=== PATIENT | female | born 1960 | race Caucasian/White ===

== ENCOUNTER → 2019-09-21 13:49 | Outpatient (BNVA) | payer MEDICAID, SELFPAY | PROVIDERS: PCP Family Medicine; Visit Provider Otolaryngology | DX: J32.9 Chronic sinusitis, unspecified (principal); J34.2 Deviated nasal septum; J34.3 Hypertrophy of nasal turbinates; K21.9 Gastro-esophageal reflux disease without esophagitis; R49.0 Dysphonia; J38.1 Polyp of vocal cord and larynx; F17.210 Nicotine dependence, cigarettes, uncomplicated | CPT/HCPCS: 99203; 99214 ==

== ENCOUNTER 2019-10-05 09:41 | Outpatient (CLI) | payer MEDICAID, SELFPAY ==
--- NOTE | 2019-10-05 10:30 | CT_ITS ---
WS: [id number] CT SINUSES TECHNIQUE: Noncontrast CT of the paranasal sinuses with coronal and sagittal reformatted images. CLINICAL INFORMATION: chronic sinusitis COMPARISON: 8 ,009 DLP: 504.[address] scans at [facility] use at least one of these dose optimization techniques: automat ed exposure control; mA and/or kV adjustment per patient size (includes targeted exams where dose is matched to clinical indication); or iterative reconstruction. FINDINGS: Nasal septum is midline. Prior postoperative changes maxillary antrostomies with ethmoidectomies. Max illary antra are patent. Ostiomeatal units are patent. Right maxillary retention cyst measuring 9 mm. Left maxillary sinus is well aerated. A few secretions within the right frontal sinus and frontal ethmoidal recess. Trace mucosal thickenin g in the ethmoid air cells. Secretions within the left sphenoid sinus consistent with sinusitis. Muco norma thickening along the sphenoid sinus ostia. Mastoid air cells are well aerated. Normal posterior n asopharynx. CT/CT sinus wo con* [id number] IMPRESSION: 1. Prior postoperative changes bilateral maxillary antrostomies and ethmoidect omies. Bilateral turbinate reductions. 2. Maxillary antra are patent. 3. Nasal septum is midline. 4. A few secretions consistent with mild sinusitis in the right frontoethmoida l recess and left sphenoid sinus. 5. Maxillary sinus well aerated with a 9 mm right retention cyst. 6. Mastoid air cells well aerated.
== END 2019-10-05 09:42 | disposition home or self-care (01) ==
LOC: CT 09:43
PROVIDERS: Family Provider Nurse Practitioner Family; Visit Provider Otolaryngology
DX: J32.9 Chronic sinusitis, unspecified (principal); Z98.890 Other specified postprocedural states
CPT/HCPCS: 70486

== ENCOUNTER → 2019-10-06 14:31 | Outpatient (BNVA) | payer MEDICAID, SELFPAY | PROVIDERS: Family Provider Nurse Practitioner Family; PCP Nurse Practitioner Family; Visit Provider Otolaryngology | DX: J34.2 Deviated nasal septum (principal); J34.3 Hypertrophy of nasal turbinates; J32.9 Chronic sinusitis, unspecified; K21.9 Gastro-esophageal reflux disease without esophagitis; R49.0 Dysphonia; J38.1 Polyp of vocal cord and larynx; F17.210 Nicotine dependence, cigarettes, uncomplicated | CPT/HCPCS: 31575; 96372; 99214; J3301 ==

== ENCOUNTER 2019-12-14 10:06 | Emergency (ER) | payer MEDICAID, SELFPAY ==
[2019-12-14 10:08] VITALS: BMI 25.7
[2019-12-14 10:11] VITALS: BP 131/96; PULSE 68; RESP 16; TEMP 36.8; O2SAT 98
--- NOTE | 2019-12-14 10:15 | ECG_ITS ---
Measurements Intervals [place] Rate: 68 P: 24 LA: 150 QRS: 6 QRSD: 120 T: 56 QT: 373 QTc: 397 SINUS RHYTHM MODERATE INTRAVENTRICULAR CONDUCTION DELAY [110+ ms QRS DURATION] Compared to ECG 04/25/2019 16:57:56 Intraventricular conduction delay now present Sinus bradycardia no longer present Electronically Signed On 12-14-2019 15:43:43 CDT by Bright Rivers M.D. [email or web address]
--- NOTE | 2019-12-14 10:15 | XR_ITS ---
WS: [id number] CHEST XRAY TECHNIQUE: Portable chest. CLINICAL INFORMATION: dyspnea/cough COMPARISON: April 25, 2019 FINDINGS: Heart: Normal cardiac silhouette. Lungs: Lungs are clear. No consolidation or pleural effusion. A few calcified granulomas. Bones: Normal visualized bony structures. XR/XR chest 1V portable [id number] IMPRESSION: No acute chest findings
--- NOTE | 2019-12-14 10:21 | ED_ITS ---
HPI - SOB/Dyspnea General: Chief Complaint: Shortness of Breath/Dyspnea Stated Complaint: sob Time Seen by Provider: 12/14/19 10:10 History of Present Illness: HPI Narrative: 59-year-old female presents emergency room with complaints of is initially having had a sinus infection she was seen on the or and started on some oral antibiotics she has about 2 days of those left. Despite says she continues to have shortness of breath aching in her chest with a moderately productive cough for green sputum. She denies any fever sweats or chills. She is not had any radiation of the pain into her neck or arms no vomiting or diarrhea she has had problems with asthma in the past but is currently not been using any inhalers. She denies any GI or symptoms denies any abdominal pain. MD elicited complaint: cough Pertinent past history: asthma Onset (ago): day(s) (5-6) Context: recent illness Timing: constant Severity: moderate Exacerbating factors: nothing Relieving factors: nothing Known history of: asthma Associated symptoms: Reports chest congestion and cough; Deny abdominal pain, chest pain, fever(s), nausea, orthopnea or vomiting Review of Systems Const: Denies: fever(s), chills, body aches, change in appetite, fatigue or malaise ENMT: Reports: nasal discharge and nasal congestion; Denies: throat pain or ear or mastoid pain Card: Reports: dyspnea on exertion; Denies: chest pain, edema or orthopnea Resp: Reports: change in phlegm color and chest congestion; Denies: dyspnea, productive cough or non-productive cough GI: Denies: abdominal pain, nausea, vomiting, hematemesis, coffee ground emesis, diarrhea, constipation, bloating, hematochezia or melena : Denies: flank pain, difficulty voiding, dysuria, urinary frequency or urinary urgency Skin/Breast: Denies: rash or pruritus PFSH ED PFSH: Medical History Anxiety and depression Celiac disease Chronic sinusitis Conversion disorder Dysphonia GERD (gastroesophageal reflux disease) Hypertension Hypothyroidism Nasal septal deformity Nasal turbinate hypertrophy SARAH (obstructive sleep apnea) Loren's edema of vocal folds Surgical History H/O colonoscopy 2017 H/O esophagogastroduodenoscopy 10/2013 H/O shoulder surgery H/O: hysterectomy History of carpal tunnel release History of ERCP Hx of appendectomy Hx of cholecystectomy Status post decompression of compartment syndrome right leg with several surgeries after horse accident Family History Other CAD (coronary artery disease) Diabetes Denies family history of Anesthesia complication Bleeding disorder Social History Smoking and tobacco status: current every day smoker Alcohol intake: never Household members: spouse Marital status: Current occupational status: disabled History of recent travel: No Physical Exam Const: COMMON NORMALS: no acute distress GENERAL APPEARANCE: cooperative and comfortable ORIENTATION/CONSCIOUSNESS: Yes awake, Yes oriented to person, Yes oriented to place and Yes oriented to time HENMT: COMMON NORMALS: normocephalic, atraumatic, hearing grossly normal bilaterally, external ears normal, EAC's normal, TM's normal bilaterally, Normal nasal mucous membranes and turbinates present, moist oral mucous membranes and oropharynx normal HEAD & SCALP: normocephalic and atraumatic NOSE: Normal nasal mucous membranes and turbinates present EXTERNAL EAR: Yes external ears normal EXTERNAL AUDITORY CANAL: EAC's normal TYMPANIC MEMBRANE: TM's normal bilaterally Eye: COMMON NORMALS: Equal, round and reactive pupils present, EOMs intact bilaterally, conjunctivae normal and no scleral icterus CONJUNCTIVA: Yes conjunctivae normal PUPIL: Yes Equal, round and reactive pupils present Neck/C-Spine: COMMON NORMALS: full ROM, no lymphadenopathy, supple and no JVD Lymph: LYMPHATIC: no lymphadenopathy noted and no lymphedema noted Resp: COMMON NORMALS: normal respiratory effort, No retractions, No use of accessory muscles and clear to auscultation bilaterally AUSCULTATION: clear to auscultation bilaterally Cardio: COMMON NORMALS: no JVD, regular rate, regular rhythm and No murmurs pr esent (Cardio) RATE: regular rate RHYTHM: regular rhythm GI: COMMON NORMALS: Soft to palpation and No hepatosplenomegaly present AUSCULTATION: Yes normoactive bowel sounds PALPATION: Yes Soft to palpation, No Tenderness to palpation present (GI), No Guarding due to palpation present (GI) and Yes No hepatosplenomegaly present Extremity: COMMON NORMALS: normal to inspection, capillary refill normal, no clubbing, cyanosis or edema, no calf tenderness and no pedal edema Neuro: SENSORIUM/ORIENTATION: Yes oriented to person, Yes oriented to place and Yes oriented to time Skin: COMMON NORMALS: no rashes or lesions noted GENERAL SKIN EXAM: no rashes or lesions noted Course Vital Signs: Vital signs: Vital Signs Temperature 98.3 F 12/14/19 10:11 Pulse Rate 71 12/14/19 11:16 Respiratory Rate 16 12/14/19 11:16 Blood Pressure 127/84 12/14/19 11:16 Pulse Oximetry 97 12/14/19 11:16 MDM - SOB/Dyspnea MDM Narrative: Medical decision making narrative: Chest x-ray is clear suspect she is having a little asthma attack we will put her in a short course of prednisone and an albuterol inhaler continue taking antibiotics previously prescribed Lab Data: Labs: Lab Results 12/14/19 12/14/19 Range/Units 10:22 10:22 WBC 5.8 (4.0-10.0) 10^3/ uL RBC 4.53 (4.1-5.3) 10^6/u L Hgb 14.2 (11.5-15.3) g/dL Hct 43.7 (37.0-47.0) % MCV 96.5 (81-99) fL MCH 31.3 (28.0-34.0) pg MCHC 32.5 (30.0-36.0) g/dL RDW 13.6 (12.1-15.1) % Plt Count 198 (130-400) 10^3/c mm MPV 10.6 H (7.4-10.4) fL Neut % (Auto) 68.2 % Lymph % (Auto) 19.7 % Warrick % (Auto) 9.9 % Eos % (Auto) 1.6 % Baso % (Auto) 0.3 % Neut # (Auto) 3.9 (1.8-7.7) 10^3/u L Lymph # (Auto) 1.1 (0.8-4.8) 10^3/u L Warrick # (Auto) 0.6 (0.2-0.9) 10^3/u L Eos # (Auto) 0.1 (0.0-0.8) 10^3/u L Baso # (Auto) 0.0 (0.0-0.1) 10^3/u L Nucleated RBC % (a uto) 0 % Nucleated RBCs # 0.0 /100WBC Sodium 139 (136-145) mmol/L Potassium 3.7 (3.5-5.1) mmol/L Chloride 101 (98-107) mmol/L Carbon Dioxide 28 (22-29) mmol/L Anion Gap 13.7 (5-19) BUN 20 (8-23) mg/dL Creatinine 0.9 (0.5-0.9) mg/dL GFR Calculation 63.7 L (90-130) mL/min Glucose 122 H (65-115) mg/dL Calculated Osmolal ity 286 (285-295) mOsm/k g Calcium 10.3 (8.5-10.5) mg/dL Total Bilirubin 0.5 (0.15-1.2) mg/dL AST 16 (0-32) U/L ALT 18 (0-33) U/L Alkaline Phosphata se 103 (35-105) IU/L Total Protein 7.4 (6.6-8.7) g/dL Albumin 4.4 (3.5-5.2) g/dL Globulin 3.0 (1.3-4.6) g/dL Discharge Plan Discharge Patient Disposition: Home, Self-Care Clinical Impression: Asthma Condition: Stable Prescriptions: New albuterol sulfate 90 mcg/actuation HFA aerosol inhaler 2 inh INHALATION Q4H PRN (Reason: shortness of breath or wheezing) Qty: 18 RF: 0 Medrol (Will) 4 mg tablets,dose pack See Rx Instructions .ROUTE .COMPLEX Qty: 21 RF: 0 No Action venlafaxine [Effexor XR] 150 mg capsule,extended release 24hr 150 mg PO DAILY RF: 0 metoprolol tartrate 25 mg tablet 25 mg PO BID RF: 0 levothyroxine 25 mcg capsule 25 mcg PO DAILY RF: 0 trazodone 100 mg tablet 150 mg PO BEDTIME RF: 0 buspirone 5 mg tablet 5 mg PO TID PRN (Reason: unknown) RF: 0 Zenpep 10,000-32,000 -42,000 unit capsule,delayed release(DR/EC) 1 cap PO TID Qty: 90 RF: 12 azelastine 137 mcg (0.1 %) aerosol,spray 2 spray INTRANASAL BID RF: 0 Flonase Allergy Relief 50 mcg/actuation Lacrosse,Suspension 2 spray INTRANASAL DAILY RF: 0 doxycycline hyclate 100 mg Capsule 100 mg PO BID RF: 0 Discharge Orders: Discharge Order (Routine); Ordered 12/14/19 Ordered By: Miguelito Nix Referrals: Candis Ramsey [Primary Care Provider] - Discharge Diet: Advance as tolerated Discharge Activity: Increase activity as tolerated Activity Restrictions/Additional Instructions: Follow-up with your primary care doctor if not improving return if worsens Discharge Date/Time: 12/14/19 11:16 Coding Level of Care Code ED Director Education for Chg Fwd Exam Comprehensive
[2019-12-14 10:32] LABS: Basophils % 0.3 %; Eosinophils # 0.1 10^3/uL (0.0-0.8); Eosinophils % 1.6 %; Hematocrit 43.7 % (37.0-47.0); Hemoglobin 14.2 g/dL (11.5-15.3); Lymphocytes # 1.1 10^3/uL (0.8-4.8); Lymphocytes % 19.7 %; Mean Corpuscular HGB Conc 32.5 g/dL (30.0-36.0); Mean Corpuscular Hemoglobin 31.3 pg (28.0-34.0); Mean Corpuscular Volume 96.5 fL (81-99); Mean Platelet Volume 10.6 fL (7.4-10.4); Monocytes # 0.6 10^3/uL (0.2-0.9); Monocytes % 9.9 %; Neutrophils # 3.9 10^3/uL (1.8-7.7); Neutrophils % 68.2 %; Nucleated Red Blood Cells % 0 %; Platelet Count 198 10^3/cmm (130-400); Red Blood Count 4.53 10^6/uL (4.1-5.3); Red Cell Distribution Width 13.6 % (12.1-15.1); White Blood Count 5.8 10^3/uL (4.0-10.0)
[2019-12-14 10:58] LABS: Alanine Aminotransferase 18 U/L (0-33); Albumin Level 4.4 g/dL (3.5-5.2); Alkaline Phosphatase 103 IU/L (35-105); Anion Gap 13.7 (5-19); Aspartate Amino Transferase 16 U/L (0-32); Blood Urea Nitrogen 20 mg/dL (8-23); Calcium 10.3 mg/dL (8.5-10.5); Carbon Dioxide 28 mmol/L (22-29); Chloride 101 mmol/L (98-107); Glomerular Filtration Rate 63.7 mL/min (90-130); Glucose 122 mg/dL (65-115); Osmolality Calculated 286 mOsm/kg (285-295); Potassium 3.7 mmol/L (3.5-5.1); Sodium 139 mmol/L (136-145); Total Bilirubin 0.5 mg/dL (0.15-1.2); Total Protein 7.4 g/dL (6.6-8.7)
[2019-12-14 11:16] VITALS: BP 127/84; PULSE 71; RESP 16; O2SAT 97
== END 2019-12-14 11:16 | disposition home or self-care (01) ==
PROVIDERS: Emergency Provider Family Medicine; PCP Nurse Practitioner Family
DX: J45.909 Unspecified asthma, uncomplicated (principal); K21.9 Gastro-esophageal reflux disease without esophagitis; I10 Essential (primary) hypertension; F17.210 Nicotine dependence, cigarettes, uncomplicated; E03.9 Hypothyroidism, unspecified
CPT/HCPCS: 12345; 36415; 71045; 80053; 85025; 93005; 99282; 99283

== ENCOUNTER 2020-02-03 12:36 | Outpatient (CLI) | payer MEDICAID, SELFPAY ==
--- NOTE | 2020-02-03 13:02 | MM_ITS ---
WS: [id number] SCREENING DIGITAL MAMMOGRAM WITH CAD HISTORY: SCREENING COMPARISON: 01/12/2019 and 01/01/2018 Bilateral CC and MLO views submitted. Computer aided detection analyzed. Breast composition: There are scattered areas of fibroglandular density. No suspicious masses, microc alcifications or architectural distortion. Benign calcification in the anterior LEFT breast. MM/[place] [id number] IMPRESSION: BI-RADS: 2-Benign FOLLOW UP: 1 Year Follow-up
== END 2020-02-03 12:37 | disposition home or self-care (01) ==
LOC: RADSHAW 12:40
PROVIDERS: PCP Nurse Practitioner Family; Visit Provider Nurse Practitioner Family
DX: Z12.31 Encounter for screening mammogram for malignant neoplasm of breast (principal)
CPT/HCPCS: 77067

== ENCOUNTER 2020-04-25 09:03 | Outpatient (CLI) | payer MEDICAID, SELFPAY ==
--- NOTE | 2020-04-25 09:13 | MR_ITS ---
WS: [id number] MRI RIGHT SHOULDER NONCONTRAST TECHNIQUE: Sagittal T2, coronal T1, T2 and proton density imaging. Axial gradient PDE imaging. CLINICAL INFORMATION: RIGHT ANTERIOR SHOULDER PAIN COMPARISON: MRI FINDINGS: Moderate degenerative arthritis at the AC joint with mild downsloping of the acromion. Mild edema at the AC joint. Chronic thinning of the distal supraspinatus. Supraspinatus appears intact. Normal infr aspinatus. Normal teres minor. Subscapularis is normal in appearance. Normal biceps tendon in the bic ipital groove. Degenerative fraying of the glenoid labrum. Cystic degenerative changes involving the anterior latera l humeral head. Moderate to advanced degenerative arthritis glenohumeral joint with joint space narro wing. Loose body in the axillary recess measuring 12 mm. This was present previously but slightly lar danish today. No other significant interval changes. MR/MR shoulder RT wo con* [id number] IMPRESSION: 1. Moderate arthritis at the AC joint with edema and mild downsloping of the a cromion. 2. Chronic thinning of the supraspinatus. Rotator cuff appears intact. 3. Normal biceps tendon in the bicipital groove. 4. 12 mm calcified loose body in the axillary recess. 5. Subchondral cystic degenerative changes involving the humeral head.
== END 2020-04-25 09:04 | disposition home or self-care (01) ==
LOC: RADWPI 09:06
PROVIDERS: PCP Nurse Practitioner Family; Visit Provider Nurse Practitioner Family
DX: M19.011 Primary osteoarthritis, right shoulder (principal)
CPT/HCPCS: 73221

== ENCOUNTER 2020-11-15 10:15 | Outpatient (RCR) | payer MEDICAID, SELFPAY | END 2020-11-23 23:59 | disposition home or self-care (01) | LOC: SPT 10:15 | PROVIDERS: PCP Nurse Practitioner Family; Referring Provider Physician Assistant; Visit Provider Physician Assistant | DX: Z96.611 Presence of right artificial shoulder joint (principal) | CPT/HCPCS: 97161 ==

== ENCOUNTER → 2021-01-15 15:05 | Outpatient (BNVA) | payer MEDICAID, SELFPAY | PROVIDERS: PCP Family Medicine Adult Medicine; Visit Provider Family Medicine Adult Medicine | DX: K86.81 Exocrine pancreatic insufficiency (principal); K90.0 Celiac disease; E73.9 Lactose intolerance, unspecified; F41.8 Other specified anxiety disorders; J01.90 Acute sinusitis, unspecified; J30.9 Allergic rhinitis, unspecified | CPT/HCPCS: 80053; 85025 ==

== ENCOUNTER → 2021-01-22 09:18 | Outpatient (BNVA) | payer MEDICAID, SELFPAY | PROVIDERS: PCP Family Medicine Adult Medicine; Visit Provider Internal Medicine | DX: N18.30 Chronic kidney disease, stage 3 unspecified (principal); R30.0 Dysuria; K90.0 Celiac disease | CPT/HCPCS: 80053; 81003; 82607; 82746; 83036; 83550; 84443 ==

== ENCOUNTER 2021-02-04 07:35 | Outpatient (CLI) | payer MEDICAID, SELFPAY ==
--- NOTE | 2021-02-04 08:00 | MR_ITS ---
WS: [id number] Diane Mendoza 06 09 1960 INDICATION: Renal insufficiency. Pancreatitis. TECHNIQUE: Axial T2, coronal T2, coronal 2-D fiesta, dual Echo and out of phase FINDINGS: Liver is normal in appearance. No intrahepatic biliary ductal dilatation. Normal common amanda e duct. Pancreas is normal in appearance. Normal pancreatic head. No hydronephrosis in either kidney. Tiny left renal cysts. Largest measures 11 mm. Normal caliber abdominal aorta. Prior cholecystectomy. Adrenal glands are normal. Normal GE junction. Normal spleen. Normal portal vein and splenic vein. No other significant findings. MR/MR abdomen wo con [id number] IMPRESSION: 1. Liver is normal in appearance where visualized. No intrahepatic biliary naa may dilatation. 2. Pancreas is normal in appearance. Normal pancreatic head. Normal common amanda e duct. 3. No hydronephrosis in either kidney. Normal renal parenchyma. 4. A few tiny incidental simple left renal cysts largest measuring 11 mm. 5. Prior cholecystectomy.
== END 2021-02-04 07:36 | disposition home or self-care (01) ==
LOC: RADSHAW 07:36
PROVIDERS: PCP Family Medicine Adult Medicine; Visit Provider Family Medicine Adult Medicine
DX: N18.30 Chronic kidney disease, stage 3 unspecified (principal); K85.90 Acute pancreatitis without necrosis or infection, unspecified; Z90.49 Acquired absence of other specified parts of digestive tract; Q61.02 Congenital multiple renal cysts
CPT/HCPCS: 74181

== ENCOUNTER 2021-02-25 13:17 | Outpatient (CLI) | payer MEDICAID, SELFPAY ==
--- NOTE | 2021-02-25 14:15 | US_ITS ---
WS: [id number] ULTRASOUND RENAL TECHNIQUE: Ultrasound examination of both kidneys. CLINICAL INFORMATION: CKD COMPARISON: None. FINDINGS: RIGHT: Right kidney is normal in size and appearance. Echogenicity: Normal. Cortical thickness: 1.0 cm; Normal. Hydronephrosis: None. Perinephric fluid: None. Right kidney measures: 11.3 cm x 3.5 cm x 4.4 cm. LEFT: Left upper pole renal cyst measuring 8.7 x 7.9 mm Left kidney is normal in size and appearance. Echogenicity: Normal. Cortical thickness: 1.1 cm; Normal. Hydronephrosis: None. Perinephric fluid: None. Left kidney measures: 11.3 cm x 6.4 cm x 4.1 cm. Normal visualized aorta. Bladder is incompletely distended measuring 49 cc. US/US renal BI* [id number] IMPRESSION: 1. No hydronephrosis in either kidney. 2. Tiny left upper pole simple renal cyst measuring 8.7 x 7.9 mm
== END 2021-02-25 13:18 | disposition home or self-care (01) ==
PROVIDERS: PCP Family Medicine Adult Medicine; Visit Provider Internal Medicine
DX: N18.30 Chronic kidney disease, stage 3 unspecified (principal); Q61.01 Congenital single renal cyst
CPT/HCPCS: 76770

== ENCOUNTER 2021-03-01 12:14 | Outpatient (CLI) | payer MEDICAID, SELFPAY ==
--- NOTE | 2021-03-01 | USCV_ITS ---
Reji Diane Age: 60 Gender: F : 1960 Exam Date: 03/01/2021 12:34 Ordering Phys: Tereso Larson MD Technologist: Aarti Braswell [place] [facility] [place]: DECREASED GFR Aortic Velocity @ SMA (cm/s) 60.7 RIGHT KIDNEY LEFT KIDNEY Velocity (cm/s) Velocity (cm/s) Sys/Salazar Sys/Salazar Resistive Index Resistive Index 31.1 / 11.1 0.64 Proximal Renal Artery 99.6 / 40.9 0.59 59.2 / 23.7 0.60 Mid Renal Artery 79.2 / 33.2 0.58 63.9 / 26.0 0.59 Distal Renal Artery 63.8 / 33.2 0.48 54.4 / 24.8 0.54 Hilar 56.4 / 21.8 0.61 44.4 / 17.1 0.62 Upper Pole 30.7 / 13.4 0.56 47.9 / 19.7 0.59 Mid Pole 36.0 / 13.8 0.62 45.3 / 17.1 0.62 Lower Pole 31.0 / 13.8 0.55 1.10 Renal Aortic Ratio 1.64 Accleration Index (cm/sec2) 634.00 Hilar 720.00 368.00 Upper Pole 832.00 1127.0 Mid Pole 452.00 0 636.00 Lower Pole 327.00 104.7 Kidney Length (mm) 97.9 FINDINGS Comparison: none. No evidence of abdominal aortic aneurysm. There is no evidence of hemodynamically significant right renal artery stenosis. There is no evidence of hemodynamically significant left renal artery stenosis. CONCLUSIONS There is no sonographic evidence of hemodynamically significant renal artery stenosis bilaterally. Dr. Anabel Bolanos DO (Electronically Signed) Final Date: 01 March 2021 13:27 S
== END 2021-03-01 12:15 | disposition home or self-care (01) ==
LOC: RAD 12:15
PROVIDERS: PCP Family Medicine Adult Medicine; Visit Provider Family Medicine Adult Medicine
DX: N18.30 Chronic kidney disease, stage 3 unspecified (principal); K90.0 Celiac disease
CPT/HCPCS: 93975

== ENCOUNTER 2021-07-08 14:16 | Outpatient (CLI) | payer MEDICAID, SELFPAY ==
--- NOTE | 2021-07-08 14:20 | MM_ITS ---
WS: [id number] BILATERAL DIGITAL SCREENING MAMMOGRAPHY WITH CAD CLINICAL INFORMATION: SCREENING HISTORY: Screening mammogram. No current complaints. COMPARISON: February 03, 2020 TECHNIQUE: Bilateral CC and MLO views. FINDINGS: Scattered fibroglandular densities bilaterally. No suspicious focal mass, asymmetry, calcifications, or architectural distortion. No evidence of malignancy. MM/[place] [id number] IMPRESSION: BI-RADS: 1-Negative FOLLOW UP: 1 Year Follow-up Recommend return to annual screening mammography.
== END 2021-07-08 14:17 | disposition home or self-care (01) ==
LOC: RADSHAW 14:19
PROVIDERS: PCP Family Medicine Adult Medicine; Visit Provider Family Medicine Adult Medicine
DX: Z12.31 Encounter for screening mammogram for malignant neoplasm of breast (principal)
CPT/HCPCS: 77067

== ENCOUNTER → 2021-07-16 14:28 | Outpatient (BNVA) | payer MEDICAID, SELFPAY | PROVIDERS: PCP Family Medicine Adult Medicine; Visit Provider Family Medicine Adult Medicine | DX: E03.9 Hypothyroidism, unspecified (principal); N18.2 Chronic kidney disease, stage 2 (mild) | CPT/HCPCS: 80053; 84443; 85025 ==

== ENCOUNTER 2021-10-31 11:20 | Outpatient (CLI) | payer MEDICAID, SELFPAY ==
--- NOTE | 2021-10-31 12:00 | CT_ITS ---
WS: [id number] CT PARANASAL SINUSES HISTORY: chronic sinusitis TECHNIQUE: Contiguous 2.5 mm axial images obtained through the sinuses. Images are reconstructed in s agittal and coronal planes. All CT scans at [facility] use at least one of these dose optimiz ation techniques: automated exposure control; mA and/or kV adjustment per patient size (includes targ eted exams where dose is matched to clinical indication); or iterative reconstruction. DLP: 302.78 mGy.cm COMPARISON: 10/05/2019 Patient is status post maxillary antrostomies and ethmoidectomies. Widely patent ostiomeatal units. T he postoperative changes are very similar to the prior study from 10/05/2019. Frontal sinuses: Small amount of mucoperiosteal thickening extending along the RIGHT frontal ethmoid recess. Mild improvement in mucoperiosteal thickening in the RIGHT frontal sinus since the prior stud y. Sphenoid sinus: Very minimal mucoperiosteal thickening with mild improvement since the prior study. Ethmoid sinuses: Enlargement of the ethmoid air cells. Small amount of mucoperiosteal thickening in t he posterior RIGHT ethmoid air cells. This has slightly progressed. Maxillary sinus: Very minimal mucoperiosteal thickening at the floor the RIGHT maxillary sinus with a small polyp versus mucous retention cyst. Cyst measures 9 mm. Ostiomeatal unit: Widely patent. No significant deviation of the nasal septum. There is no significant spurring. Cribriform plate is intact. Normal fovea ethmoidalis. CT/CT sinus wo con* [id number] IMPRESSION: 1. No significant deviation of the nasal septum or spurring. 2. Postoperative changes of maxillary antrostomies and ethmoidectomies are sta ble. 3. Very minimal mucoperiosteal thickening in the sinuses as above. Only minima l progression in the posterior RIGHT ethmoid air cells.
== END 2021-10-31 11:21 | disposition home or self-care (01) ==
PROVIDERS: PCP Family Medicine Adult Medicine; Visit Provider Otolaryngology
DX: J32.9 Chronic sinusitis, unspecified (principal)
CPT/HCPCS: 70486

== ENCOUNTER 2021-11-01 01:02 | Emergency (ER) | payer MEDICAID, SELFPAY ==
[2021-11-01 01:05] VITALS: PULSE 61; RESP 17; TEMP 36.8; O2SAT 97; BMI 20.1
--- NOTE | 2021-11-01 01:07 | XRR_ITS ---
PROCEDURE INFORMATION: Exam: XR Chest Exam date and time: 11/01/2021 1:21 AM Age: 61 years old Clinical indication: Other: AMS TECHNIQUE: Imaging protocol: XR of the chest. Views: 1 view. COMPARISON: CR XR chest 2V* [id number] 09/14/2020 10:13 AM FINDINGS: Lungs: There are low lung volumes. Otherwise, the lungs are clear. Pleural spaces: Unremarkable. No pleural effusion. No pneumothorax. Heart/Mediastinum: Unremarkable. No cardiomegaly. Bones/joints: Reverse right total shoulder arthroplasty in anatomic alignment. Organs: There has been a cholecystectomy. XR/XR chest 1V portable [id number] IMPRESSION: There are low lung volumes. Otherwise, the lungs are clear.
--- NOTE | 2021-11-01 01:07 | ECG_ITS ---
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 Measurements Intervals [place] Rate: 58 P: 30 LA: 157 QRS: -20 QRSD: 94 T: 34 QT: 381 QTc: 377 Interpretive Statements SINUS BRADYCARDIA Compared to ECG 12/14/2019 10:20:31 Sinus rhythm no longer present Intraventricular conduction delay no longer present Electronically Signed On 11-01-2021 16:05:00 CDT by Layton Boothe M.D. [id number]
--- NOTE | 2021-11-01 01:07 | CTR_ITS ---
PROCEDURE INFORMATION: Exam: CT Head Without Contrast Exam date and time: 11/01/2021 1:31 AM Age: 61 years old Clinical indication: Altered mental status/memory loss; Additional info: AMS TECHNIQUE: Imaging protocol: Computed tomography of the head without contrast. Radiation optimization: All CT scans at this facility use at least one of these dose optimization techniques: automated exposure control; mA and/or kV adjustment per patient size (includes targeted exams where dose is matched to clinical indication); or iterative reconstruction. Other technique: STROKE PROTOCOL was implemented. COMPARISON: CT head wo con* [id number] 04/25/2019 5:21 PM RADIATION DOSE METRICS: Total DLP (mGy-cm): 890.95 FINDINGS: Brain: No acute infarct or hemorrhage. Cerebral ventricles: No ventriculomegaly. Paranasal sinuses: Paranasal sinuses are clear. No air-fluid level. Mastoid air cells: Visualized mastoid air cells are clear. Bones/joints: No calvarial or skull base fracture. Soft tissues: Unremarkable. CT/CT head wo con* [id number] IMPRESSION: 1. No calvarial or skull base fracture. 2. No acute infarct or hemorrhage. ASSESSMENT: ASPECTS ([place] Stroke Program Early CT Score) is 10.
[2021-11-01 01:10] VITALS: PULSE 61
--- NOTE | 2021-11-01 01:14 | W.ED.NEUROSD ---
HPI - Neuro Symptoms/Deficit General: Chief Complaint: Altered Mental Status Stated Complaint: AMS Time Seen by Provider: 11/01/21 01:06 Source: EMS Mode of arrival: EMS Limitations: altered mental status History of Present Illness: 61-year-old female that EMS states and went to bed at 3:00 in the afternoon. She has been altered since then per EMS. and told him that he tried to wake her up and she could not move any of her extremities and was having a hard time speaking. Here patient will follow commands by shaking her head but will not move any of her extremities is unable to speak to me at all. No recent head injuries no recent injuries noted. She has a history of a stroke. Review of Systems General: Reports: ROS unobtainable due to mental status PFSH ED PFSH: Medical History (Updated 11/01/21 @ 02:47 by Quang Clinton MD) Acute sinusitis Allergic rhinitis due to allergen Anxiety and depression Celiac disease Chronic right hip pain CKD (chronic kidney disease) stage 2, GFR 60-89 ml/min Conversion disorder Dysphonia Folate deficiency GERD (gastroesophageal reflux disease) Groin strain Left anterior groin strain/tendonitis at attachment of anterior leg muscles Hypertension Hypothyroidism Lactose intolerance Nasal septal deformity SARAH (obstructive sleep apnea) Vitamin B12 deficiency (non anemic) Surgical History H/O colonoscopy 2016 H/O esophagogastroduodenoscopy 10/2013 H/O: hysterectomy History of carpal tunnel release History of ERCP History of right shoulder replacement Hx of appendectomy Hx of cholecystectomy Status post decompression of compartment syndrome right leg with several surgeries after horse accident Family History Other CAD (coronary artery disease) Diabetes Denies family history of Anesthesia complication Bleeding disorder Social History Smoking and tobacco status: current every day smoker (pack a day 25 yrs) Alcohol intake: never Household members: spouse Marital status: Current occupational status: disabled History of recent travel: No NIH stroke score NIHSS: Level Of Consciousness - 1a: 3 Level Of Consciousness Questions - 1b: Neither Correct Level Of Consciousness Commands - 1c: Neither Correct Best Gaze - 2: Normal Visual Echevarria - 3: No Visual Loss Facial Palsy - 4: Normal Motor Arm Right - 5: No Effort Against [place] Motor Arm Left - 5: No Effort Against [place] Motor Leg Right - 6: No Effort Against [place] Motor Leg Left - 6: No Effort Against [place] Limb Ataxia - 7: Absent Sensory - 8: Normal Best Language - 9: Mute; Global Aphasia Dysarthia - 10: Severe Dysarthia Extinction And Inattention - 11: 1 Score: Total Score: 25 Physical Exam Const: COMMON NORMALS: negative for patient oriented x3 EXAM LIMITATIONS: altered mental status HENMT: COMMON NORMALS: normocephalic and atraumatic HEAD & SCALP: normocephalic and atraumatic THROAT: posterior oropharynx normal Eye: COMMON NORMALS: Equal, round and reactive pupils present and EOMs intact bilaterally PUPIL: Yes Equal, round and reactive pupils present Neck/C-Spine: COMMON NORMALS: full ROM Chest: COMMONS NORMALS: normal inspection of the chest Resp: COMMON NORMALS: normal respiratory effort and clear to auscultation bilaterally AUSCULTATION: clear to auscultation bilaterally Cardio: COMMON NORMALS: regular rate and regular rhythm RATE: regular rate RHYTHM: regular rhythm GI: COMMON NORMALS: Normal to inspection, nondistended, normoactive bowel sounds present Extremity: COMMON NORMALS: normal to inspection Neuro: COMMON NORMALS: negative for patient oriented x3 CRANIAL NERVES: Yes CN normal except as noted SPEECH: speech abnormal MOTOR EXAM: No 5/5 motor strength present throughout Course Vital Signs: Vital signs: Vital Signs Temperature 98.2 F 11/01/21 01:05 Pulse Rate 60 11/01/21 03:00 Respiratory Rate 17 11/01/21 03:00 Blood Pressure 103/99 11/01/21 03:00 Pulse Oximetry 99 11/01/21 03:00 [facility] - Neuro Symptoms/Deficit Medical Decision Making Patient presents here with altered mental status that has since completely resolved. She had taken some [place] possibly TIA she is awake alert answering all my question appropriately walking around the room and wants to go home. Her head CT here is normal we will discharge her home with her she is to follow-up with her PCP and return if worsening. Lab Data : 11/01/21 00:40 11/01/21 00:40 Radiology Impressions Chest X-Ray 11/01/21 01:07 IMPRESSION: There are low lung volumes. Otherwise, the lungs are clear. Head CT 11/01/21 01:07 IMPRESSION: 1. No calvarial or skull base fracture. 2. No acute infarct or hemorrhage. ASSESSMENT: ASPECTS (Marine Stroke Program Early CT Score) is 10. Laboratory Results WBC 6.2 10^3/uL (4.0-10.0) 11/01/21 00:40 RBC 4.95 10^6/uL (4.1-5.3) 11/01/21 00:40 Hgb 15.4 g/dL (11.5-15.3) H 11/01/21 00:40 Hct 46.5 % (37.0-47.0) 11/01/21 00:40 MCV 93.9 fl (81-99) 11/01/21 00:40 MCH 31.1 pg (28.0-34.0) 11/01/21 00:40 MCHC 33.1 g/dL (30.0-36.0) 11/01/21 00:40 RDW 13.1 % (12.1-15.1) 11/01/21 00:40 Plt Count 190 10^3/cmm (130-400) 11/01/21 00:40 MPV 11.7 fL (7.4-10.4) H 11/01/21 00:40 Neut % (Auto) 63.6 % 11/01/21 00:40 Lymph % (Auto) 26.4 % 11/01/21 00:40 [place] % (Auto) 7.6 % 11/01/21 00:40 Eos % (Auto) 1.8 % 11/01/21 00:40 Baso % (Auto) 0.3 % 11/01/21 00:40 Neut # (Auto) 3.93 10^3/uL (1.8-7.7) 11/01/21 00:40 Lymph # (Auto) 1.6 10^3/uL (0.8-4.8) 11/01/21 00:40 [place] # (Auto) 0.5 10^3/uL (0.2-0.9) 11/01/21 00:40 Eos # (Auto) 0.1 10^3/uL (0.0-0.8) 11/01/21 00:40 Baso # (Auto) 0.0 10^3/uL (0.0-0.1) 11/01/21 00:40 Nucleated RBC % (auto) 0 % 11/01/21 00:40 Nucleated RBCs # 0.0 /100WBC 11/01/21 00:40 PT 12.30 SECONDS (12.1-14.9) 11/01/21 00:40 INR 0.89 (0.8-1.2) 11/01/21 00:40 Sodium 137 mmol/L (136-145) 11/01/21 00:40 Potassium 4.4 mmol/L (3.5-5.1) 11/01/21 00:40 Chloride 99 mmol/L (98-107) 11/01/21 00:40 Carbon Dioxide 29 mmol/L (22-29) 11/01/21 00:40 Anion Gap 13.4 (5-19) 11/01/21 00:40 BUN 20 mg/dL (8-23) 11/01/21 00:40 Creatinine 1.0 mg/dL (0.5-0.9) H 11/01/21 00:40 GFR Calculation 56.0 mL/min (90-130) L 11/01/21 00:40 Glucose 101 mg/dL (65-115) 11/01/21 00:40 Calculated Osmolality 287 mOsm/kg (285-295) 11/01/21 00:40 Calcium 10.0 mg/dL (8.5-10.5) 11/01/21 00:40 Magnesium 2.1 mg/dL (1.7-2.3) 11/01/21 00:40 Total Bilirubin 0.4 mg/dL (0.15-1.2) 11/01/21 00:40 AST 15 U/L (0-32) 11/01/21 00:40 ALT 18 U/L (0-33) 11/01/21 00:40 Alkaline Phosphatase 90 IU/L (35-105) 11/01/21 00:40 Troponin T Baseline 6 ng/L (0-10) 11/01/21 00:40 Total Protein 6.7 g/dL (6.6-8.7) 11/01/21 00:40 Albumin 4.5 g/dL (3.5-5.2) 11/01/21 00:40 Globulin 2.2 g/dL (1.3-4.6) 11/01/21 00:40 TSH 4.52 uIU/mL (0.27-4.20) H 11/01/21 00:40 Urine Color Yellow (Yellow) 11/01/21 02:00 Urine Appearance Clear (CLEAR) 11/01/21 02:00 Urine pH 5 (5-7) 11/01/21 02:00 Ur Specific [place] 1.015 (1.005-1.030) 11/01/21 02:00 Urine Protein Neg (Negative) 11/01/21 02:00 Urine Glucose (UA) Norm (Normal) 11/01/21 02:00 Urine Ketones Negative (Negative) 11/01/21 02:00 Urine Blood 2+ (Negative) H 11/01/21 02:00 Urine Nitrate Negative (Negative) 11/01/21 02:00 Urine Bilirubin Neg (Negative) 11/01/21 02:00 Urine Urobilinogen Norm mg/dL (Negative) 11/01/21 02:00 Ur Leukocyte Esterase Negative (Negative) 11/01/21 02:00 Urine RBC 0-4 /hpf (0-2) H 11/01/21 02:00 Urine WBC 0-4 /hpf (0-5) H 11/01/21 02:00 Ur Squamous Epith Cells 0-4 /hpf (0-5) H 11/01/21 02:00 Amorphous Sediment Not Reportable 11/01/21 02:00 Urine Bacteria Trace /hpf (NONE) 11/01/21 02:00 Salicylates < 0.3 mg/dL (3-10) L 11/01/21 00:40 Urine Opiates Screen Positive ng/mL (Negative) H 11/01/21 02:00 Acetaminophen < 5.0 ug/mL (10-30) L 11/01/21 00:40 Ur Barbiturates Screen Negative ng/mL (Negative) 11/01/21 02:00 Ur Phencyclidine Scrn Negative ng/mL (Negative) 11/01/21 02:00 Ur Amphetamines Screen Negative ng/mL (Negative) 11/01/21 02:00 U Benzodiazepines Scrn Negative ng/mL (Negative) 11/01/21 02:00 Urine Cocaine Screen Negative ng/mL (Negative) 11/01/21 02:00 U Marijuana (THC) Screen Negative ng/mL (Negative) 11/01/21 02:00 Ethyl Alcohol < 10 mg/dL (0-10) 11/01/21 00:40 EKG Data EKG 1: I personally reviewed and interpreted this EKG as follows: EKG interpretation date: 11/01/21 EKG interpretation time: 01:12 Interpretation: sinus jose hr [address] or t wave abnormalities qrs 94 qtc 379 Discharge Plan Discharge Patient Disposition: Home Clinical Impression: Altered mental status Qualifiers: Altered mental status type: unspecified Qualified Code(s): R41.82 - Altered mental status, unspecified Condition: Stable Prescriptions: No Action Zenpep 10,000-32,000 -42,000 unit capsule,delayed release(DR/EC) 1 cap PO TID Qty: 90 12RF Rx Instructions: administer with meals and/or snacks metoprolol tartrate 25 mg tablet 25 mg PO BID Qty: 60 0RF folic acid 1 mg tablet 1 mg PO DAILY Qty: 90 3RF (DME) Monoject Safety Syringes 3 mL 23 gauge x 1 syringe See Rx Instructions .Route Qty: 50 3RF Rx Instructions: As directed cyanocobalamin (vitamin B-12) 1,000 mcg/mL solution 1,000 mcg IM .weekly Qty: 10 6RF njlmlx-smbyrsdlryp-EeTr-NaHCO3 137 mcg-50 mcg- 0.9 % kit,spray suspension and spray 1 spray intranasal BID Qty: 1 5RF Rx Instructions: administer into each nostril hydrocodone-acetaminophen 7.5-325 mg tablet 1 tab PO TID PRN0RF meloxicam 7.5 mg tablet 7.5 mg PO DAILY Qty: 30 0RF (DME) BD Regular Bevel [place] 25 gauge x 5/8 needle See Rx Instructions .Route Qty: 100 0RF Rx Instructions: As directed for b-12 injection bupropion HCl 150 mg tablet sustained-release 12 hr 150 mg PO QAM Qty: 30 3RF levothyroxine 25 mcg tablet See Rx Instructions .ROUTE .COMPLEX Qty: 30 0RF Dose Instruction: TAKE 1 TABLET BY MOUTH EVERY DAY Rx Instructions: TAKE 1 TABLET BY MOUTH EVERY DAY trazodone 100 mg tablet See Rx Instructions .ROUTE .COMPLEX Qty: 45 0RF Dose Instruction: TAKE 1 & 1/2 TABLETS BY MOUTH AT BEDTIME Rx Instructions: TAKE 1 & 1/2 TABLETS BY MOUTH AT BEDTIME Discharge Orders: Discharge ED (Routine); Ordered 11/01/21 Ordered By: Quang Clinton Referrals: Demarco Huertas MD [Primary Care Provider] - 1-3 days Discharge Diet: Advance as tolerated Discharge Activity: Resume usual activity Patient Instructions: Altered Mental Status (ED) Coding Level of Care Code ED Community Sports Coordinator for Chg Fwd Exam Comprehensive
[2021-11-01 01:24] LABS: Basophils % 0.3 %; Eosinophils # 0.1 10^3/uL (0.0-0.8); Eosinophils % 1.8 %; Hematocrit 46.5 % (37.0-47.0); Hemoglobin 15.4 g/dL (11.5-15.3); Lymphocytes # 1.6 10^3/uL (0.8-4.8); Lymphocytes % 26.4 %; Mean Corpuscular HGB Conc 33.1 g/dL (30.0-36.0); Mean Corpuscular Hemoglobin 31.1 pg (28.0-34.0); Mean Corpuscular Volume 93.9 fl (81-99); Mean Platelet Volume 11.7 fL (7.4-10.4); Monocytes # 0.5 10^3/uL (0.2-0.9); Monocytes % 7.6 %; Neutrophils # 3.93 10^3/uL (1.8-7.7); Neutrophils % 63.6 %; Nucleated Red Blood Cells % 0 %; Platelet Count 190 10^3/cmm (130-400); Red Blood Count 4.95 10^6/uL (4.1-5.3); Red Cell Distribution Width 13.1 % (12.1-15.1); White Blood Count 6.2 10^3/uL (4.0-10.0)
[2021-11-01 01:37] LABS: INR 0.89 (0.8-1.2)
[2021-11-01 01:49] LABS: Troponin(5th) Baseline 6 ng/L (0-10)
[2021-11-01 01:55] LABS: Alanine Aminotransferase 18 U/L (0-33); Albumin Level 4.5 g/dL (3.5-5.2); Alkaline Phosphatase 90 IU/L (35-105); Aspartate Amino Transferase 15 U/L (0-32); Blood Urea Nitrogen 20 mg/dL (8-23); Carbon Dioxide 29 mmol/L (22-29); Chloride 99 mmol/L (98-107); Globulin 2.2 g/dL (1.3-4.6); Glucose 101 mg/dL (65-115); Magnesium 2.1 mg/dL (1.7-2.3); Osmolality Calculated 287 mOsm/kg (285-295); Sodium 137 mmol/L (136-145); Total Bilirubin 0.4 mg/dL (0.15-1.2); Total Protein 6.7 g/dL (6.6-8.7)
[2021-11-01 01:59] VITALS: BP 188/83; PULSE 57; RESP 16; O2SAT 98
[2021-11-01 01:59] LABS: Thyroid Stimulating Hormone 4.52 uIU/mL (0.27-4.20)
[2021-11-01 02:05] LABS: Acetaminophen < 5.0 ug/mL (10-30); Alcohol Level < 10 mg/dL (0-10); Salicylate < 0.3 mg/dL (3-10)
[2021-11-01 02:06] LABS: Anion Gap 13.4 (5-19); Potassium 4.4 mmol/L (3.5-5.1)
[2021-11-01 02:08] VITALS: O2SAT 98
[2021-11-01 02:30] VITALS: BP 150/80; PULSE 57; RESP 17; O2SAT 97
[2021-11-01 02:44] LABS: Add Urine Culture? No; Add Urine Microscopic? YES; Amphetamines Screen Urine Negative (Negative); Bacteria Urine TRACE /hpf; Barbiturates Screen Urine Negative (Negative); Benzodiazepines Screen Urine Negative (Negative); Bilirubin Urine Neg (Negative); Blood Urine 2+ (Negative); Cocaine Screen Urine Negative (Negative); Glucose Urine UA Norm (Normal); Ketones Urine Negative (Negative); Leukocyte Esterase Urine Negative (Negative); Nitrate Urine Negative (Negative); Opiate Screen Urine Positive (Negative); PCP Screen Urine Negative (Negative); Protein Urine Neg (Negative); RBC Urine 0-4 /hpf (0-2); Specific Gravity, Urine 1.015 (1.005-1.030); Squamous Epithelial Cell Urine 0-4 /hpf (0-5); THC Screen Urine Negative (Negative); Urine Appearance Clear (CLEAR); Urine Color Yellow (Yellow); Urobilinogen Urine Norm (Negative); WBC Urine 0-4 /hpf (0-5); pH Urine 5 (5-7)
[2021-11-01 03:00] VITALS: BP 103/99; PULSE 60; RESP 17; O2SAT 99
[2021-11-01 05:01] LABS: Glucose Point of Care 94 mg/dL (70-110)
== END 2021-11-01 03:00 | disposition home or self-care (01) ==
PROVIDERS: Emergency Provider Emergency Medicine; PCP Family Medicine Adult Medicine
DX: R41.82 Altered mental status, unspecified (principal); F17.210 Nicotine dependence, cigarettes, uncomplicated; I12.9 Hypertensive chronic kidney disease with stage 1 through stage 4 chronic kidney disease, or unspecified chronic kidney disease; N18.2 Chronic kidney disease, stage 2 (mild); E03.9 Hypothyroidism, unspecified
CPT/HCPCS: 36416; 70450; 71045; 80053; 80306; 80307; 81001; 82962; 83735; 84443; 84484; 85025; 85610; 93005; 99284

== ENCOUNTER → 2021-11-04 13:10 | Outpatient (BNVA) | payer MEDICAID, SELFPAY | PROVIDERS: PCP Family Medicine Adult Medicine; Visit Provider Otolaryngology | DX: J32.9 Chronic sinusitis, unspecified (principal); F17.210 Nicotine dependence, cigarettes, uncomplicated | CPT/HCPCS: 99213 ==

== ENCOUNTER → 2021-12-03 12:55 | Outpatient (BNVA) | payer MEDICAID, SELFPAY | PROVIDERS: PCP Family Medicine Adult Medicine; Visit Provider Otolaryngology | DX: J32.9 Chronic sinusitis, unspecified (principal); F17.210 Nicotine dependence, cigarettes, uncomplicated | CPT/HCPCS: 99213 ==

== ENCOUNTER → 2022-01-23 09:15 | Outpatient (BNVA) | payer MEDICAID, SELFPAY | PROVIDERS: PCP Family Medicine Adult Medicine; Visit Provider Surgery | DX: Z12.11 Encounter for screening for malignant neoplasm of colon (principal) | CPT/HCPCS: 99213 ==

== ENCOUNTER 2022-04-09 06:51 | Day surgery (SDC) | payer MEDICAID, SELFPAY ==
[2022-04-07 11:27] VITALS: BMI 24.9
[2022-04-09 07:22] VITALS: BP 110/93; PULSE 71; RESP 18; TEMP 36.8; O2SAT 97
--- NOTE | 2022-04-09 08:02 | P.ANESASSM_ITS ---
Pre-Anesthetic Assessment Height/Weight: Height 1.63 m Weight 65.771 kg Temp Pulse Resp BP Pulse Ox O2 Del Method 98.2 F 71 18 110/93 97 04/09/22 07:22 04/09/22 07:22 04/09/22 07:22 04/09/22 07:22 04/09/22 07:22 04/09/22 07:22 Preop Diagnosis: F/u colonoscopy Operation Date: 04/09/22 08:15 Proposed Procedures p Colonoscopy 20820,Z12.11(Not Applicable) - Gerry Rosenthal DO Familial anesthetic complications: None Was Beta [place] taken within 24 hours: Yes Was Clonidine taken within 24 hours: N/A Last intake: Intake Last Liquid Date 04/08/22 Last Liquid Time 19:30 Last Solid Date 04/07/22 Last Solid Time 19:30 Social Tobacco and No alcohol Exam alert, oriented x 3, clear to auscultation bilaterally and regular rate & rhythm Airway Submandibular: within normal limits Cervical ROM: within normal limits Mallampati: Class I Dentition: false Pulmonary Sleep Apnea (Uses CPAP) Denies hx of COPD/asthma Dysphonia CV/HEM Hypertension METS > 4 Folate defiency Kidney Stones Hepatic Exocrine pancreatic insufficiency GI Gastroesophageal Reflux Disease Metabolic Thyroid Disease Musc/[facility] Osteoarthritis/DJD Neuropsych Cerebrovascular Accident (8 years ago approx. residual balance and memory deficits ) Anesthetic Plan ASA status: 3 Anesthesia: Anesthesia Evaluation, General and MAC Other: I discussed with the patient risks, goals, and benefits of MAC and general anesthesia. We discussed spectrum of MAC anesthesia including conversion to gene ral as well as possibility of recall of intraoperative stimuli including discomfort/pain. Patient agrees to proceed with MAC. Risk of > 500 ml blood loss (7ml/kg in children): No Other Pertinent Information Edema of vocal cords (Loren's) Medications/Allergies Home Medications Medication Instructions Recorded Confirmed Last Taken Type metoprolol tartrate 25 mg tablet 25 mg PO BID #60 tabs 01/04/21 04/07/22 04/09/22 06:00 Rx syringe with needle, safety 3 mL #50 device 02/04/21 02/06/22 04/08/22 Rx 23 gauge x 1 (Monoject Safety Syringes) needle (disp) 25 gauge 25 gauge x #100 ea 02/06/21 02/06/22 04/08/22 Rx 5/8 (BD Regular Bevel [place]) hydrocodone 7.5 mg-acetaminophen 1 tab PO TID PRN Pain 10/16/21 04/07/22 04/08/22 History 325 mg tablet fluticasone propionate 50 2 spray intranasal DAILY 6 months 11/04/21 04/07/22 04/08/22 Rx mcg/actuation nasal #16 grams spray,suspension trazodone 100 mg tablet See Rx Instructions PO .qhs 90 01/16/22 04/07/22 04/08/22 Rx days #90 tabs folic acid 1 mg tablet 1 mg PO DAILY #90 tabs 02/24/22 04/07/22 04/08/22 Rx cyanocobalamin (vitamin B-12) 1,000 mcg IM .weekly #10 mL 04/01/22 04/07/22 04/07/22 Rx 1,000 mcg/mL injection solution dicyclomine 10 mg capsule 10 mg PO PRN 04/07/22 04/07/22 04/08/22 History prednisone 20 mg tablet 60 mg PO PRN allergies 04/07/22 04/07/22 04/08/22 History azelastine 137 mcg (0.1 %) nasal 2 spray intranasal BID 04/09/22 04/09/22 04/08/22 History spray aerosol bupropion HCl 150 mg tablet,12 hr 150 mg PO DAILY 04/09/22 04/09/22 04/08/22 History sustained-release levothyroxine 25 mcg tablet 25 mcg PO DAILY 04/09/22 04/09/22 04/08/22 History Allergies Allergy/AdvReac Type Severity Reaction Status Date / Time iodine Allergy LULA-Sergey Verified 02/06/22 09:31 Lip/Tongue/Throat Penicillins Allergy LULA-Sergey Verified 02/06/22 09:31 Lip/Tongue/Throat [facility] Anesthesia Medical History Acute sinusitis Allergic rhinitis due to allergen Anxiety and depression Celiac disease Chronic right hip pain CKD (chronic kidney disease) stage 2, GFR 60-89 ml/min Conversion disorder Dysphonia Folate deficiency GERD (gastroesophageal reflux disease) Groin strain Left anterior groin strain/tendonitis at attachment of anterior leg muscles Hypertension Hypothyroidism Lactose intolerance Nasal septal deformity SARAH (obstructive sleep apnea) Stroke 2012 Vitamin B12 deficiency (non anemic) Surgical History H/O colonoscopy 2016 H/O esophagogastroduodenoscopy 10/2013 H/O: hysterectomy History of carpal tunnel release History of ERCP History of right shoulder replacement Hx of appendectomy Hx of cholecystectomy Status post decompression of compartment syndrome right leg with several surgeries after horse accident Family History Other CAD (coronary artery disease) Diabetes Denies family history of Anesthesia complication Bleeding disorder Social History Smoking and tobacco status: current every day smoker Alcohol intake: never Household members: spouse Marital status: Current occupational status: disabled History of recent travel: No Data Anesthesia Cardiac Studies: No Data to Display
[2022-04-09] MEDS: sodium chloride 0.9% 1,000 ML 30 ML IV (08:06)
--- NOTE | 2022-04-09 08:33 | PM.HP ---
Providers/Chief Complaint Primary Care Provider: Demarco Huertas MD Chief Complaint: Colon cancer screening History of Present Illness Diane Mendoza is a 61 year old female here for colonoscopy Medications/Allergies Home Medications Medication Instructions Recorded Confirmed Last Taken Type metoprolol tartrate 25 mg tablet 25 mg PO BID #60 tabs 01/04/21 04/07/22 04/09/22 06:00 Rx syringe with needle, safety 3 mL #50 device 02/04/21 02/06/22 04/08/22 Rx 23 gauge x 1 (Monoject Safety Syringes) needle (disp) 25 gauge 25 gauge x #100 ea 02/06/21 02/06/22 04/08/22 Rx 5/8 (BD Regular Bevel [place]) hydrocodone 7.5 mg-acetaminophen 1 tab PO TID PRN Pain 10/16/21 04/07/22 04/08/22 History 325 mg tablet fluticasone propionate 50 2 spray intranasal DAILY 6 months 11/04/21 04/07/22 04/08/22 Rx mcg/actuation nasal #16 grams spray,suspension trazodone 100 mg tablet See Rx Instructions PO .qhs 90 01/16/22 04/07/22 04/08/22 Rx days #90 tabs folic acid 1 mg tablet 1 mg PO DAILY #90 tabs 02/24/22 04/07/22 04/08/22 Rx cyanocobalamin (vitamin B-12) 1,000 mcg IM .weekly #10 mL 04/01/22 04/07/22 04/07/22 Rx 1,000 mcg/mL injection solution dicyclomine 10 mg capsule 10 mg PO PRN 04/07/22 04/07/22 04/08/22 History prednisone 20 mg tablet 60 mg PO PRN allergies 04/07/22 04/07/22 04/08/22 History azelastine 137 mcg (0.1 %) nasal 2 spray intranasal BID 04/09/22 04/09/22 04/08/22 History spray aerosol bupropion HCl 150 mg tablet,12 hr 150 mg PO DAILY 04/09/22 04/09/22 04/08/22 History sustained-release levothyroxine 25 mcg tablet 25 mcg PO DAILY 04/09/22 04/09/22 04/08/22 History Allergies Allergy/AdvReac Type Severity Reaction Status Date / Time iodine Allergy ALGY-Swell Verified 02/06/22 09:31 Lip/Tongue/Throat Penicillins Allergy ALGY-Swell Verified 02/06/22 09:31 Lip/Tongue/Throat PFSH Acute PFSH: Medical History Acute sinusitis Allergic rhinitis due to allergen Anxiety and depression Celiac disease Chronic right hip pain CKD (chronic kidney disease) stage 2, GFR 60-89 ml/min Conversion disorder Dysphonia Folate deficiency GERD (gastroesophageal reflux disease) Groin strain Left anterior groin strain/tendonitis at attachment of anterior leg muscles Hypertension Hypothyroidism Lactose intolerance Nasal septal deformity SARAH (obstructive sleep apnea) Stroke 2012 Vitamin B12 deficiency (non anemic) Surgical History H/O colonoscopy 2016 H/O esophagogastroduodenoscopy 10/2013 H/O: hysterectomy History of carpal tunnel release History of ERCP History of right shoulder replacement Hx of appendectomy Hx of cholecystectomy Status post decompression of compartment syndrome right leg with several surgeries after horse accident Family History Other CAD (coronary artery disease) Diabetes Denies family history of Anesthesia complication Bleeding disorder Social History Smoking and tobacco status: current every day smoker Alcohol intake: never Household members: spouse Marital status: Current occupational status: disabled History of recent travel: No Vitals/I&O/Wt Last Vital Signs Temp 98.2 F 04/09/22 07:22 Pulse 71 04/09/22 07:22 Resp 18 04/09/22 07:22 BP 110/93 04/09/22 07:22 Pulse Ox 97 04/09/22 07:22 O2 Del Method 04/09/22 07:22 Weight last 48 hrs Weight 145 lb A&P Assessment and plan (1) Colon cancer screening: Status: Acute Plan Colonoscopy Attestations Medical Necessity Statement*: Home Coding Level of Care Code Acute Convention Services Manager for Chg Fwd Diagnoses Colon cancer screening Z12.11
[2022-04-09 08:58] VITALS: BP 119/74; PULSE 68; RESP 14; TEMP 36.3; O2SAT 98
[2022-04-09 09:09] VITALS: BP 112/70; PULSE 66; RESP 16; O2SAT 100
[2022-04-09 09:18] VITALS: BP 121/89; PULSE 72; RESP 18; O2SAT 100
--- NOTE | 2022-04-09 13:53 | ANE.PACU2 ---
Inpatient post-anesthesia follow up: Airway intact: Yes Vital signs: Temperature 97.3 F Pulse Rate 72 Respiratory Rate 18 Blood Pressure 121/89 Pulse Oximetry 100 Oxygen Delivery Me thod Room Air Oxygen Flow Rate Fraction of Inspir ed Oxygen Hydration adequate: Yes Nausea and vomiting: No Pain level: 1 Mental status: Baseline
== END 2022-04-09 09:25 | disposition home or self-care (01) ==
PROVIDERS: PCP Family Medicine Adult Medicine; Visit Provider Surgery
PROC: 0DJD8ZZ Inspection of Lower Intestinal Tract, Via Natural or Artificial Opening Endoscopic (ICD-10-PCS; CPT 45378; principal; 2022-04-09 08:15)
DX: Z12.11 Encounter for screening for malignant neoplasm of colon (principal); K52.9 Noninfective gastroenteritis and colitis, unspecified; K64.8 Other hemorrhoids; I12.9 Hypertensive chronic kidney disease with stage 1 through stage 4 chronic kidney disease, or unspecified chronic kidney disease; N18.2 Chronic kidney disease, stage 2 (mild); E03.9 Hypothyroidism, unspecified; G47.33 Obstructive sleep apnea (adult) (pediatric); F17.200 Nicotine dependence, unspecified, uncomplicated; Z86.73 Personal history of transient ischemic attack (TIA), and cerebral infarction without residual deficits
CPT/HCPCS: 45380; 88305; J2704; J7030

== ENCOUNTER → 2022-04-22 14:03 | Outpatient (BNVA) | payer MEDICAID, SELFPAY | PROVIDERS: PCP Family Medicine Adult Medicine; Visit Provider Surgery | DX: Z09 Encounter for follow-up examination after completed treatment for conditions other than malignant neoplasm (principal); K52.9 Noninfective gastroenteritis and colitis, unspecified | CPT/HCPCS: 99212 ==

== ENCOUNTER → 2022-05-30 16:35 | Outpatient (BNVA) | payer MEDICAID, SELFPAY | PROVIDERS: PCP Family Medicine Adult Medicine; Visit Provider Family Medicine Adult Medicine | DX: E03.9 Hypothyroidism, unspecified (principal); I11.0 Hypertensive heart disease with heart failure; N18.2 Chronic kidney disease, stage 2 (mild) | CPT/HCPCS: 80053; 84443; 85025 ==

== ENCOUNTER 2022-08-14 14:27 | Outpatient (CLI) | payer MEDICAID, SELFPAY ==
--- NOTE | 2022-08-14 14:32 | MM_ITS ---
WS: [id number] BILATERAL 3D TOMOSYNTHESIS DIGITAL SCREENING MAMMOGRAPHY WITH CAD CLINICAL INFORMATION: SCREENING HISTORY: Screening mammogram. No current complaints. COMPARISON: 2020 TECHNIQUE: Bilateral CC and MLO views. FINDINGS: Scattered fibroglandular densities bilaterally. No suspicious focal mass, asymmetry, calcifications, or architectural distortion. No evidence of malignancy. A few incidental punctate calcifications. MM/[place] [id number] IMPRESSION: BI-RADS: 2-Benign FOLLOW UP: 1 Year Follow-up Recommend return to annual screening mammography.
== END 2022-08-14 14:28 | disposition home or self-care (01) ==
LOC: RAD 14:29
PROVIDERS: PCP Family Medicine Adult Medicine; Visit Provider Family Medicine Adult Medicine
DX: Z12.31 Encounter for screening mammogram for malignant neoplasm of breast (principal)
CPT/HCPCS: 77063; 77067

== ENCOUNTER → 2022-09-09 14:39 | Outpatient (BNVA) | payer MEDICAID, SELFPAY | PROVIDERS: PCP Family Medicine Adult Medicine; Visit Provider Podiatrist Foot & Ankle Surgery | DX: G57.62 Lesion of plantar nerve, left lower limb (principal) | CPT/HCPCS: 64455; 73630; 99204 ==

== ENCOUNTER → 2022-09-19 13:33 | Outpatient (BNVA) | payer MEDICAID, SELFPAY | PROVIDERS: PCP Family Medicine Adult Medicine; Visit Provider Nurse Practitioner Family | DX: R39.9 Unspecified symptoms and signs involving the genitourinary system (principal) | CPT/HCPCS: 81000 ==

== ENCOUNTER → 2022-09-29 14:11 | Outpatient (BNVA) | payer MEDICAID, SELFPAY | PROVIDERS: PCP Family Medicine Adult Medicine; Visit Provider Podiatrist Foot & Ankle Surgery | DX: G57.62 Lesion of plantar nerve, left lower limb (principal) | CPT/HCPCS: 64455; J1100; J3301; J3490 ==

== ENCOUNTER → 2022-10-24 14:11 | Outpatient (BNVA) | payer MEDICAID, SELFPAY | PROVIDERS: PCP Family Medicine Adult Medicine; Visit Provider Registered Nurse Neonatal Intensive Care | DX: R39.9 Unspecified symptoms and signs involving the genitourinary system (principal) | CPT/HCPCS: 81000 ==

== ENCOUNTER → 2022-11-03 16:29 | Outpatient (BNVA) | payer MEDICAID, SELFPAY | PROVIDERS: PCP Family Medicine Adult Medicine; Visit Provider Nurse Practitioner | DX: R39.9 Unspecified symptoms and signs involving the genitourinary system (principal); N39.0 Urinary tract infection, site not specified | CPT/HCPCS: 81000; 87086 ==

== ENCOUNTER → 2022-11-04 14:32 | Outpatient (BNVA) | payer MEDICAID, SELFPAY | PROVIDERS: PCP Family Medicine Adult Medicine; Visit Provider Podiatrist Foot & Ankle Surgery | DX: G57.62 Lesion of plantar nerve, left lower limb (principal) | CPT/HCPCS: 99213 ==

== ENCOUNTER 2022-12-31 11:39 | Emergency (ER) | payer MEDICAID, SELFPAY ==
[2022-12-31 11:40] VITALS: BP 150/89; PULSE 67; RESP 17; TEMP 36.7; O2SAT 100; BMI 24.9
--- NOTE | 2022-12-31 11:44 | XRR_ITS ---
PROCEDURE INFORMATION: Exam: XR Chest Exam date and time: 12/31/2022 11:49 AM Age: 62 years old Clinical indication: Pain; Shortness of breath; Angina pectoris; Additional info: Chest pain TECHNIQUE: Imaging protocol: Radiologic exam of the chest. Views: 1 view. COMPARISON: CR XR chest 1V portable [id number] 11/01/2021 1:21 AM FINDINGS: Lungs: Unremarkable. No consolidation. Pleural spaces: Unremarkable. No pleural effusion. No pneumothorax. Heart/Mediastinum: Unremarkable. No cardiomegaly. Bones/joints: Metallic right shoulder arthroplasty in good position XR/XR chest 1V portable [id number] IMPRESSION: 1. No acute findings. 2. Metallic right shoulder arthroplasty in good position
--- NOTE | 2022-12-31 11:44 | ECG_ITS ---
[facility] Test Date: 2022-12-31 Pat Name: Diane Mendoza Department: Room: Gender: Female Adventure Therapist: : [id number] Requested By: Vikas Gasca Order Number: [id number] Alicia MD: Layton Boothe M.D. Measurements Intervals [place] Rate: 68 P: 42 IN: 137 QRS: 8 QRSD: 93 T: 57 QT: 362 QTc: 387 Interpretive Statements SINUS RHYTHM WITH OCCASIONAL ECTOPIC PREMATURE COMPLEXES SEPTAL MYOCARDIAL INFARCTION , OF INDETERMINATE AGE [40+ ms Q WAVE IN V1/V2] Compared to ECG 11/01/2021 01:12:17 Myocardial infarct finding now present Sinus bradycardia no longer present Electronically Signed On 12-31-2022 18:19:45 CDT by Layton Boothe M.D. [email or web address]
[2022-12-31 11:53] LABS: Basophils % 0.3 %; Eosinophils # 0.1 10^3/uL (0.0-0.8); Eosinophils % 0.7 %; Hematocrit 44.1 % (37.0-47.0); Hemoglobin 14.2 g/dL (11.5-15.3); Lymphocytes # 1.5 10^3/uL (0.8-4.8); Lymphocytes % 20.9 %; Mean Corpuscular HGB Conc 32.2 g/dL (30.0-36.0); Mean Corpuscular Hemoglobin 31.6 pg (28.0-34.0); Mean Corpuscular Volume 98.2 fl (81-99); Mean Platelet Volume 11.6 fL (7.4-10.4); Monocytes # 0.5 10^3/uL (0.2-0.9); Neutrophils # 5.13 10^3/uL (1.8-7.7); Neutrophils % 70.8 %; Nucleated Red Blood Cells % 0 %; Platelet Count 194 10^3/cmm (130-400); Red Blood Count 4.49 10^6/uL (4.1-5.3); Red Cell Distribution Width 13.5 % (12.1-15.1); White Blood Count 7.2 10^3/uL (4.0-10.0)
--- NOTE | 2022-12-31 11:57 | W.ED.CHESTPA ---
HPI - Chest Pain General: Chief Complaint: Chest Pain Stated Complaint: chest pains, sob Time Seen by Provider: 12/31/22 11:41 History of Present Illness: Presents to the ER with complaints of intermittent chest pain and palpitations for about 2 weeks. Patient says she been feeling short of breath today. Patient says there is nothing that she can do the to bring on or stop these palpitations only come on. They they they come on and last for about an hour or so and then go away on her own. Patient denies any nausea vomiting diaphoresis. Onset (ago): week(s) (2 weeks) Timing of current episode: episodic Prior episodes: No Relieving factors: nothing Exacerbating factors: nothing Associated symptoms: Reports dyspnea Treatment prior to arrival: none Review of Systems General: Reports: 10 or more systems reviewed and unremarkable except in HPI and below Resp: Reports: dyspnea PFSH ED PFSH: Medical History Allergic rhinitis due to allergen Anxiety and depression Chronic right hip pain CKD (chronic kidney disease) stage 2, GFR 60-89 ml/min Conversion disorder Dysphonia Folate deficiency GERD (gastroesophageal reflux disease) Hypertension Hypothyroidism Lactose intolerance SARAH (obstructive sleep apnea) Loren's edema of vocal folds Stroke 2013 Vitamin B12 deficiency (non anemic) Surgical History H/O colonoscopy 2016 H/O esophagogastroduodenoscopy 10/2013 H/O: hysterectomy History of carpal tunnel release History of ERCP History of right shoulder replacement Hx of appendectomy Hx of cholecystectomy Status post decompression of compartment syndrome right leg with several surgeries after horse accident Family History Other CAD (coronary artery disease) Diabetes Denies family history of Anesthesia complication Bleeding disorder Social History Smoking and tobacco status: current every day smoker cigarettes Alcohol intake: never Desire information about alcohol rehabilitation?: No Substance/Drug Use: never Desire information about substance/drug rehabilitation?: No Household members: spouse Marital status: Current occupational status: disabled Physical Exam Const: COMMON NORMALS: no acute distress, average body habitus, patient oriented x3, no limitations, healthy appearing, alert and well nourished HENMT: COMMON NORMALS: normocephalic, atraumatic, hearing grossly normal bilaterally, external ears normal, Normal external nose present and moist oral mucous membranes HEAD & SCALP: normocephalic and atraumatic NOSE: Normal external nose present EXTERNAL EAR: Yes external ears normal Eye: COMMON NORMALS: Equal, round and reactive pupils present, EOMs intact bilaterally, conjunctivae normal and no scleral icterus CONJUNCTIVA: Yes conjunctivae normal PUPIL: Yes Equal, round and reactive pupils present Neck/C-Spine: COMMON NORMALS: full ROM, no lymphadenopathy, supple, no meningeal signs, no JVD and Thyroid normal THYROID: Thyroid normal Lymph: LYMPHATIC: no lymphadenopathy noted Chest: COMMONS NORMALS: normal inspection of the chest and normal palpation of entire chest wall Resp: COMMON NORMALS: normal respiratory effort, No retractions, No use of accessory muscles and clear to auscultation bilaterally AUSCULTATION: clear to auscultation bilaterally Cardio: COMMON NORMALS: no JVD, regular rate, regular rhythm, S1 normal heart sound present, S2 normal heart sound present, No gallops present (Cardio), No clicks present (Cardio), No murmurs present (Cardio) and No rub (Cardio) RATE: regular rate RHYTHM: regular rhythm HEART SOUNDS: S1 normal heart sound present and S2 normal heart sound present GI: COMMON NORMALS: Normal to inspection, nondistended, normoactive bowel sounds present, Soft to palpation, non-tender, No hepatosplenomegaly present and no masses PALPATION: Yes Soft to palpation and Yes No hepatosplenomegaly present : COMMON NORMALS: Yes no CVA tenderness BLADDER/KIDNEY EXAM: Yes no CVA tenderness Back/Pelvis: COMMON NORMALS: no CVA tenderness Neuro: COMMON NORMALS: patient oriented x3 SENSORIUM/ORIENTATION: Yes alert MENINGEAL SIGNS: Yes no meningeal signs Course Vital Signs: Vital signs: Vital Signs Temperature 98.1 F 12/31/22 11:40 Pulse Rate 60 12/31/22 12:34 Respiratory Rate 16 12/31/22 12:34 Blood Pressure 127/92 12/31/22 12:34 Pulse Oximetry 98 12/31/22 12:34 Oxygen Delivery Me thod Room Air 12/31/22 12:34 MDM - Chest Pain Medical Decision Making Patient presents to the ER today with intermittent chest pain and palpitations going on for about 2 weeks. Patient says she started short of breath today. Patient is better after reevaluation and discussion of lab work. Lab work showed CBC was benign CMP was benign cardiac troponin was stable with no change other than the delta. EKGs showed no acute changes. Chest x-ray showed no acute findings. Is thought that this is noncardiac chest pain and shortness of breath. Patient be discharged home to follow-up with her primary care practitioner in the next 1 to 2 weeks as needed. Differential Diagnosis Unlikely acute massive pulmonary embolism, acute respiratory failure, acute myocardial infarction, cardiac arrest or sudden cardiac Medical Records I reviewed the patient's medical records. Lab Data I reviewed the patient's lab results. 12/31/22 11:45 12/31/22 11:45 Radiology Impressions Chest X-Ray 12/31/22 11:44 IMPRESSION: 1. No acute findings. 2. Metallic right shoulder arthroplasty in good position Laboratory Results WBC 7.2 10^3/uL (4.0-10.0) 12/31/22 11:45 RBC 4.49 10^6/uL (4.1-5.3) 12/31/22 11:45 Hgb 14.2 g/dL (11.5-15.3) 12/31/22 11:45 Hct 44.1 % (37.0-47.0) 12/31/22 11:45 MCV 98.2 fl (81-99) 12/31/22 11:45 MCH 31.6 pg (28.0-34.0) 12/31/22 11:45 MCHC 32.2 g/dL (30.0-36.0) 12/31/22 11:45 RDW 13.5 % (12.1-15.1) 12/31/22 11:45 Plt Count 194 10^3/cmm (130-400) 12/31/22 11:45 MPV 11.6 fL (7.4-10.4) H 12/31/22 11:45 Neut % (Auto) 70.8 % 12/31/22 11:45 Lymph % (Auto) 20.9 % 12/31/22 11:45 [place] % (Auto) 7.0 % 12/31/22 11:45 Eos % (Auto) 0.7 % 12/31/22 11:45 Baso % (Auto) 0.3 % 12/31/22 11:45 Neut # (Auto) 5.13 10^3/uL (1.8-7.7) 12/31/22 11:45 Lymph # (Auto) 1.5 10^3/uL (0.8-4.8) 12/31/22 11:45 [place] # (Auto) 0.5 10^3/uL (0.2-0.9) 12/31/22 11:45 Eos # (Auto) 0.1 10^3/uL (0.0-0.8) 12/31/22 11:45 Baso # (Auto) 0.0 10^3/uL (0.0-0.1) 12/31/22 11:45 Nucleated RBC % (auto) 0 % 12/31/22 11:45 Nucleated RBCs # 0.0 /100WBC 12/31/22 11:45 Sodium 139 mmol/L (136-145) 12/31/22 11:45 Potassium 4.1 mmol/L (3.5-5.1) 12/31/22 11:45 Chloride 102 mmol/L (98-107) 12/31/22 11:45 Carbon Dioxide 26 mmol/L (22-29) 12/31/22 11:45 Anion Gap 15.1 (5-19) 12/31/22 11:45 BUN 15 mg/dL (8-23) 12/31/22 11:45 Creatinine 1.0 mg/dL (0.5-0.9) H 12/31/22 11:45 GFR Calculation 55.8 mL/min (90-130) L 12/31/22 11:45 Glucose 89 mg/dL (65-115) 12/31/22 11:45 Calculated Osmolality 288 mOsm/kg (285-295) 12/31/22 11:45 Calcium 9.3 mg/dL (8.5-10.5) 12/31/22 11:45 Total Bilirubin 0.3 mg/dL (0.15-1.2) 12/31/22 11:45 AST 14 U/L (0-32) 12/31/22 11:45 ALT 10 U/L (0-33) 12/31/22 11:45 Alkaline Phosphatase 81 U/L (35-105) 12/31/22 11:45 Troponin T Baseline 6 ng/L (0-10) 12/31/22 11:45 Troponin T 120 Minute 6.00 ng/L (0-10) 12/31/22 13:23 Delta Troponin T 0 ABS# (0-10) 12/31/22 13:23 Total Protein 7.1 g/dL (6.6-8.7) 12/31/22 11:45 Albumin 4.4 g/dL (3.5-5.2) 12/31/22 11:45 Globulin 2.7 g/dL (1.3-4.6) 12/31/22 11:45 Urine Color Yellow (Yellow) 12/31/22 12:31 Urine Appearance Hazy (CLEAR) A 12/31/22 12:31 Urine pH 5 (5-7) 12/31/22 12:31 Ur Specific [place] 1.015 (1.005-1.030) 12/31/22 12:31 Urine Protein Neg (Negative) 12/31/22 12:31 Urine Glucose (UA) Norm (Normal) 12/31/22 12:31 Urine Ketones Negative (Negative) 12/31/22 12:31 Urine Blood 3+ (Negative) H 12/31/22 12:31 Urine Nitrate Negative (Negative) 12/31/22 12:31 Urine Bilirubin Neg (Negative) 12/31/22 12:31 Urine Urobilinogen Neg mg/dL (Negative) 12/31/22 12:31 Ur Leukocyte Esterase Negative (Negative) 12/31/22 12:31 Urine RBC 5-10 /hpf (0-2) H 12/31/22 12:31 Urine WBC 0-4 /hpf (0-5) H 12/31/22 12:31 Ur Squamous Epith Cells 25-40 /hpf (0-5) H 12/31/22 12:31 Amorphous Sediment Not Reportable 12/31/22 12:31 Urine Bacteria 1+ /hpf (NONE) H 12/31/22 12:31 Urine Mucus Trace /hpf 12/31/22 12:31 EKG Data EKG 1: I personally reviewed and interpreted this EKG as follows: EKG interpretation date: 12/31/22 EKG interpretation time: 11:44 Prior EKG tracings: not available for review Interpretation: EKG showed ventricular rate of 68 bpm, [place] interval 137, QRS duration 93, QTc of 380, sinus rhythm with occasional PVC, septal myocardial infarction of indeterminate age with Q waves in V1 V2 EKG 2: I personally reviewed and interpreted this EKG as follows: EKG interpretation date: 12/31/22 EKG interpretation time: 14:03 Prior EKG tracings: available for review Interpretation: EKG showed sinus bradycardia with ventricular rate of 55 bpm, AZ interval 146, QRS duration 102, QTc 382, no ST-T wave changes Discharge Plan Discharge Patient Disposition: Home Clinical Impression: Atypical chest pain Condition: Stable Prescriptions: No Action (DME) Monoject Safety Syringes 3 mL 23 gauge x 1 syringe See Rx Instructions .Route Qty: 50 3RF Rx Instructions: As directed hydrocodone-acetaminophen 7.5-325 mg tablet 1 tab PO TID PRN (Reason: Pain) (DME) BD Regular Bevel [place] 25 gauge x 5/8 needle See Rx Instructions .Route Qty: 100 0RF Rx Instructions: As directed for b-12 injection folic acid 1 mg tablet 1 mg PO DAILY Qty: 90 3RF trazodone 100 mg tablet See Rx Instructions PO .qhs 90 Days Qty: 90 1RF Rx Instructions: TAKE 1/2 or 1 TABLETS BY MOUTH AT BEDTIME fluticasone propionate 50 mcg/actuation spray,suspension 1 spray intranasal BID PRN (Reason: allergy symptoms) Qty: 16 11RF Rx Instructions: administer into each nostril metoprolol tartrate 25 mg tablet 25 mg PO BID Qty: 60 3RF pantoprazole 40 mg tablet,delayed release (DR/EC) 40 mg PO DAILY PRN (Reason: acid reflux) Qty: 30 5RF bupropion HCl 200 mg tablet sustained-release 12 hr 200 mg PO QAM Qty: 90 0RF cyanocobalamin (vitamin B-12) 1,000 mcg/mL solution 1,000 mcg IM Q7D Rx Instructions: On Thursday dicyclomine 10 mg capsule 10 mg PO PRN levothyroxine 25 mcg tablet 25 mcg PO DAILY Rx Instructions: TAKE 1 TABLET BY MOUTH EVERY DAY azelastine 137 mcg (0.1 %) aerosol,spray 2 spray intranasal BID Rx Instructions: USE 1 SPRAY IN EACH NOSTRIL TWO TIMES DAILY FOR ALLERGIES Discharge Orders: Discharge ED (Routine); Ordered 12/31/22 Ordered By: Vikas Gasca Referrals: Demarco Huertas MD [Primary Care Provider] - 1 week Patient Instructions: Chest Pain - Noncardiac Activity Restrictions/Additional Instructions: Please follow-up with your primary care practitioner in the next 1 to 2 weeks as needed. Please return to the ER if your signs and symptoms change or worsen. 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
[2022-12-31 12:10] LABS: Troponin(5th) Baseline 6 ng/L (0-10)
[2022-12-31 12:11] LABS: Alanine Aminotransferase 10 U/L (0-33); Albumin Level 4.4 g/dL (3.5-5.2); Alkaline Phosphatase 81 U/L (35-105); Anion Gap 15.1 (5-19); Aspartate Amino Transferase 14 U/L (0-32); Blood Urea Nitrogen 15 mg/dL (8-23); Calcium 9.3 mg/dL (8.5-10.5); Carbon Dioxide 26 mmol/L (22-29); Chloride 102 mmol/L (98-107); Globulin 2.7 g/dL (1.3-4.6); Glomerular Filtration Rate 55.8 mL/min (90-130); Glucose 89 mg/dL (65-115); Osmolality Calculated 288 mOsm/kg (285-295); Potassium 4.1 mmol/L (3.5-5.1); Sodium 139 mmol/L (136-145); Total Bilirubin 0.3 mg/dL (0.15-1.2); Total Protein 7.1 g/dL (6.6-8.7)
[2022-12-31 12:18] VITALS: BP 131/109; PULSE 65; O2SAT 98
[2022-12-31 12:20] LABS: Creatinine Clr Calc Pharmacy 53.0513
[2022-12-31 12:34] VITALS: BP 127/92; PULSE 60; RESP 16; O2SAT 98
[2022-12-31 12:58] LABS: Add Urine Microscopic? YES; Bilirubin Urine Neg (Negative); Blood Urine 3+ (Negative); Glucose Urine UA Norm (Normal); Ketones Urine Negative (Negative); Leukocyte Esterase Urine Negative (Negative); Nitrate Urine Negative (Negative); Protein Urine Neg (Negative); Specific Gravity, Urine 1.015 (1.005-1.030); Urine Appearance Hazy (CLEAR); Urine Color Yellow (Yellow); Urobilinogen Urine Neg (Negative); pH Urine 5 (5-7)
[2022-12-31 12:59] LABS: Squamous Epithelial Cell Urine 25-40 /hpf (0-5); WBC Urine 0-4 /hpf (0-5)
[2022-12-31 13:00] LABS: Add Urine Culture? No; Bacteria Urine 1+ /hpf; Mucus Urine TRACE /hpf
--- NOTE | 2022-12-31 13:44 | ECG_ITS ---
[facility] Test Date: 2022-12-31 Pat Name: Diane Mendoza Department: Room: Gender: Female [employer] Operator: : 1960 Requested By: Vikas Gasca Order Number: [id number] Alicia MD: Layton Boothe M.D. Measurements Intervals [place] Rate: 55 P: 34 NH: 146 QRS: 3 QRSD: 102 T: 40 QT: 392 QTc: 378 Interpretive Statements SINUS BRADYCARDIA Compared to ECG 12/31/2022 11:44:55 Sinus rhythm no longer present Myocardial infarct finding no longer present Electronically Signed On 12-31-2022 18:20:10 CDT by Layton Boothe M.D. [email or web address]
[2022-12-31 14:36] LABS: Troponin 5 2HR Delta 0 ABS# (0-10)
[2022-12-31 14:40] VITALS: BP 119/69; RESP 18
== END 2022-12-31 14:48 | disposition home or self-care (01) ==
PROVIDERS: Emergency Provider Emergency Medicine; PCP Family Medicine Adult Medicine
DX: R07.89 Other chest pain (principal); F17.210 Nicotine dependence, cigarettes, uncomplicated; I12.9 Hypertensive chronic kidney disease with stage 1 through stage 4 chronic kidney disease, or unspecified chronic kidney disease; N18.2 Chronic kidney disease, stage 2 (mild); Z86.73 Personal history of transient ischemic attack (TIA), and cerebral infarction without residual deficits
CPT/HCPCS: 36415; 71045; 80053; 81001; 84484; 85025; 93005; 99285

== ENCOUNTER → 2023-01-13 09:17 | Outpatient (BNVA) | payer MEDICAID, SELFPAY | PROVIDERS: PCP Family Medicine Adult Medicine; Visit Provider Nurse Practitioner Family | DX: R39.9 Unspecified symptoms and signs involving the genitourinary system (principal) | CPT/HCPCS: 81000; 87077; 87086; 87184 ==

== ENCOUNTER → 2023-01-30 13:09 | Outpatient (BNVA) | payer MEDICAID, SELFPAY | PROVIDERS: PCP Family Medicine Adult Medicine; Visit Provider Family Medicine Adult Medicine | DX: R39.9 Unspecified symptoms and signs involving the genitourinary system (principal) | CPT/HCPCS: 81000 ==

== ENCOUNTER → 2023-02-23 10:39 | Outpatient (BNVA) | payer MEDICAID, SELFPAY | PROVIDERS: PCP Family Medicine Adult Medicine; Visit Provider Internal Medicine Cardiovascular Disease | DX: I10 Essential (primary) hypertension (principal); R00.2 Palpitations | CPT/HCPCS: 93270 ==

== ENCOUNTER → 2023-03-26 12:24 | Outpatient (BNVA) | payer MEDICAID, SELFPAY | PROVIDERS: PCP Family Medicine Adult Medicine; Visit Provider Internal Medicine | DX: R07.9 Chest pain, unspecified (principal); I10 Essential (primary) hypertension; R00.2 Palpitations; F17.210 Nicotine dependence, cigarettes, uncomplicated | CPT/HCPCS: 93005; 99204 ==

== ENCOUNTER 2023-04-10 11:45 | Outpatient (CLI) | payer MEDICAID, SELFPAY ==
--- NOTE | 2023-04-10 12:30 | USCV_ITS ---
Diane Mendoza Age: 62 Gender: F : 1960 Exam Date: 04/10/2023 12:10 Ordering Phys: Layton Boothe M.D ([email or web address]) Technologist: [place] [facility] [place]: [place] Risk Factors: Previous Vascular Surgery: Right Brachial BP: / Left Brachial BP: / Right Left Velocity (cm/s) Spectral Plaque Velocity (cm/s) Spectral Plaque Syst/Diast Broadening Syst/Diast Broadening 53.90/ 13.60 Prox CCA 50.90 / 11.90 52.80/ 16.30 Mid CCA 60.30 / 17.10 56.20/ 18.30 Distal CCA 58.10 / 21.60 28.30/ 12.30 Prox ICA 30.90 / 13.40 51.60/ 20.90 Mid ICA 54.90 / 23.20 55.05/ 23.10 Distal ICA 60.20 / 24.50 32.40 ECA 45.20 1.03 ICA/CCA 1.00 Antegrade Vertebral Antegrade 38.50/ 13.10 cm/s 49.60/ 19.70 cm/s Bi Subclavian Bi 74.90 76.90 FINDINGS Comparison: none available. Waveforms are normal. No significant elevation of systolic or diastolic velocities. No significant amount of calcified plaque or intimal thickening identified. CONCLUSIONS Normal carotid doppler ultrasound. Dr. Anabel Bolanos DO (Electronically Signed) Final Date: 13 April 2023 07:48 S
--- NOTE | 2023-04-10 13:00 | USCV_ITS ---
Diane Mendoza Age: 62 Gender: F : 1960 Exam Date: 04/10/2023 12:34 Ordering Phys: Layton Boothe M.D ([email or web address]) Technologist: CT Exam Location: [facility] – [place] Indication: sob BP: 105 / 74 HR: 56 Rhythm: Sinus Technical Quality: Adequate MEASUREMENTS (Male / Female) Normal Values 2D ECHO LV Chamber Size 4.6 cm RV Chamber Size 3.4 cm LVOT Diameter 2.0 cm LV Ejection Fraction MOD 2C 73.7 % LV Ejection Fraction 2C AL 73.7 % LA Diameter 4.0 cm LA Width 2.9 cm LA Height 4.8 cm RA Width 2.9 cm RA Height 4.4 cm Aorta at Sinotubular Diameter 3.3 cm IVC Diameter 1.5 cm M-MODE Aortic Annulus Diameter 3.4 cm LA Ao Ratio MM 1.3 MV E Point Septal Separation 0.7 cm DOPPLER AV Peak Velocity 136.0 cm/s LVOT Peak Velocity 74.0 cm/s AV Area Cont Eq vti 2.0 cm squared AV Area Cont Eq pk 1.8 cm squared MV Area PHT 2.7 cm squared Mitral E to A Ratio 1.3 MV E' Velocity 33.5 cm/s Mitral E to MV E' Ratio 5.0 Mitral E to LV E' Lateral Ratio 5.2 Mitral E to LV E' Septal Ratio 4.9 TR Peak Velocity 181.7 cm/s TR Peak Gradient 13.2 mmHg TV Peak E Velocity 69.0 cm/s Right Atrial Pressure 3.0 mmHg Pulmonary Artery Systolic Pressu 16.2 mmHg PV Peak Velocity 90.0 cm/s FINDINGS Left Ventricle Left ventricle is normal in size. LV systolic function is normal with EF of 55-60 %. No regional wall motion abnormalities are seen. Right Ventricle Normal in size and function Right Atrium Normal in size Left Atrium Dilated Mitral Valve Structurally normal mitral valve. Trace mitral regurgitation Aortic Valve Aortic valve is thickened. No stenosis stenosis or regurgitation seen. Tricuspid Valve Trace tricuspid regurgitation. Insufficient TR jet to evaluate RVSP Pulmonic Valve Not well visualized. Trace pulmonic regurgitation Pericardium Normal Aorta Normal in size IVC Appears to be normal CONCLUSIONS LV systolic function is normal with EF of 55 to 60%. Left atrial dilation Trace mitral regurgitation Trace tricuspid regurgitation Trace pulmonic regurgitation Compared to prior echocardiogram from 2017, no significant changes are seen Layton Boothe MD (Electronically Signed) Final Date: 18 April 2023 20:47 S
== END 2023-04-10 11:46 | disposition home or self-care (01) ==
LOC: RAD 11:47
PROVIDERS: PCP Family Medicine Adult Medicine; Visit Provider Internal Medicine
DX: I65.23 Occlusion and stenosis of bilateral carotid arteries (principal); R06.02 Shortness of breath; R07.9 Chest pain, unspecified
CPT/HCPCS: 93306; 93880

== ENCOUNTER → 2023-05-27 11:44 | Outpatient (BNVA) | payer MEDICARE, MEDICAID, SELFPAY | PROVIDERS: PCP Family Medicine Adult Medicine; Visit Provider Family Medicine Adult Medicine | DX: E03.9 Hypothyroidism, unspecified (principal); R39.9 Unspecified symptoms and signs involving the genitourinary system | CPT/HCPCS: 81000; 84443 ==

== ENCOUNTER 2023-08-19 13:31 | Outpatient (CLI) | payer MEDICARE, MEDICAID, SELFPAY ==
--- NOTE | 2023-08-19 13:53 | MM_ITS ---
WS: [id number] BILATERAL 3D TOMOSYNTHESIS DIGITAL SCREENING MAMMOGRAPHY WITH CAD CLINICAL INFORMATION: SCREENING HISTORY: Screening mammogram. No current complaints. COMPARISON: 2022 TECHNIQUE: Bilateral CC and MLO views. FINDINGS: Scattered fibroglandular densities bilaterally. No suspicious focal mass, asymmetry, calcifications, or architectural distortion. No evidence of malignancy. A few tiny incidental punctate calcifications . IMPRESSION: MM/[place] [id number] BI-RADS: 2-Benign FOLLOW UP: 1 Year Follow-up Recommend return to annual screening mammography.
== END 2023-08-19 13:32 | disposition home or self-care (01) ==
LOC: RAD 13:31
PROVIDERS: PCP Family Medicine Adult Medicine; Visit Provider Family Medicine Adult Medicine
DX: Z12.31 Encounter for screening mammogram for malignant neoplasm of breast (principal); R92.323 Mammographic fibroglandular density, bilateral breasts
CPT/HCPCS: 77063; 77067

== ENCOUNTER → 2023-09-21 10:23 | Outpatient (BNVA) | payer MEDICARE, MEDICAID, SELFPAY | PROVIDERS: PCP Family Medicine Adult Medicine; Visit Provider Podiatrist Foot & Ankle Surgery | DX: G57.62 Lesion of plantar nerve, left lower limb (principal) | CPT/HCPCS: 64455; J1100; J3301; J3490 ==

== ENCOUNTER → 2023-11-03 13:11 | Outpatient (BNVA) | payer MEDICARE, MEDICAID, SELFPAY | PROVIDERS: PCP Family Medicine Adult Medicine; Visit Provider Podiatrist Foot & Ankle Surgery | DX: G57.62 Lesion of plantar nerve, left lower limb (principal) | CPT/HCPCS: 64455; J1100; J3301; J3490 ==

== ENCOUNTER → 2023-11-19 13:37 | Outpatient (BNVA) | payer MEDICARE, MEDICAID, SELFPAY | PROVIDERS: PCP Family Medicine Adult Medicine; Visit Provider Otolaryngology | DX: J32.9 Chronic sinusitis, unspecified (principal); J32.0 Chronic maxillary sinusitis; J30.5 Allergic rhinitis due to food; F17.210 Nicotine dependence, cigarettes, uncomplicated | CPT/HCPCS: 99213; 99214 ==

== ENCOUNTER 2023-12-15 07:40 | Outpatient (CLI) | payer MEDICARE, MEDICAID, SELFPAY ==
--- NOTE | 2023-12-15 08:00 | CT_ITS ---
WS: [id number] CT PARANASAL SINUSES HISTORY: Chronic Sinusitis TECHNIQUE: Contiguous 2.0 mm axial images obtained through the sinuses. Images are reconstructed in s agittal and coronal planes. All CT scans at [facility] use at least one of these dose optimiz ation techniques: automated exposure control; mA and/or kV adjustment per patient size (includes targ eted exams where dose is matched to clinical indication); or iterative reconstruction. DLP: 354.68 mGy.cm COMPARISON: 10/31/2021 Status post maxillary antrostomies and ethmoidectomies. Frontal sinuses: New soft tissue thickening in the RIGHT frontal sinus. Frontoethmoid recesses are pa tent. Sphenoid sinus: There are a few small septations and mild mucoperiosteal thickening in frothy secreti ons in the LEFT sphenoid sinus. Mild progression since the prior CT. No air-fluid levels. Ethmoid sinuses: As visualized on prior studies unchanged. No significant disease. Maxillary sinus: Mild mucoperiosteal thickening. No air-fluid levels. Very similar appearance of the mucoperiosteal thickening since the prior studies. Ostiomeatal unit: Widely patent from prior surgery. No obstruction. Very minimal curvature of the midline nasal septum. Orbits and globes in the visualized skull base are negative. CT/CT sinus wo con* [id number] IMPRESSION: 1. Status post prior maxillary antrostomies and ethmoidectomies. 2. No air-fluid levels. 3. Very minimal new soft tissue thickening in the RIGHT frontal sinus. 4. Mild progression of frothy secretions in mucoperiosteal disease in the LEFT sphenoid sinus. 5. No obstruction of the ostiomeatal units.
== END 2023-12-15 07:41 | disposition home or self-care (01) ==
LOC: RAD 07:40
PROVIDERS: PCP Family Medicine Adult Medicine; Visit Provider Otolaryngology
DX: J32.9 Chronic sinusitis, unspecified (principal); Z90.89 Acquired absence of other organs; J34.89 Other specified disorders of nose and nasal sinuses
CPT/HCPCS: 70486

== ENCOUNTER 2023-12-26 13:47 | Emergency (ER) | payer MEDICARE, MEDICAID, SELFPAY ==
[2023-12-26 14:15] VITALS: BP 124/79; PULSE 85; RESP 17; TEMP 37.1; O2SAT 100
--- NOTE | 2023-12-26 14:25 | ED_ITS ---
Documented by User: JANNY Whitaker 12/26/23 17:52 HPI - Abdominal Pain 2 General: Chief Complaint: Abdominal Pain Stated Complaint: right side Abd pain Time Seen by Provider: 12/26/23 14:19 Source: patient Mode of arrival: ambulatory Limitations: no limitations History of Present Illness: Patient is a 63-year-old female who presents to the emergency department complaining of epigastric pain onset today. Patient does note a history of recurrent pancreatitis, was hospitalized 4 years ago for this. She notes a history of a stent placed in her pancreatic duct, and also reports history of cholecystectomy. She notes the pain radiates through to her back, has not been relieved with narcotic pain medication. She does state it is worse with eating, and this was what prompted onset of pain today. She is also noting some nausea and diarrhea, stating she has not vomited. She does not report any fever, chest pain, breathing difficulties, blood or pain with urination, or other symptoms at this time. Pain is sharp/stabbing in quality, has been constant since onset. No recent illness, history of ulcers, or other pertinent historical factors. However, she does note she is stage III chronic kidney disease and has no history of cirrhosis. MD elicited complaint: abdominal pain Pertinent past history: other (Pancreatitis) Onset (ago): hour(s) Pain Consistency: constant Location: Epigastric Radiation: RUQ and back Exacerbating factors: eating Relieving factors: nothing Context: history of similar episodes Associated Symptoms: Reports diarrhea and nausea; Denies bloating, change in stool character, chills, constipation, dysuria, fever(s), hematochezia and vomiting Review of Systems 2 General: Reports: 10 or more systems reviewed and unremarkable except in HPI and below Const: Denies: fever(s), chills, change in appetite, change in weight or diaphoresis ENMT: Denies: throat pain or hoarseness Card: Denies: chest pain, palpitations or lightheadedness Resp: Denies: dyspnea, productive cough or wheezing GI: Reports: abdominal pain, nausea and diarrhea; Denies: vomiting, constipation, bloating, change in stool character or hematochezia : Denies: flank pain, difficulty voiding, dysuria, urinary frequency or urinary urgency Musc: Reports: back pain; Denies: neck pain Skin/Breast: Denies: rash or new lesions Neuro: Denies: headache(s) or dizziness PFSH ED 2 PFSH: Medical History Postural dizziness with near syncope Acute bacterial sinusitis Recurrent UTI (urinary tract infection) Bradycardia with 51-60 beats per minute Hematuria Stroke 2012 Chronic right hip pain CKD (chronic kidney disease) stage 2, GFR 60-89 ml/min Allergic rhinitis due to allergen Lactose intolerance Exocrine pancreatic insufficiency Hypothyroidism Hypertension SARAH (obstructive sleep apnea) Anxiety and depression GERD (gastroesophageal reflux disease) Surgical History History of right shoulder replacement History of ERCP Status post decompression of compartment syndrome right leg with several surgeries after horse accident Hx of cholecystectomy History of carpal tunnel release H/O esophagogastroduodenoscopy 10/2013 H/O colonoscopy 2016 Hx of appendectomy H/O: hysterectomy Family History Other CAD (coronary artery disease) Diabetes Denies family history of Anesthesia complication Bleeding disorder Social History Smoking and tobacco/nicotine status: current every day tobacco/nicotine user (1 pack) cigarettes Alcohol intake: never Substance/Drug Use: never Household members: spouse Marital status: Current occupational status: disabled Physical Exam 2 Const: COMMON NORMALS: no acute distress, average body habitus, patient oriented x3, no limitations, healthy appearing, alert and well nourished G ENERAL APPEARANCE: cooperative and comfortable ORIENTATION/CONSCIOUSNESS: Yes awake HENMT: COMMON NORMALS: normocephalic, atraumatic, hearing grossly normal bilaterally, external ears normal, Normal external nose present, Normal nasal mucous membranes and turbinates present and moist oral mucous membranes HEAD & SCALP: normocephalic and atraumatic NOSE: Normal external nose present and Normal nasal mucous membranes and turbinates present EXTERNAL EAR: Yes external ears normal Eye: COMMON NORMALS: Equal, round and reactive pupils present, EOMs intact bilaterally, conjunctivae normal and normal visual horner by confrontation C ONJUNCTIVA: Yes conjunctivae normal PUPIL: Yes Equal, round and reactive pupils present Neck/C-Spine: COMMON NORMALS: full ROM, supple, no meningeal signs and no JVD Resp: COMMON NORMALS: normal respiratory effort, No retractions, No use of accessory muscles and clear to auscultation bilaterally AUSCULTATION: clear to auscultation bilaterally, no crackles, no rales, no rhonchi and no wheezes Cardio: COMMON NORMALS: no JVD, regular rate, regular rhythm, S1 normal heart sound present, S2 normal heart sound present, No gallops present (Cardio), No clicks present (Cardio), No murmurs present (Cardio), No rub (Cardio) and Peripheral pulses 2+ throughout RATE: regular rate RHYTHM: regular rhythm HEART SOUNDS: S1 normal heart sound present and S2 normal heart sound present PERIPHERAL PULSES: Peripheral pulses 2+ throughout GI: COMMON NORMALS: Normal to inspection, nondistended, normoactive bowel sounds present, Soft to palpation, No hepatosplenomegaly present and no masses AUSCULTATION: Yes normoactive bowel sounds PALPATION: Yes Soft to palpation, Yes Tenderness to palpation present (GI) (Diffuse, worse in the epigastric/right upper quadrant region), No Guarding due to palpation present (GI), No Rigid due to palpation and Yes No hepatosplenomegaly present RECTAL EXAM: deferred : BLADDER/KIDNEY EXAM: Yes CVA tenderness on the right Back/Pelvis: GENERAL BACK: Yes CVA tenderness Extremity: COMMON NORMALS: normal to inspection and full ROM Neuro: COMMON NORMALS: patient oriented x3, moves all extremities, no focal motor deficits and no sensory deficits noted SENSORIUM/ORIENTATION: Yes alert MENINGEAL SIGNS: Yes no meningeal signs Psych: COMMON NORMALS: mental status grossly normal, cooperative and speech normal SPEECH: Yes normal speech Skin: COMMON NORMALS: no rashes or lesions noted GENERAL SKIN EXAM: no rashes or lesions noted Course 2 Vital Signs: Vital signs: Vital Signs Temperature 98.7 F 12/26/23 14:15 Pulse Rate 85 12/26/23 14:15 Respiratory Rate 17 12/26/23 17:01 Blood Pressure 124/79 12/26/23 14:15 Pulse Oximetry 97 12/26/23 17:01 Oxygen Delivery Me thod Room Air 12/26/23 14:15 MDM - Abdominal Pain Medical Decision Making Patient presented with epigastric abdominal pain, stating she thought it was her pancreatitis flaring up. On arrival vitals unremarkable and condition has remained stable throughout ED course. Examination did reveal some reproducible tenderness to palpation about the epigastrium as well as to the right CVA area, which did appear to follow a rib margin. All of her laboratory workup was negative, including a negative lipase. CT of the abdomen pelvis did not reveal any acute abnormalities. Her EKG was unremarkable. She does have history of cholecystectomy, and due to her negative workup I now feel that she is dealing with musculoskeletal pain, possibly a costochondritis as it did follow the the rib margin on the right side. Will treat with steroids and muscle relaxers, she will continue to take her hydrocodone at home. Reasons to return discussed and she will follow-up with primary care. Medical Records I reviewed the patient's medical records. Lab Data I reviewed the patient's lab results. 12/26/23 13:30 12/26/23 13:30 Labs/Radiology: Radiology Impressions Abdomen/Pelvis CT 12/26/23 15:18 IMPRESSION: 1. No evidence of acute abnormality in the abdomen or pelvis. Laboratory Results WBC 5.78 10^3/uL (3.29-11.43) 12/26/23 13:30 RBC 4.21 10^6/uL (3.85-5.65) 12/26/23 13:30 Hgb 13.50 g/dL (11.27-16.99) 12/26/23 13:30 Hct 41.3 % (36-47) 12/26/23 13:30 MCV 98.1 fl (85-98) H 12/26/23 13:30 MCH 32.1 pg (27-33) 12/26/23 13:30 MCHC 32.7 g/dL (30-55) 12/26/23 13:30 RDW 13.2 % (12.1-15.1) 12/26/23 13:30 Plt Count 212 10^3/cmm (157-399) 12/26/23 13:30 MPV 11.2 fL (7.4-10.4) H 12/26/23 13:30 Neut % (Auto) 72.3 % 12/26/23 13:30 Lymph % (Auto) 19.9 % 12/26/23 13:30 Atkinson % (Auto) 6.2 % 12/26/23 13:30 Eos % (Auto) 1.2 % 12/26/23 13:30 Baso % (Auto) 0.2 % 12/26/23 13:30 Neut # (Auto) 4.18 10^3/uL (1.8-7.7) 12/26/23 13:30 Lymph # (Auto) 1.2 10^3/uL (0.8-4.8) 12/26/23 13:30 [place] # (Auto) 0.4 10^3/uL (0.2-0.9) 12/26/23 13:30 Eos # (Auto) 0.1 10^3/uL (0.0-0.8) 12/26/23 13:30 Baso # (Auto) 0.0 10^3/uL (0.0-0.1) 12/26/23 13:30 Nucleated RBC % (auto) 0 % 12/26/23 13:30 Nucleated RBCs # 0.0 /100WBC 12/26/23 13:30 Sodium 141 mmol/L (136-145) 12/26/23 13:30 Potassium 3.9 mmol/L (3.5-5.1) 12/26/23 13:30 Chloride 102 mmol/L (98-107) 12/26/23 13:30 Carbon Dioxide 28 mmol/L (22-29) 12/26/23 13:30 Anion Gap 14.9 (5-19) 12/26/23 13:30 BUN 13 mg/dL (8-23) 12/26/23 13:30 Creatinine 1.0 mg/dL (0.5-0.9) H 12/26/23 13:30 GFR Calculation 55.6 mL/min (90-130) L 12/26/23 13:30 Glucose 130 mg/dL (65-115) H 12/26/23 13:30 Calculated Osmolality 294 mOsm/kg (285-295) 12/26/23 13:30 Calcium 9.7 mg/dL (8.5-10.5) 12/26/23 13:30 Total Bilirubin 0.3 mg/dL (0.15-1.2) 12/26/23 13:30 AST 5 U/L (0-32) 12/26/23 13:30 ALT < 5 U/L (0-33) 12/26/23 13:30 Alkaline Phosphatase 89 U/L (35-105) 12/26/23 13:30 Total Protein 7.4 g/dL (6.6-8.7) 12/26/23 13:30 Albumin 4.3 g/dL (3.5-5.2) 12/26/23 13:30 Globulin 3.1 g/dL (1.3-4.6) 12/26/23 13:30 Lipase 37 U/L (13-60) 12/26/23 13:30 Urine Color Yellow (Yellow) 12/26/23 15:07 Urine Appearance Clear (CLEAR) 12/26/23 15:07 Urine pH 5 (5-7) 12/26/23 15:07 Ur Specific [place] 1.015 (1.005-1.030) 12/26/23 15:07 Urine Protein Neg (Negative) 12/26/23 15:07 Urine Glucose (UA) Norm (Normal) 12/26/23 15:07 Urine Ketones Negative (Negative) 12/26/23 15:07 Urine Blood 3+ (Negative) H 12/26/23 15:07 Urine Nitrate Negative (Negative) 12/26/23 15:07 Urine Bilirubin Neg (Negative) 12/26/23 15:07 Urine Urobilinogen Norm mg/dL (Negative) 12/26/23 15:07 Ur Leukocyte Esterase Negative (Negative) 12/26/23 15:07 Urine RBC 0-4 /hpf (0-2) H 12/26/23 15:07 Urine WBC 0-4 /hpf (0-5) H 12/26/23 15:07 Ur Squamous Epith Cells 0-4 /hpf (0-5) H 12/26/23 15:07 Amorphous Sediment Not Reportable 12/26/23 15:07 Urine Bacteria Trace /hpf (NONE) 12/26/23 15:07 All radiology interpretation(s) finalized by discharge Discharge Plan Discharge Patient Disposition: Home Clinical Impression: Acute costochondritis Condition: Stable Prescriptions: New prednisone 20 mg tablet 60 mg PO ONCE 5 Days Qty: 15 0RF methocarbamol 750 mg tablet 750 mg PO Q8H 5 Days Qty: 15 0RF No Action (DME) Monoject Safety Syringes 3 mL 23 gauge x 1 syringe See Rx Instructions .Route Qty: 50 3RF Rx Instructions: As directed hydrocodone-acetaminophen 7.5-325 mg tablet 1 tab PO TID PRN (Reason: Pain) guaifenesin 600 mg tablet extended release 12hr 600 mg PO BID Qty: 20 0RF sulfamethoxazole-trimethoprim 800-160 mg tablet 1 tab PO BID Qty: 14 0RF prednisone 20 mg tablet 60 mg PO DAILY Qty: 15 0RF clarithromycin 500 mg tablet 500 mg PO BID 10 Days Qty: 20 0RF (DME) BD Regular [place]vel [place] 25 gauge x 5/8 needle See Rx Instructions .Route Qty: 100 0RF Rx Instructions: As directed for b-12 injection folic acid 1 mg tablet 1 mg PO DAILY Qty: 90 3RF azelastine 137 mcg (0.1 %) aerosol,spray 2 spray intranasal BID Qty: 30 4RF Rx Instructions: USE 1 SPRAY IN EACH NOSTRIL TWO TIMES DAILY FOR ALLERGIES cyanocobalamin (vitamin B-12) 1,000 mcg/mL solution 1,000 mcg IM Q7D Qty: 10 6RF Rx Instructions: On Thursday metoprolol tartrate 25 mg tablet 25 mg PO BID Qty: 60 3RF trazodone 100 mg tablet See Rx Instructions .ROUTE .COMPLEX Qty: 90 1RF Dose Instruction: take 1/2 to 1 tablet BY MOUTH AT BEDTIME Rx Instructions: take 1/2 to 1 tablet BY MOUTH AT BEDTIME bupropion HCl 200 mg tablet sustained-release 12 hr 200 mg PO QAM Qty: 90 0RF pantoprazole 40 mg tablet,delayed release (DR/EC) 40 mg PO DAILY PRN (Reason: acid reflux) Qty: 30 5RF levothyroxine 25 mcg tablet See Rx Instructions .ROUTE .COMPLEX Qty: 30 2RF Dose Instruction: TAKE 1 TABLET BY MOUTH EVERY DAY Rx Instructions: TAKE 1 TABLET BY MOUTH EVERY DAY fluticasone propionate 50 mcg/actuation spray,suspension See Rx Instructions .ROUTE .COMPLEX Qty: 16 11RF Dose Instruction: USE 1 SPRAY IN EACH NOSTRIL TWICE DAILY NEEDED FOR allergy symptoms Rx Instructions: USE 1 SPRAY IN EACH NOSTRIL TWICE DAILY NEEDED FOR allergy symptoms dicyclomine 10 mg capsule 10 mg PO PRN Discharge Orders: Discharge ED (Routine); Ordered 12/26/23 Ordered By: Nikko Rose Referrals: Demarco Huertas MD [Primary Care Provider] - Discharge Diet: Usual diet Discharge Activity: Increase activity as tolerated Patient Instructions: Costochondritis (ED) Activity Restrictions/Additional Instructions: Continue taking your hydrocodone at home. Muscle relaxer and steroid as prescribed. Follow-up with primary care provider. Return with any new or worsening. Coding Level of Care Code ED Partition Notcher for Chg Fwd Documented by User: Miguelito Nix DO 12/28/23 16:52 HPI - Abdominal Pain 2 General: Chief Complaint: Abdominal Pain Stated Complaint: right side Abd pain Time Seen by Provider: 12/26/23 14:19 PFSH ED 2 PFSH: Medical History Postural dizziness with near syncope Acute bacterial sinusitis Recurrent UTI (urinary tract infection) Bradycardia with 51-60 beats per minute Hematuria Stroke 2012 Chronic right hip pain CKD (chronic kidney disease) stage 2, GFR 60-89 ml/min Allergic rhinitis due to allergen Lactose intolerance Exocrine pancreatic insufficiency Hypothyroidism Hypertension SARAH (obstructive sleep apnea) Anxiety and depression GERD (gastroesophageal reflux disease) Surgical History History of right shoulder replacement History of ERCP Status post decompression of compartment syndrome right leg with several surgeries after horse accident Hx of cholecystectomy History of carpal tunnel release H/O esophagogastroduodenoscopy 10/2013 H/O colonoscopy 2016 Hx of appendectomy H/O: hysterectomy Family History Other CAD (coronary artery disease) Diabetes Denies family history of Anesthesia complication Bleeding disorder Social History Smoking and tobacco/nicotine status: current every day tobacco/nicotine user (1 pack) cigarettes Alcohol intake: never Substance/Drug Use: never Household members: spouse Marital status: Current occupational status: disabled Course 2 Vital Signs: Vital signs: Vital Signs Temperature 98.7 F 12/26/23 14:15 Pulse Rate 85 12/26/23 14:15 Respiratory Rate 17 12/26/23 17:01 Blood Pressure 124/79 12/26/23 14:15 Pulse Oximetry 97 12/26/23 17:01 Oxygen Delivery Me thod Room Air 12/26/23 14:15 MDM - Abdominal Pain Medical Decision Making Patient presented with epigastric abdominal pain, stating she thought it was her pancreatitis flaring up. On arrival vitals unremarkable and condition has remained stable throughout ED course. Examination did reveal some reproducible tenderness to palpation about the epigastrium as well as to the right CVA area, which did appear to follow a rib margin. All of her laboratory workup was negative, including a negative lipase. CT of the abdomen pelvis did not reveal any acute abnormalities. Her EKG was unremarkable. She does have history of cholecystectomy, and due to her negative workup I now feel that she is dealing with musculoskeletal pain, possibly a costochondritis as it did follow the the rib margin on the right side. Will treat with steroids and muscle relaxers, she will continue to take her hydrocodone at home. Reasons to return discussed and she will follow-up with primary care. Chart reviewed Lab Data 12/26/23 13:30 12/26/23 13:30 Labs/Radiology: Radiology Impressions Abdomen/Pelvis CT 12/26/23 15:18 IMPRESSION: 1. No evidence of acute abnormality in the abdomen or pelvis. Laboratory Results WBC 5.78 10^3/uL (3.29-11.43) 12/26/23 13:30 RBC 4.21 10^6/uL (3.85-5.65) 12/26/23 13:30 Hgb 13.50 g/dL (11.27-16.99) 12/26/23 13:30 Hct 41.3 % (36-47) 12/26/23 13:30 MCV 98.1 fl (85-98) H 12/26/23 13:30 MCH 32.1 pg (27-33) 12/26/23 13:30 MCHC 32.7 g/dL (30-55) 12/26/23 13:30 RDW 13.2 % (12.1-15.1) 12/26/23 13:30 Plt Count 212 10^3/cmm (157-399) 12/26/23 13:30 MPV 11.2 fL (7.4-10.4) H 12/26/23 13:30 Neut % (Auto) 72.3 % 12/26/23 13:30 Lymph % (Auto) 19.9 % 12/26/23 13:30 [place] % (Auto) 6.2 % 12/26/23 13:30 Eos % (Auto) 1.2 % 12/26/23 13:30 Baso % (Auto) 0.2 % 12/26/23 13:30 Neut # (Auto) 4.18 10^3/uL (1.8-7.7) 12/26/23 13:30 Lymph # (Auto) 1.2 10^3/uL (0.8-4.8) 12/26/23 13:30 [place] # (Auto) 0.4 10^3/uL (0.2-0.9) 12/26/23 13:30 Eos # (Auto) 0.1 10^3/uL (0.0-0.8) 12/26/23 13:30 Baso # (Auto) 0.0 10^3/uL (0.0-0.1) 12/26/23 13:30 Nucleated RBC % (auto) 0 % 12/26/23 13:30 Nucleated RBCs # 0.0 /100WBC 12/26/23 13:30 Sodium 141 mmol/L (136-145) 12/26/23 13:30 Potassium 3.9 mmol/L (3.5-5.1) 12/26/23 13:30 Chloride 102 mmol/L (98-107) 12/26/23 13:30 Carbon Dioxide 28 mmol/L (22-29) 12/26/23 13:30 Anion Gap 14.9 (5-19) 12/26/23 13:30 BUN 13 mg/dL (8-23) 12/26/23 13:30 Creatinine 1.0 mg/dL (0.5-0.9) H 12/26/23 13:30 GFR Calculation 55.6 mL/min (90-130) L 12/26/23 13:30 Glucose 130 mg/dL (65-115) H 12/26/23 13:30 Calculated Osmolality 294 mOsm/kg (285-295) 12/26/23 13:30 Calcium 9.7 mg/dL (8.5-10.5) 12/26/23 13:30 Total Bilirubin 0.3 mg/dL (0.15-1.2) 12/26/23 13:30 AST 5 U/L (0-32) 12/26/23 13:30 ALT < 5 U/L (0-33) 12/26/23 13:30 Alkaline Phosphatase 89 U/L (35-105) 12/26/23 13:30 Total Protein 7.4 g/dL (6.6-8.7) 12/26/23 13:30 Albumin 4.3 g/dL (3.5-5.2) 12/26/23 13:30 Globulin 3.1 g/dL (1.3-4.6) 12/26/23 13:30 Lipase 37 U/L (13-60) 12/26/23 13:30 Urine Color Yellow (Yellow) 12/26/23 15:07 Urine Appearance Clear (CLEAR) 12/26/23 15:07 Urine pH 5 (5-7) 12/26/23 15:07 Ur Specific [place] 1.015 (1.005-1.030) 12/26/23 15:07 Urine Protein Neg (Negative) 12/26/23 15:07 Urine Glucose (UA) Norm (Normal) 12/26/23 15:07 Urine Ketones Negative (Negative) 12/26/23 15:07 Urine Blood 3+ (Negative) H 12/26/23 15:07 Urine Nitrate Negative (Negative) 12/26/23 15:07 Urine Bilirubin Neg (Negative) 12/26/23 15:07 Urine Urobilinogen Norm mg/dL (Negative) 12/26/23 15:07 Ur Leukocyte Esterase Negative (Negative) 12/26/23 15:07 Urine RBC 0-4 /hpf (0-2) H 12/26/23 15:07 Urine WBC 0-4 /hpf (0-5) H 12/26/23 15:07 Ur Squamous Epith Cells 0-4 /hpf (0-5) H 12/26/23 15:07 Amorphous Sediment Not Reportable 12/26/23 15:07 Urine Bacteria Trace /hpf (NONE) 12/26/23 15:07 Discharge Plan Discharge Patient Disposition: Home Clinical Impression: Acute costochondritis Condition: Stable Prescriptions: New prednisone 20 mg tablet 60 mg PO ONCE 5 Days Qty: 15 0RF methocarbamol 750 mg tablet 750 mg PO Q8H 5 Days Qty: 15 0RF No Action (DME) Monoject Safety Syringes 3 mL 23 gauge x 1 syringe See Rx Instructions .Route Qty: 50 3RF Rx Instructions: As directed hydrocodone-acetaminophen 7.5-325 mg tablet 1 tab PO TID PRN (Reason: Pain) guaifenesin 600 mg tablet extended release 12hr 600 mg PO BID Qty: 20 0RF sulfamethoxazole-trimethoprim 800-160 mg tablet 1 tab PO BID Qty: 14 0RF prednisone 20 mg tablet 60 mg PO DAILY Qty: 15 0RF clarithromycin 500 mg tablet 500 mg PO BID 10 Days Qty: 20 0RF (DME) BD Regular [place]vel [place] 25 gauge x 5/8 needle See Rx Instructions .Route Qty: 100 0RF Rx Instructions: As directed for b-12 injection folic acid 1 mg tablet 1 mg PO DAILY Qty: 90 3RF azelastine 137 mcg (0.1 %) aerosol,spray 2 spray intranasal BID Qty: 30 4RF Rx Instructions: USE 1 SPRAY IN EACH NOSTRIL TWO TIMES DAILY FOR ALLERGIES cyanocobalamin (vitamin B-12) 1,000 mcg/mL solution 1,000 mcg IM Q7D Qty: 10 6RF Rx Instructions: On Thursday metoprolol tartrate 25 mg tablet 25 mg PO BID Qty: 60 3RF trazodone 100 mg tablet See Rx Instructions .ROUTE .COMPLEX Qty: 90 1RF Dose Instruction: take 1/2 to 1 tablet BY MOUTH AT BEDTIME Rx Instructions: take 1/2 to 1 tablet BY MOUTH AT BEDTIME bupropion HCl 200 mg tablet sustained-release 12 hr 200 mg PO QAM Qty: 90 0RF pantoprazole 40 mg tablet,delayed release (DR/EC) 40 mg PO DAILY PRN (Reason: acid reflux) Qty: 30 5RF levothyroxine 25 mcg tablet See Rx Instructions .ROUTE .COMPLEX Qty: 30 2RF Dose Instruction: TAKE 1 TABLET BY MOUTH EVERY DAY Rx Instructions: TAKE 1 TABLET BY MOUTH EVERY DAY fluticasone propionate 50 mcg/actuation spray,suspension See Rx Instructions .ROUTE .COMPLEX Qty: 16 11RF Dose Instruction: USE 1 SPRAY IN EACH NOSTRIL TWICE DAILY NEEDED FOR allergy symptoms Rx Instructions: USE 1 SPRAY IN EACH NOSTR[place] TWICE DAILY NEEDED FOR allergy symptoms dicyclomine 10 mg capsule 10 mg PO PRN Discharge Orders: Discharge ED (Routine); Ordered 12/26/23 Ordered By: Nikko Rose Referrals: Demarco Huertas MD [Primary Care Provider] - Discharge Diet: Usual diet Discharge Activity: Increase activity as tolerated Patient Instructions: Costochondritis (ED) Activity Restrictions/Additional Instructions: Continue taking your hydrocodone at home. Muscle relaxer and steroid as prescribed. Follow-up with primary care provider. Return with any new or worsening. Coding Level of Care Code ED Partition Notcher for Betty Lemon
--- NOTE | 2023-12-26 14:47 | ECG_ITS ---
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 Measurements Intervals [place] Rate: 74 P: 81 NH: 165 QRS: 0 QRSD: 101 T: 51 QT: 363 QTc: 404 Interpretive Statements SINUS RHYTHM Compared to ECG 03/26/2023 12:36:53 No significant changes Electronically Signed On 12-27-2023 11:42:46 CDT by Bright Rivers M.D. [email or web address], [id number]
[2023-12-26 14:52] LABS: Basophils % 0.2 %; Eosinophils # 0.1 10^3/uL (0.0-0.8); Eosinophils % 1.2 %; Hematocrit 41.3 % (36-47); Lymphocytes # 1.2 10^3/uL (0.8-4.8); Lymphocytes % 19.9 %; Mean Corpuscular HGB Conc 32.7 g/dL (30-55); Mean Corpuscular Hemoglobin 32.1 pg (27-33); Mean Corpuscular Volume 98.1 fl (85-98); Mean Platelet Volume 11.2 fL (7.4-10.4); Monocytes # 0.4 10^3/uL (0.2-0.9); Monocytes % 6.2 %; Neutrophils # 4.18 10^3/uL (1.8-7.7); Neutrophils % 72.3 %; Nucleated Red Blood Cells % 0 %; Platelet Count 212 10^3/cmm (157-399); Red Blood Count 4.21 10^6/uL (3.85-5.65); Red Cell Distribution Width 13.2 % (12.1-15.1); White Blood Count 5.78 10^3/uL (3.29-11.43)
[2023-12-26 15:03] LABS: Albumin Level 4.3 g/dL (3.5-5.2); Alkaline Phosphatase 89 U/L (35-105); Anion Gap 14.9 (5-19); Blood Urea Nitrogen 13 mg/dL (8-23); Calcium 9.7 mg/dL (8.5-10.5); Carbon Dioxide 28 mmol/L (22-29); Chloride 102 mmol/L (98-107); Globulin 3.1 g/dL (1.3-4.6); Glomerular Filtration Rate 55.6 mL/min (90-130); Glucose 130 mg/dL (65-115); Lipase 37 U/L (13-60); Osmolality Calculated 294 mOsm/kg (285-295); Potassium 3.9 mmol/L (3.5-5.1); Sodium 141 mmol/L (136-145); Total Bilirubin 0.3 mg/dL (0.15-1.2); Total Protein 7.4 g/dL (6.6-8.7)
[2023-12-26] MEDS: sodium chloride 0.9% 1,000 ML 999 ML IV (15:04)
[2023-12-26] MEDS: morphine 4 mg/mL SDV 1 mL IVP ×2 (15:04→17:01)
[2023-12-26] MEDS: metoclopramide 5 mg/mL SDV 2 mL 10 MG IVP (15:04)
[2023-12-26 15:12] LABS: Creatinine Clr Calc Pharmacy 52.8353
[2023-12-26 15:14] LABS: Alanine Aminotransferase < 5 U/L (0-33); Aspartate Amino Transferase 5 U/L (0-32)
--- NOTE | 2023-12-26 15:18 | CTR_ITS ---
PROCEDURE INFORMATION: Exam: CT Abdomen And Pelvis With Contrast Exam date and time: 12/26/2023 3:44 PM Age: 63 years old Clinical indication: Abdominal pain; Generalized; Additional info: Epigastric pain TECHNIQUE: Imaging protocol: Computed tomography of the abdomen and pelvis with contrast. Radiation optimization: All CT scans at this facility use at least one of these dose optimization techniques: automated exposure control; mA and/or kV adjustment per patient size (includes targeted exams where dose is matched to clinical indication); or iterative reconstruction. Contrast material: OMNI 350; Contrast volume: 100 ml; Contrast route: INTRAVENOUS (IV); COMPARISON: MR abdomen wo con [id number] 02/04/2021 8:28 AM RADIATION DOSE METRICS: Total DLP (mGy-cm): 417.08 FINDINGS: Lungs: Subsegmental bibasilar atelectasis. The visualized lung bases are otherwise grossly clear. Diaphragm: No evidence of diaphragmatic defect. Liver: No focal hepatic lesion. Gallbladder and bile ducts: Status post cholecystectomy. No evidence of intrahepatic or extrahepatic biliary dilatation. Pancreas: Unremarkable. Spleen: 10 mm hypodensity in the superomedial aspect of the spleen, not significantly changed since January 2021, favored to represent a hemangioma. Adrenal glands: Unremarkable. Kidneys and ureters: There are simple appearing left-sided renal cysts for which dedicated imaging follow-up is not required. Otherwise no evidence of renal parenchymal abnormality. No hydronephrosis or ureteral stone. Stomach and bowel: Colonic diverticulosis without evidence of acute diverticulitis. No bowel obstruction or perienteric inflammatory changes. Appendix: The appendix is not visualized, however there are no findings to suggest appendicitis. Intraperitoneal space: No evidence of free air or fluid collection. Vasculature: No aneurysmal dilatation or dissection of the abdominal aorta. The celiac trunk, SMA and BROWN are grossly patent. No evidence of IVC thrombus. The portal vein, SMV and splenic veins are grossly patent. Lymph nodes: No adenopathy. Urinary bladder: Grossly unremarkable. Reproductive: Prior hysterectomy. Bones/joints: No evidence of acute fracture or aggressive osseous lesion. Soft tissues: No evidence of fluid collection or hematoma in the superficial soft tissues. CT/CT abdomen pelvis w con* [id number] IMPRESSION: 1. No evidence of acute abnormality in the abdomen or pelvis.
[2023-12-26 15:34] LABS: Add Urine Culture? No; Add Urine Microscopic? YES; Bacteria Urine TRACE /hpf; Bilirubin Urine Neg (Negative); Blood Urine 3+ (Negative); Glucose Urine UA Norm (Normal); Ketones Urine Negative (Negative); Leukocyte Esterase Urine Negative (Negative); Nitrate Urine Negative (Negative); Protein Urine Neg (Negative); RBC Urine 0-4 /hpf (0-2); Specific Gravity, Urine 1.015 (1.005-1.030); Squamous Epithelial Cell Urine 0-4 /hpf (0-5); Urine Appearance Clear (CLEAR); Urine Color Yellow (Yellow); Urobilinogen Urine Norm (Negative); WBC Urine 0-4 /hpf (0-5); pH Urine 5 (5-7)
[2023-12-26] MEDS: iohexol 350 mg/mL 500 mL Btl (per mL) IV (15:48)
[2023-12-26 17:01] VITALS: RESP 17; O2SAT 97
[2023-12-26] MEDS: methocarbamol 750 mg Tablet PO (18:11)
[2023-12-26] MEDS: dexamethasone 10 mg/mL INJ 8 MG IVP (18:11)
== END 2023-12-26 18:12 | disposition home or self-care (01) ==
PROVIDERS: Emergency Provider Physician Assistant; PCP Family Medicine Adult Medicine
DX: M94.0 Chondrocostal junction syndrome [Tietze] (principal); F17.210 Nicotine dependence, cigarettes, uncomplicated; Z86.73 Personal history of transient ischemic attack (TIA), and cerebral infarction without residual deficits; I12.9 Hypertensive chronic kidney disease with stage 1 through stage 4 chronic kidney disease, or unspecified chronic kidney disease; N18.2 Chronic kidney disease, stage 2 (mild)
CPT/HCPCS: 74177; 80053; 81001; 83690; 85025; 93005; 96361; 96374; 96375; 96376; 99285; J1100; J2270; J2765; J7030; Q9967

== ENCOUNTER → 2024-01-05 14:37 | Outpatient (BNVA) | payer MEDICARE, MEDICAID, SELFPAY | PROVIDERS: PCP Family Medicine Adult Medicine; Visit Provider Podiatrist Foot & Ankle Surgery | DX: G57.62 Lesion of plantar nerve, left lower limb (principal) | CPT/HCPCS: 99213 ==

== ENCOUNTER → 2024-04-06 10:00 | Outpatient (BNVA) | payer MEDICARE, MEDICAID, SELFPAY | PROVIDERS: PCP Family Medicine Adult Medicine; Visit Provider Podiatrist Foot & Ankle Surgery | DX: G57.62 Lesion of plantar nerve, left lower limb (principal) | CPT/HCPCS: 64455; J1100; J3301 ==

== ENCOUNTER 2024-06-27 08:49 | Outpatient (CLI) | payer MEDICARE, MEDICAID, SELFPAY ==
--- NOTE | 2024-06-27 08:56 | CT_ITS ---
WS: [id number] LDCT LUNG CANCER SCREENING TECHNIQUE: Noncontrast CT of the chest with coronal and sagittal reformatted images. CLINICAL INFORMATION: NICOTINE DEPENDENCE, CIGARETTES COMPARISON: 2013 DLP: 45.50 mGy.cm DIvol: Mean CTDIvol: 0.90 (mGy) All CT scans at [facility] use at least one of these dose optimization techniques: automat ed exposure control; mA and/or kV adjustment per patient size (includes targeted exams where dose is matched to clinical indication); or iterative reconstruction. FINDINGS: No mediastinal or hilar lymphadenopathy. No axillary lymphadenopathy. Calcified granuloma R IGHT upper lobe. A few calcified granulomas in the LEFT lung. Calcified LEFT hilar nodes. Small nodul e along the RIGHT fissure measuring 5 mm. Subsegmental atelectasis in the RIGHT middle lobe. Noncalci fied nodule LEFT upper lobe measuring 4 mm. 4 mm nodule in the LEFT fissure. Normal caliber thoracic aorta. Tiny esophageal canal hernia. Cholecystectomy clips. Noncontrast splee n is normal. Mild thoracic kyphosis. Mild thoracic curve. CT/CT lung screening [id number] IMPRESSION: LUNG-RADS: 2-Benign Appearance or Behavior FOLLOW UP: 12 Month: Continue annual screening with LDCT
== END 2024-06-27 08:50 | disposition home or self-care (01) ==
LOC: RAD 08:50
PROVIDERS: PCP Family Medicine Adult Medicine; Visit Provider Nurse Practitioner Family
DX: Z12.2 Encounter for screening for malignant neoplasm of respiratory organs (principal); F17.210 Nicotine dependence, cigarettes, uncomplicated; J84.10 Pulmonary fibrosis, unspecified; R91.8 Other nonspecific abnormal finding of lung field; J98.11 Atelectasis; Z90.49 Acquired absence of other specified parts of digestive tract
CPT/HCPCS: 71271

== ENCOUNTER 2024-08-26 12:06 | Outpatient (CLI) | payer MEDICARE, MEDICAID, SELFPAY ==
--- NOTE | 2024-08-26 12:13 | MM_ITS ---
WS: [id number] VIEWS: MLO and CC views both breasts. 3D digital tomosynthesis is also included in this exam. Comparison made with prior exam of 07/31/2006, 08/02/2007, 08/03/2008, 08/09/2009, 08/07/2010, 09/02/2011, 2012, 11/15/2013, 11/17/2014, 11/23/2015, 12/08/2016, 12/31/2016, 01/01/2018, 01/12/2019, 02/03/2020, , 08/14/2022, 08/19/2023.. Findings: The breasts are heterogeneously dense, which may obscure small masses. No sign of suspicious mass, tumor calcification or architectural distortion. Stable appearing nodules in both breasts. MM/MM scr BI tomosynthesis [id number] Impression: BI-RADS: 2 - Benign FOLLOW-UP: 1 Year Follow-up This mammogram was also analyzed by the Computer Aided Detection System R2 Imag e [employer].
== END 2024-08-26 12:07 | disposition home or self-care (01) ==
LOC: RAD 12:07
PROVIDERS: PCP Family Medicine Adult Medicine; Visit Provider Nurse Practitioner Family
DX: Z12.31 Encounter for screening mammogram for malignant neoplasm of breast (principal); R92.333 Mammographic heterogeneous density, bilateral breasts; N63.20 Unspecified lump in the left breast, unspecified quadrant; N63.10 Unspecified lump in the right breast, unspecified quadrant
CPT/HCPCS: 77063; 77067

== ENCOUNTER → 2024-09-13 10:16 | Outpatient (BNVA) | payer MEDICARE, MEDICAID, SELFPAY | PROVIDERS: PCP Family Medicine Adult Medicine; Visit Provider Podiatrist Foot & Ankle Surgery | DX: G57.62 Lesion of plantar nerve, left lower limb (principal); M79.672 Pain in left foot | CPT/HCPCS: 64455; 99214; J1100; J3301; J3490 ==

== ENCOUNTER 2024-10-14 09:18 | Day surgery (SDC) | payer MEDICARE, MEDICAID, SELFPAY ==
[2024-10-14] VITALS (10 sets, daily range): BP systolic 113–133; BP diastolic 64–80; PULSE 56–68; RESP 14–18; TEMP 36.1–36.7; O2SAT 96–100; BMI 24.9
--- NOTE | 2024-10-14 09:20 | ANES.PREANE2 ---
Pre-Anesthetic Assessment Height/Weight: Height 5 ft 4 in Preop Diagnosis: Lopez's neuroma Operation Date: 10/14/24 10:55 Proposed Procedures p Decompression versus excision of left third intermetatarsal neuroma(Left) - Jean-Claude Roth DPM Was Beta [place] taken within 24 hours: Yes Was Clonidine taken within 24 hours: N/A Social Tobacco and No alcohol Exam alert, oriented x 3, clear to auscultation bilaterally and regular rate & rhythm Airway Submandibular: within normal limits Cervical ROM: within normal limits Mallampati: Class II Dentition: false Anesthetic Plan ASA status: 3 Anesthesia: MAC Other: No prior issues with anesthesia NPO since yesterday evening Cigarette smoker SARAH, wears CPAP CKD stage II Hypothyroidism on Synthroid Hypertension on metoprolol EKG sinus rhythm Plan for MAC anesthesia with local via surgeon Medications/Allergies Home Medications ?Medication ?Instructions ?Recorded ?Confirmed ?Last Taken ?Type syringe with needle, safety 3 mL #50 device 02/04/21 10/14/24 04/08/22 Rx 23 gauge x 1 (Monoject Safety Syringes) needle (disp) 25 gauge 25 gauge x #100 ea 02/06/21 10/14/24 04/08/22 Rx 5/8 (BD Regular Bevel [place]) folic acid 1 mg tablet 1 mg PO DAILY #90 tabs 03/17/23 10/14/24 10/13/24 Rx azelastine 137 mcg (0.1 %) nasal 2 spray intranasal BID #30 mL 05/26/23 10/14/24 10/13/24 Rx spray CPAP supplies, tubing #1 ea 02/03/24 10/14/24 Unknown Rx fexofenadine 180 mg tablet 180 mg PO DAILY 10/12/24 10/14/24 10/13/24 History fluticasone propionate 50 50 mcg intranasal BID 10/12/24 10/14/24 10/13/24 History mcg/actuation nasal spray,suspension levothyroxine 25 mcg tablet 25 mcg PO DAILY 10/12/24 10/14/24 10/13/24 History metoprolol tartrate 25 mg tablet 25 mg PO BID 10/12/24 10/14/24 10/14/24 History 0700 rosuvastatin 10 mg tablet 10 mg PO DAILY 10/12/24 10/14/24 10/13/24 History trazodone 100 mg tablet 100 mg PO BEDTIME 10/12/24 10/14/24 10/13/24 History cyanocobalamin (vitamin B-12) 1,000 mcg IM DIRECTED 10/14/24 10/14/24 10/03/24 History 1,000 mcg/mL injection solution Allergies Allergy/AdvReac Type Severity Reaction Status Date / Time iodine Allergy ALGY-Swell Verified 09/13/24 10:38 Lip/Tongue/Throat Penicillins Allergy ALGY-Swell Verified 09/13/24 10:38 Lip/Tongue/Throat PFSH Anesthesia Medical History Hot flash, menopausal Postural dizziness with near syncope Bradycardia with 51-60 beats per minute Hematuria Stroke 2012 Chronic right hip pain CKD (chronic kidney disease) stage 2, GFR 60-89 ml/min Allergic rhinitis due to allergen Lactose intolerance Exocrine pancreatic insufficiency Hypothyroidism Hypertension SARAH (obstructive sleep apnea) CPAP Anxiety and depression GERD (gastroesophageal reflux disease) Surgical History History of right shoulder replacement History of ERCP Status post decompression of compartment syndrome right leg with several surgeries after horse accident Hx of cholecystectomy History of carpal tunnel release H/O esophagogastroduodenoscopy 10/2013 H/O colonoscopy 2016 Hx of appendectomy H/O: hysterectomy Family History Other CAD (coronary artery disease) Diabetes Denies family history of Anesthesia complication Bleeding disorder Social History Smoking and tobacco/nicotine status: unknown if used tobacco/nicotine Alcohol intake: never Substance/Drug Use: never Household members: spouse Marital status: Current occupational status: disabled Data Anesthesia Cardiac Studies: Echocardiogram 04/10/23 Cardiac Event Monitor 02/23/23
[2024-10-14] MEDS: CELEcoxib 200 mg Capsule 400 MG PO (10:18)
[2024-10-14] MEDS: gabapentin 300 mg Capsule PO (10:18)
[2024-10-14] MEDS: sodium chloride 0.9% 1,000 ML 30 ML IV (10:19)
--- NOTE | 2024-10-14 10:23 | P.HPUD_ITS ---
Surgery/Procedure H&P Update DATE OF PROCEDURE: October 14, 2024 DATE H&P PERFORMED: 10/14/24 H&P UPDATE INFORMATION: I have reviewed H&P completed within last 30 days, I have examined patient prior to procedure, No changes to prior documentation and [place] [facility] [place] indicated PREOP DIAGNOSIS: Lopez's neuroma PLANNED PROCEDURE: Operation Date: 10/14/24 10:55 Proposed Procedures p Decompression versus excision of left third intermetatarsal neuroma(Left) - Jean-Claude Roth DPM
[2024-10-14] MEDS: midazolam 1 mg/mL INJ 2 mL 2 MG IVP (10:30)
--- NOTE | 2024-10-14 10:31 | PM.OPSURHP ---
Providers/Chief Complaint Primary Care Provider: DANNY Gonzalez Chief Complaint: [id number] History of Present Illness Diane Mendoza is a 64 year old female presenting with an increase in pain at the left third intermetatarsal space consistent with Lopez's neuroma. The condition was first noted in 2022 and has persisted for two years. Initial management included two corticosteroid injections in 2022, which provided temporary relief. In 2023, three additional injections were administered. Despite these interventions, she experiences persistent pain and has considerable difficulty in ambulating, impacting her ability to perform daily activities such as walking and caring for her horse. The current exacerbation of symptoms has prompted a discussion regarding surgical intervention. Her baseline function is notably impaired, and she expresses interest in exploring surgical options at today's visit. Review of Systems General: Reports: 10 or more systems reviewed and unremarkable except in HPI and below Const: Denies: fever(s) or chills Eyes: Denies: change in vision Card: Denies: chest pain or palpitations Resp: Denies: dyspnea or productive cough GI: Denies: abdominal pain, nausea or vomiting : Denies: flank pain Musc: Reports: extremity pain, joint pain, joint stiffness, limited range of motion and deformity Skin/Breast: Reports: skin tenderness; Denies: rash Neuro: Reports: difficulty walking; Denies: numbness in extremities, sensory changes or frequent falls Psych: Denies: suicidal ideation Tanvir/Lymph: Denies: easy bruising Medications/Allergies Home Medications ?Medication ?Instructions ?Recorded ?Confirmed ?Last Taken ?Type syringe with needle, safety 3 mL #50 device 02/04/21 10/14/24 04/08/22 Rx 23 gauge x 1 (Monoject Safety Syringes) needle (disp) 25 gauge 25 gauge x #100 ea 02/06/21 10/14/24 04/08/22 Rx 5/8 (BD Regular Bevel [place]) folic acid 1 mg tablet 1 mg PO DAILY #90 tabs 03/17/23 10/14/24 10/13/24 Rx azelastine 137 mcg (0.1 %) nasal 2 spray intranasal BID #30 mL 05/26/23 10/14/24 10/13/24 Rx spray CPAP supplies, tubing #1 ea 02/03/24 10/14/24 Unknown Rx fexofenadine 180 mg tablet 180 mg PO DAILY 10/12/24 10/14/24 10/13/24 History fluticasone propionate 50 50 mcg intranasal BID 10/12/24 10/14/24 10/13/24 History mcg/actuation nasal spray,suspension levothyroxine 25 mcg tablet 25 mcg PO DAILY 10/12/24 10/14/24 10/13/24 History metoprolol tartrate 25 mg tablet 25 mg PO BID 10/12/24 10/14/24 10/14/24 History 0700 rosuvastatin 10 mg tablet 10 mg PO DAILY 10/12/24 10/14/24 10/13/24 History trazodone 100 mg tablet 100 mg PO BEDTIME 10/12/24 10/14/24 10/13/24 History cyanocobalamin (vitamin B-12) 1,000 mcg IM DIRECTED 10/14/24 10/14/24 10/03/24 History 1,000 mcg/mL injection solution Allergies Allergy/AdvReac Type Severity Reaction Status Date / Time iodine Allergy ALGY-Swell Verified 09/13/24 10:38 Lip/Tongue/Throat Penicillins Allergy ALGY-Swell Verified 09/13/24 10:38 Lip/Tongue/Throat PFSH PFSH: Medical History Hot flash, menopausal Postural dizziness with near syncope Bradycardia with 51-60 beats per minute Hematuria Stroke 2012 Chronic right hip pain CKD (chronic kidney disease) stage 2, GFR 60-89 ml/min Allergic rhinitis due to allergen Lactose intolerance Exocrine pancreatic insufficiency Hypothyroidism Hypertension SARAH (obstructive sleep apnea) CPAP Anxiety and depression GERD (gastroesophageal reflux disease) Surgical History History of right shoulder replacement History of ERCP Status post decompression of compartment syndrome right leg with several surgeries after horse accident Hx of cholecystectomy History of carpal tunnel release H/O esophagogastroduodenoscopy 10/2013 H/O colonoscopy 2016 Hx of appendectomy H/O: hysterectomy Family History Other CAD (coronary artery disease) Diabetes Denies family history of Anesthesia complication Bleeding disorder Social History Smoking and tobacco/nicotine status: unknown if used tobacco/nicotine Alcohol intake: never Substance/Drug Use: never Household members: spouse Marital status: Current occupational status: disabled Vital Signs Vitals Signs: Last Vital Signs Temp 98.1 F 10/14/24 09:35 Pulse 68 10/14/24 09:35 Resp 18 10/14/24 09:35 BP 130/80 10/14/24 09:35 Pulse Ox 98 10/14/24 09:35 O2 Del Method Room Air 10/14/24 09:35 Weight: Weight last 48 hrs Weight 145 lb Physical Exam Narrative: EXAM NARRATIVE: Patient is alert and oriented ?3 and in no acute distress. The following is a focused bilateral lower extremity exam. VASCULAR: Dorsalis pedis and posterior tibial arteries palpable +2. Capillary refill time less than 3 seconds to the distal hallux bilaterally. Calf is supple and nontender proximally and distally. No pedal edema appreciated. Pedal hair growth present. NEUROLOGICAL: Epicritic and protopathic sensations grossly intact to the lower extremities. +2 Achilles tendon reflex noted bilaterally. Negative Tinel sign upon percussion of lower extremity nerves. DERMATOLOGICAL: Lower extremity skin is well-hydrated, normal texture and turgor. There are no open sores or lesions noted to the lower extremities. No erythema or ecchymosis present to the bilateral legs and feet. MUSCULOSKELETAL: Exquisite pain to palpation at the left third intermetatarsal space. No palpable mass along the course of the plantar fascia appreciated. No pain to palpation along the course of the bilateral Achilles tendon. No pain to palpation along the course posterior tibial tendon or peroneal tendons. No pain with [id number] compression of calcaneus, bilaterally. Muscle strength is 5/5 in all 3 cardinal planes pain-free without guarding to the foot and ankle, bilaterally. CARDIOVASCULAR: S1, S2, normal rate, normal rhythm. Dorsalis pedis and posterior tibial arteries palpable. LUNGS: Clear to auscltation, no use of acessory muscles, no crackles or wheezes. 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 After obtaining verbal and written consent patient wishes to proceed. Area was cleansed with alcohol wipe, cold spray was utilized. Injection carried out consisting of a total of 3 mL 1-1-1 mixture 0.5% Marcaine plain, dexamethasone and Kenalog. Patient tolerated procedure well. Area covered with a Band-Aid. Cortisone injection left third and metatarsal space for Lopez's neuroma dorsal approach tolerated well performed 09/13/2024 (2) Foot pain, left: Plan Assessment and Plan 64-year-old female with history of Lopez's neuroma presenting with increased pain in the left third intermetatarsal space. The neuroma has been refractory to multiple corticosteroid injections over the past two years, and the patient is experiencing significant functional limitations. Differential considerations include persistent neuroma and possible nerve compression or entrapment. Surgical intervention is a contemplative next step given the non-satisfactory response to conservative measures thus far. 1. Lopez's Neuroma Of The Left Third Intermetatarsal Space The patient has experienced two years of pain attributed to Lopez's neuroma, with multiple corticosteroid injections providing only temporary relief. After discussion of the surgical options, including nerve decompression and possible neurectomy, patient consents to proceeding with surgery. We will plan for an outpatient procedure aimed first at releasing tissue around the entrapped nerve. If decompression does not adequately address the issue, a neurectomy will be performed. The expected surgery and recovery plan, including outpatient care, sedation anesthesia, and postop restrictions (e.g., wearing a postop shoe and non-weight bearing instructions), were conveyed to the patient. She has been advised to continue with a pre-surgery injection for temporary relief until the surgical date in late September to early October is finalized. - Schedule an outpatient surgery for the end of September to early October. - Receive a corticosteroid injection today for temporary pain relief. - Plan to arrive an hour early on the day of surgery for anesthesia and prep. - Expect a recovery time with non-weight bearing activity initially; plan to wear a post-surgery shoe. - Monitor pain levels and function at home, and report any increase in symptoms promptly. The patient's increased foot pain due to Lopez's neuroma has proven resistant to conventional conservative treatments including repetitive corticosteroid injections. Surgical intervention is now considered the most viable approach to alleviate symptoms and restore function. The planned surgery involves initial nerve decompression with a potential neurectomy if warranted during the procedure. The advantages include immediate symptom relief post-surgery and reduced chances of recurrence. The choice of anesthesia is topical sedation, beneficial for reducing recovery time. The anticipated outcome is an improved ability to perform daily activities without significant pain. The patient has been engaged in comprehensive discussions regarding the surgical process, risks, benefits, and adjustments required during postoperative recovery. A corticosteroid injection will offer interim pain alleviation as we prepare for definitive surgical management. I reviewed at length with the patient, the risks, potential complications, benefits, alternatives, expectations, and typical outcomes associated with the surgery. The risks and potential complications were explained in detail, including but not limited to infection, wound dehiscence or soft tissue complications, bleeding and hematoma, chronic edema, neuritis or nerve damage producing numbness or chronic pain, CRPS, failure to relieve pain or worsening pain, thick / painful / unsightly scar, limited motion / stiffness, malposition, delayed union, malunion, or nonunion, fracture, reaction to implants, anesthetic complications, venous thromboembolism, and deformity recurrence. I discussed the notion of no regrets with the patient as it pertains to complications and outcomes. The patient seemed to understand the nature of the proposed care and required convalescence. They asked appropriate questions, answered to their satisfaction. They are aware no guarantees can be made as to a satisfactory outcome and they understand there may be other possible unforeseen complications or outcomes not listed here that will be treated accordingly if they arise. There were no written or implied guarantees given to the patient. They gave informed consent to proceed. Outpatient surgery left third intermetatarsal neuroma decompression versus excision local MAC, jamil, supine, 30 minutes. 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
[2024-10-14] MEDS: clindamycin 600 MG/50 ML PREMIX 100 MG IV (10:38)
[2024-10-14] MEDS: BUPivacaine liposome 13.3 mg/mL SDV 20 mL 266 MG INFILTRATI (11:02)
[2024-10-14] MEDS: BUPivacaine 0.5% INJ 30 mL 20 ML INJECTION (11:02)
--- NOTE | 2024-10-14 11:07 | P.BOP_ITS ---
Date of Procedure: 10/09/23 Surgeon: Jean-Claude Roth DPM [employer] Glazer(s): Liliana Mosher student Procedure(s) performed: Decompression left third intermetatarsal space for Lopez's neuroma. Findings of the procedure(s): Lopez's neuroma left third intermetatarsal space. Estimated blood loss: 1 mL Specimen(s) removed: No specimens removed Post-operative diagnosis: Metatarsalgia, foot pain Lopez's neuroma left foot third intermetatarsal space
--- NOTE | 2024-10-14 11:09 | PM.OP ---
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 CPT code 80593 Implants: 5-0 Monocryl and 4-0 nylon Specimens removed/disposition: No specimen removed Pathology: No pathology specimens Surgeon: Jean-Claude Roth DPM [employer] Technician: Liliana Mosher student Estimated blood loss: 1 12 IV fluids: See intraoperative documentation Urine output: None Complications: None Brief History: 64-year-old female with history of Lopez's neuroma presenting with increased pain in the left third intermetatarsal space. The neuroma has been refractory to multiple corticosteroid injections over the past two years, and the patient is experiencing significant functional limitations. Differential considerations include persistent neuroma and possible nerve compression or entrapment. Surgical intervention is a contemplative next step given the non-satisfactory response to conservative measures thus far. 1. Lopez's Neuroma Of The Left Third Intermetatarsal Space The patient has experienced two years of pain attributed to Lopez's neuroma, with multiple corticosteroid injections providing only temporary relief. After discussion of the surgical options, including nerve decompression and possible neurectomy, patient consents to proceeding with surgery. We will plan for an outpatient procedure aimed first at releasing tissue around the entrapped nerve. If decompression does not adequately address the issue, a neurectomy will be performed. The expected surgery and recovery plan, including outpatient care, sedation anesthesia, and postop restrictions (e.g., wearing a postop shoe and non-weight bearing instructions), were conveyed to the patient. She has been advised to continue with a pre-surgery injection for temporary relief until the surgical date in late September to early October is finalized. - Schedule an outpatient surgery for the end of September to early October. - Receive a corticosteroid injection today for temporary pain relief. - Plan to arrive an hour early on the day of surgery for anesthesia and prep. - Expect a recovery time with non-weight bearing activity initially; plan to wear a post-surgery shoe. - Monitor pain levels and function at home, and report any increase in symptoms promptly. The patient's increased foot pain due to Lopez's neuroma has proven resistant to conventional conservative treatments including repetitive corticosteroid injections. Surgical intervention is now considered the most viable approach to alleviate symptoms and restore function. The planned surgery involves initial nerve decompression with a potential neurectomy if warranted during the procedure. The advantages include immediate symptom relief post-surgery and reduced chances of recurrence. The choice of anesthesia is topical sedation, beneficial for reducing recovery time. The anticipated outcome is an improved ability to perform daily activities without significant pain. The patient has been engaged in comprehensive discussions regarding the surgical process, risks, benefits, and adjustments required during postoperative recovery. A corticosteroid injection will offer interim pain alleviation as we prepare for definitive surgical management. I reviewed at length with the patient, the risks, potential complications, benefits, alternatives, expectations, and typical outcomes associated with the surgery. The risks and potential complications were explained in detail, including but not limited to infection, wound dehiscence or soft tissue complications, bleeding and hematoma, chronic edema, neuritis or nerve damage producing numbness or chronic pain, CRPS, failure to relieve pain or worsening pain, thick / painful / unsightly scar, limited motion / stiffness, malposition, delayed union, malunion, or nonunion, fracture, reaction to implants, anesthetic complications, venous thromboembolism, and deformity recurrence. I discussed the notion of no regrets with the patient as it pertains to complications and outcomes. The patient seemed to understand the nature of the proposed care and required convalescence. They asked appropriate questions, answered to their satisfaction. They are aware no guarantees can be made as to a satisfactory outcome and they understand there may be other possible unforeseen complications or outcomes not listed here that will be treated accordingly if they arise. There were no written or implied guarantees given to the patient. They gave informed consent to proceed. Procedure: Under mild sedation the patient was brought to the operating room and remained on the gurney in supine position. A timeout was performed. Anesthesia was then administered by the anesthesia service. Local anesthesia was injected by myself consisting of 20 cc of 0.5% Marcaine plain in a left third ray block fashion with an additional 20 cc of Exparel subcutaneously in a grid like fashion to the dorsum of the left forefoot. Well-padded pneumatic tourniquet was applied to the left ankle. The left lower extremity was then scrubbed, prepped and draped utilizing normal aseptic technique. Left foot was exanguinated with an Esmarch bandage and the tourniquet inflated to 250 mmHg. A longitudinal incision was made over the dorsal aspect of the foot, between the second and third metatarsal heads, extending approximately 3 cm distally. The subcutaneous tissue and superficial fascia were dissected through using electrocautery, taking care to avoid injury to the digital nerves. Upon exposure of the second intermetatarsal space, the transverse metatarsal ligament was identified and incised to gain access to the underlying structures. Careful dissection was performed to identify the Lopez neuroma, which appeared as a thickened, fibrotic nerve bundle between the third and fourth metatarsal heads. The neuroma was gently dissected free from the surrounding tissues, taking care to preserve the adjacent structures, including the digital nerves and arteries. Blunt dissection and meticulous hemostasis were utilized to ensure optimal visualization and minimize bleeding. Once the neuroma was completely freed, a decision was made to perform a decompression procedure to alleviate pressure on the nerve. The surrounding tissues, including the intermetatarsal ligament and deep transverse intermetatarsal ligament, were carefully released using blunt dissection and electrocautery. After ensuring satisfactory decompression, the wound was thoroughly irrigated with a sterile saline solution to remove any debris or blood. Hemostasis was confirmed, and the wound was closed in layers. The subcutaneous tissues were approximated using absorbable sutures, and the skin was closed with interrupted nylon sutures. Sterile dressings were applied over the incision site, and a sterile compression dressing was applied to the foot. The tourniquet was released, and the patient's foot was inspected for any signs of bleeding or hematoma formation. The foot was then dressed in a soft bulky bandage, and the patient was transferred to the recovery room in stable condition. There were no intraoperative complications, and the patient tolerated the procedure well. Postoperative instructions were provided to the patient, including elevation of the foot, application of ice packs, and limitation of weight-bearing activities for a specified period. The patient was scheduled for a follow-up appointment in the clinic in 1 week to assess the progress of the wound and evaluate for any signs of recurrent symptoms. Summary: The patient underwent a Lopez neuroma decompression procedure, during which the neuroma was identified, dissected free, and a decompression procedure was performed. The patient tolerated the procedure well, and postoperative instructions were provided. The excised specimen confirmed the diagnosis of Lopez neuroma. The patient will be followed up in the clinic to assess the progress of the wound and evaluate for any signs of recurrence.
[2024-10-14] MEDS: morphine 4 mg/mL SDV 1 mL 2 MG IVP (11:23)
[2024-10-14] MEDS: HYDROcodone-acetaminophen 10-325 mg Tablet 1 TAB PO (12:02)
--- NOTE | 2024-10-14 12:25 | ANE.PACU2 ---
Inpatient post-anesthesia follow up: Airway intact: Yes Vital signs: Temperature 97.2 F Pulse Rate 57 Respiratory Rate 16 Blood Pressure 132/68 Pulse Oximetry 100 Oxygen Delivery Me thod Room Air Oxygen Flow Rate Fraction of Inspir ed Oxygen Hydration adequate: Yes Nausea and vomiting: No Pain level: 1 Mental status: Baseline
== END 2024-10-14 12:25 | disposition home or self-care (01) ==
PROVIDERS: PCP Nurse Practitioner Family; Visit Provider Podiatrist Foot & Ankle Surgery
PROC: (CPT 64726; principal; 2024-10-14 10:45)
DX: G57.62 Lesion of plantar nerve, left lower limb (principal); N18.2 Chronic kidney disease, stage 2 (mild); I12.9 Hypertensive chronic kidney disease with stage 1 through stage 4 chronic kidney disease, or unspecified chronic kidney disease; G47.33 Obstructive sleep apnea (adult) (pediatric); F17.210 Nicotine dependence, cigarettes, uncomplicated; K21.9 Gastro-esophageal reflux disease without esophagitis; E03.9 Hypothyroidism, unspecified; Z79.890 Hormone replacement therapy; Z79.899 Other long term (current) drug therapy; Z88.0 Allergy status to penicillin; Z91.041 Radiographic dye allergy status
CPT/HCPCS: 64726; J0666; J2250; J2270; J2704; J3490; J7030; J9999

== ENCOUNTER → 2024-10-27 13:59 | Outpatient (BNVA) | payer MEDICARE, MEDICAID, SELFPAY | PROVIDERS: PCP Nurse Practitioner Family; Visit Provider Podiatrist Foot & Ankle Surgery | DX: Z98.890 Other specified postprocedural states (principal) | CPT/HCPCS: 99024 ==

== ENCOUNTER 2025-01-14 10:22 | Emergency (ER) | payer MEDICARE, MEDICAID, SELFPAY ==
--- NOTE | 2025-01-14 10:29 | ECG_ITS ---
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 Measurements Intervals [place] Rate: 59 P: 60 UT: 138 QRS: 44 QRSD: 96 T: 68 QT: 385 QTc: 384 Interpretive Statements SINUS BRADYCARDIA Compared to ECG 12/26/2023 14:47:25 Sinus rhythm no longer present Electronically Signed On 01-15-2025 19:25:32 CDT by Jeffery Cast M.D. [id number]
[2025-01-14 10:32] VITALS: BP 125/67; PULSE 61; RESP 17; TEMP 36.6; O2SAT 96; BMI 24.9
--- NOTE | 2025-01-14 10:34 | XRR_ITS ---
PROCEDURE INFORMATION: Exam: XR Chest Exam date and time: 01/14/2025 10:55 AM Age: 64 years old Clinical indication: Dyspnea; Cough; Chest congestion TECHNIQUE: Imaging protocol: Radiologic exam of the chest. Views: 1 view. COMPARISON: CT lung screening [id number] 06/27/2024 9:02 AM FINDINGS: Lungs: There is curvilinear atelectasis in the right lower lung. Small calcified right upper lung nodule. Pleural spaces: Unremarkable. No pleural effusion. No pneumothorax. Heart/Mediastinum: Unremarkable. No cardiomegaly. Bones/joints: Right shoulder prosthesis. XR/XR chest 1V portable [id number] IMPRESSION: Curvilinear atelectasis in the right lower lung.
[2025-01-14] MEDS: methylPREDNISolone sod succ 125 mg/2 mL INJ IVP (10:44)
--- NOTE | 2025-01-14 10:45 | W.ED.CHESTPA ---
HPI - Chest Pain General: Chief Complaint: Chest Pain Stated Complaint: chest congestion/tightness Time Seen by Provider: 01/14/25 10:28 History of Present Illness: 64-year-old female presents emergency room complaining of chest tightness shortness of breath nonproductive cough. The patient does smoke. She denies any hemoptysis. Nothing that exacerbates or relieves Associated symptoms: Deny abdominal pain, dyspnea or fever(s) Related Data Home Medications ?Medication ?Instructions ?Recorded ?Confirmed fexofenadine 180 mg tablet 180 mg PO QPM 10/12/24 01/14/25 fluticasone propionate 50 50 mcg intranasal BID PRN allergies 10/12/24 01/14/25 mcg/actuation nasal spray,suspension levothyroxine 25 mcg tablet 25 mcg PO QPM 10/12/24 01/14/25 metoprolol tartrate 25 mg tablet 25 mg PO BID 10/12/24 01/14/25 rosuvastatin 10 mg tablet 10 mg PO QPM 10/12/24 01/14/25 trazodone 100 mg tablet 50 - 100 mg PO BEDTIME 10/12/24 01/14/25 cyanocobalamin (vitamin B-12) 1,000 mcg IM DIRECTED 10/14/24 01/14/25 1,000 mcg/mL injection solution hydrocodone 7.5 mg-acetaminophen 1 tab PO Q6H PRN Pain 10/24/24 01/14/25 325 mg tablet bupropion HCl 150 mg 24 hr tablet, 150 mg PO DAILY 01/14/25 01/14/25 extended release dicyclomine 20 mg tablet 20 mg PO QID PRN Abdominal Pain 01/14/25 01/14/25 escitalopram oxalate 10 mg tablet 10 mg PO DAILY 01/14/25 01/14/25 pantoprazole 40 mg tablet,delayed 40 mg PO QPM 01/14/25 01/14/25 release Previous Rx's ?Medication ?Instructions ?Recorded syringe with needle, safety 3 mL #50 device 02/04/21 23 gauge x 1 (Monoject Safety Syringes) needle (disp) 25 gauge 25 gauge x #100 ea 02/06/21 5/8 (BD Regular Bevel Calder) CPAP supplies, tubing #1 ea 02/03/24 albuterol sulfate 90 mcg/actuation 2 inh inhalation Q4H PRN shortness 01/14/25 aerosol inhaler of breath or wheezing #18 grams doxycycline hyclate 100 mg capsule 100 mg PO BID 10 days #20 caps 01/14/25 methylprednisolone 4 mg tablets in See Rx Instructions PO .COMPLEX 01/14/25 a dose pack (Medrol (Will)) #21 ea Allergies Allergy/AdvReac Type Severity Reaction Status Date / Time iodine Allergy ALGY-Swell Verified 10/27/24 14:01 Lip/Tongue/Throat Penicillins Allergy ALGY-Swell Verified 10/27/24 14:01 Lip/Tongue/Throat Review of Systems Const: Denies: fever(s) or chills Card: Denies: chest pain Resp: Denies: dyspnea GI: Denies: abdominal pain : Denies: dysuria, urinary frequency or urinary urgency Musc: Denies: neck pain or back pain Skin/Breast: Denies: rash PFSH ED PFSH: Medical History Hot flash, menopausal Postural dizziness with near syncope Bradycardia with 51-60 beats per minute Hematuria Stroke 2012 Chronic right hip pain CKD (chronic kidney disease) stage 2, GFR 60-89 ml/min Allergic rhinitis due to allergen Lactose intolerance Exocrine pancreatic insufficiency Hypothyroidism Hypertension SARAH (obstructive sleep apnea) CPAP Anxiety and depression GERD (gastroesophageal reflux disease) Surgical History History of right shoulder replacement History of ERCP Status post decompression of compartment syndrome right leg with several surgeries after horse accident Hx of cholecystectomy History of carpal tunnel release H/O esophagogastroduodenoscopy 10/2013 H/O colonoscopy 2016 Hx of appendectomy H/O: hysterectomy Family History Other CAD (coronary artery disease) Diabetes Denies family history of Anesthesia complication Bleeding disorder Social History Smoking and tobacco/nicotine status: unknown if used tobacco/nicotine Alcohol intake: never Substance/Drug Use: never Household members: spouse Marital status: Current occupational status: disabled Physical Exam Const: COMMON NORMALS: no acute distress GENERAL APPEARANCE: cooperative and comfortable ORIENTATION/CONSCIOUSNESS: Yes awake, Yes oriented to person, Yes oriented to place and Yes oriented to time HENMT: COMMON NORMALS: normocephalic, atraumatic and hearing grossly normal bilaterally HEAD & SCALP: normocephalic and atraumatic Resp: COMMON NORMALS: normal respiratory effort, No retractions, No use of accessory muscles and clear to auscultation bilaterally AUSCULTATION: clear to auscultation bilaterally Cardio: COMMON NORMALS: regular rate, regular rhythm and No murmurs present (Cardio) RATE: regular rate RHYTHM: regular rhythm GI: COMMON NORMALS: Soft to palpation and No hepatosplenomegaly present AUSCULTATION: Yes normoactive bowel sounds PALPATION: Yes Soft to palpation, No Tenderness to palpation present (GI), No Guarding due to palpation present (GI) and Yes No hepatosplenomegaly present Extremity: COMMON NORMALS: normal to inspection, capillary refill normal, no clubbing, cyanosis or edema, no calf tenderness and no pedal edema Neuro: SENSORIUM/ORIENTATION: Yes oriented to person, Yes oriented to place and Yes oriented to time Skin: COMMON NORMALS: no rashes or lesions noted GENERAL SKIN EXAM: no rashes or lesions noted Course Vital Signs: Vital signs: Vital Signs Temperature 97.8 F 01/14/25 10:32 Pulse Rate 73 01/14/25 13:57 Respiratory Rate 18 01/14/25 11:13 Blood Pressure 116/78 01/14/25 13:57 Pulse Oximetry 94 01/14/25 13:57 Oxygen Delivery Me thod Room Air 01/14/25 13:30 MDM - Chest Pain Medical Decision Making Chest x-ray unremarkable EKG does not show any acute changes troponin is negative will discharge patient home with exacerbation of COPD. Started on doxycycline 100 twice daily for 10 days prednisone taper and albuterol as needed encouraged stop smoking follow-up as needed Medical Records I reviewed the patient's medical records. Lab Data I reviewed the patient's lab results. 01/14/25 10:36 01/14/25 10:36 Radiology Impressions Chest X-Ray 01/14/25 10:34 IMPRESSION: Curvilinear atelectasis in the right lower lung. Laboratory Results WBC 4.96 10^3/uL (3.29-11.43) 01/14/25 10:36 RBC 4.33 10^6/uL (3.85-5.65) 01/14/25 10:36 Hgb 13.70 g/dL (11.27-16.99) 01/14/25 10:36 Hct 42.8 % (36-47) 01/14/25 10:36 MCV 98.8 fl (85-98) H 01/14/25 10:36 MCH 31.6 pg (27-33) 01/14/25 10:36 MCHC 32.0 g/dL (30-55) 01/14/25 10:36 RDW 13.6 % (12.1-15.1) 01/14/25 10:36 Plt Count 184 10^3/cmm (157-399) 01/14/25 10:36 MPV 11.1 fL (7.4-10.4) H 01/14/25 10:36 Neut % (Auto) 65.9 % 01/14/25 10:36 Lymph % (Auto) 25.4 % 01/14/25 10:36 [place] % (Auto) 7.1 % 01/14/25 10:36 Eos % (Auto) 1.2 % 01/14/25 10:36 Baso % (Auto) 0.2 % 01/14/25 10:36 Neut # (Auto) 3.27 10^3/uL (1.8-7.7) 01/14/25 10:36 Lymph # (Auto) 1.3 10^3/uL (0.8-4.8) 01/14/25 10:36 [place] # (Auto) 0.4 10^3/uL (0.2-0.9) 01/14/25 10:36 Eos # (Auto) 0.1 10^3/uL (0.0-0.8) 01/14/25 10:36 Baso # (Auto) 0.0 10^3/uL (0.0-0.1) 01/14/25 10:36 Nucleated RBC % (auto) 0 % 01/14/25 10:36 Nucleated RBCs # 0.0 /100WBC 01/14/25 10:36 Sodium 140 mmol/L (136-145) 01/14/25 10:36 Potassium 3.9 mmol/L (3.5-5.1) 01/14/25 10:36 Chloride 102 mmol/L (98-107) 01/14/25 10:36 Carbon Dioxide 26 mmol/L (22-29) 01/14/25 10:36 Anion Gap 15.9 (5-19) 01/14/25 10:36 BUN 16 mg/dL (8-23) 01/14/25 10:36 Creatinine 1.0 mg/dL (0.5-0.9) H 01/14/25 10:36 GFR Calculation 55.5 mL/min (90-130) L 01/14/25 10:36 Glucose 104 mg/dL (65-115) 01/14/25 10:36 Calculated Osmolality 291 mOsm/kg (285-295) 01/14/25 10:36 Calcium 9.6 mg/dL (8.5-10.5) 01/14/25 10:36 Total Bilirubin 0.3 mg/dL (0.15-1.2) 01/14/25 10:36 AST 17 U/L (0-32) 01/14/25 10:36 ALT 13 U/L (0-33) 01/14/25 10:36 Alkaline Phosphatase 86 U/L (35-105) 01/14/25 10:36 Troponin T Baseline < 6 ng/L (0-10) 01/14/25 10:36 Troponin T 120 Minute < 6.0 ng/L (0-10) 01/14/25 12:36 Delta Troponin T 0 ABS# (0-10) 01/14/25 12:36 Total Protein 7.2 g/dL (6.6-8.7) 01/14/25 10:36 Albumin 4.4 g/dL (3.5-5.2) 01/14/25 10:36 Globulin 2.8 g/dL (1.3-4.6) 01/14/25 10:36 All radiology interpretation(s) finalized by discharge Discharge Plan Discharge Patient Disposition: Home Clinical Impression: Acute exacerbation of chronic obstructive pulmonary disease, Bronchitis Condition: Stable Prescriptions: New doxycycline hyclate 100 mg capsule 100 mg PO BID 10 Days Qty: 20 0RF methylprednisolone [Medrol (Will)] 4 mg tablets,dose pack See Rx Instructions .ROUTE .COMPLEX Qty: 21 0RF Rx Instructions: orally per package directions albuterol sulfate 90 mcg/actuation HFA aerosol inhaler 2 inh INHALATION Q4H PRN (Reason: shortness of breath or wheezing) Qty: 18 0RF No Action (DME) Monoject Safety Syringes 3 mL 23 gauge x 1 syringe See Rx Instructions .Route Qty: 50 3RF Rx Instructions: As directed (DME) CPAP supplies, tubing See Rx Instructions .Route .MEDSUPPLY Qty: 1 0RF Rx Instructions: As directed hydrocodone-acetaminophen 7.5-325 mg tablet 1 tab PO Q6H PRN (Reason: Pain) (DME) BD Regular Bevel Calder 25 gauge x 5/8 needle See Rx Instructions .Route Qty: 100 0RF Rx Instructions: As directed for b-12 injection fexofenadine 180 mg Tablet 180 mg PO QPM rosuvastatin 10 mg tablet 10 mg PO QPM levothyroxine 25 mcg tablet 25 mcg PO QPM trazodone 100 mg tablet 50 - 100 mg PO BEDTIME fluticasone propionate 50 mcg/actuation spray,suspension 50 mcg intranasal BID PRN (Reason: allergies) metoprolol tartrate 25 mg tablet 25 mg PO BID cyanocobalamin (vitamin B-12) 1,000 mcg/mL solution 1,000 mcg IM DIRECTED Rx Instructions: On Thursday every 4 weeks dicyclomine 20 mg tablet 20 mg PO QID PRN (Reason: Abdominal Pain) pantoprazole 40 mg tablet,delayed release (DR/EC) 40 mg PO QPM escitalopram oxalate 10 mg tablet 10 mg PO DAILY bupropion HCl 150 mg tablet extended release 24 hr 150 mg PO DAILY Discharge Orders: Discharge ED (Routine); Ordered 01/14/25 Ordered By: Miguelito Nix Referrals: Candis Ramsey FNP [Primary Care Provider, Unknown] Discharge Diet: Usual diet Discharge Activity: Resume usual activity Patient Instructions: Opioid Safety, Pain Management Activity Restrictions/Additional Instructions: Thank you for choosing [facility] for your healthcare needs today. It is very important that you follow up as instructed or that you return to the Emergency Department should you have concerns or if your condition changes or worsens in any way. You were seen in the emergency room after evaluation for cough and chest pain. Your EKG does not show any acute changes and her cardiac enzymes were normal. Chest x-ray did not show any pneumonia based on the length of time he had symptoms it would be prudent at this point to put you on doxycycline 100 mg twice a day for 10 days also gave you prednisone taper and albuterol inhaler to use as needed. Strongly encouraged her to stop smoking. 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
[2025-01-14 10:47] LABS: Basophils % 0.2 %; Eosinophils # 0.1 10^3/uL (0.0-0.8); Eosinophils % 1.2 %; Hematocrit 42.8 % (36-47); Lymphocytes # 1.3 10^3/uL (0.8-4.8); Lymphocytes % 25.4 %; Mean Corpuscular Hemoglobin 31.6 pg (27-33); Mean Corpuscular Volume 98.8 fl (85-98); Mean Platelet Volume 11.1 fL (7.4-10.4); Monocytes # 0.4 10^3/uL (0.2-0.9); Monocytes % 7.1 %; Neutrophils # 3.27 10^3/uL (1.8-7.7); Neutrophils % 65.9 %; Nucleated Red Blood Cells % 0 %; Platelet Count 184 10^3/cmm (157-399); Red Blood Count 4.33 10^6/uL (3.85-5.65); Red Cell Distribution Width 13.6 % (12.1-15.1); White Blood Count 4.96 10^3/uL (3.29-11.43)
[2025-01-14 11:00] VITALS: BP 128/68; PULSE 60; O2SAT 94
[2025-01-14 11:00] LABS: Troponin(5th) Baseline < 6 ng/L (0-10)
[2025-01-14] MEDS: ipratropium-albuterol 3 mL Neb INHALATION (11:11)
[2025-01-14 11:13] VITALS: PULSE 66; RESP 18; O2SAT 96
[2025-01-14 11:19] LABS: Alanine Aminotransferase 13 U/L (0-33); Albumin Level 4.4 g/dL (3.5-5.2); Alkaline Phosphatase 86 U/L (35-105); Anion Gap 15.9 (5-19); Aspartate Amino Transferase 17 U/L (0-32); Blood Urea Nitrogen 16 mg/dL (8-23); Calcium 9.6 mg/dL (8.5-10.5); Carbon Dioxide 26 mmol/L (22-29); Chloride 102 mmol/L (98-107); Creatinine Clr Calc Pharmacy 51.6552; Globulin 2.8 g/dL (1.3-4.6); Glomerular Filtration Rate 55.5 mL/min (90-130); Glucose 104 mg/dL (65-115); Osmolality Calculated 291 mOsm/kg (285-295); Potassium 3.9 mmol/L (3.5-5.1); Sodium 140 mmol/L (136-145); Total Bilirubin 0.3 mg/dL (0.15-1.2); Total Protein 7.2 g/dL (6.6-8.7)
[2025-01-14 12:00] VITALS: BP 117/59; PULSE 73; O2SAT 97
[2025-01-14] MEDS: acetaminophen 500 mg Tablet 1000 MG PO (12:18)
--- NOTE | 2025-01-14 12:34 | ECG_ITS ---
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 Measurements Intervals [place] Rate: 65 P: 42 VA: 159 QRS: 3 QRSD: 97 T: 33 QT: 401 QTc: 417 Interpretive Statements SINUS RHYTHM Compared to ECG 12/26/2023 14:47:25 No significant changes Electronically Signed On 01-15-2025 19:35:06 CDT by Jeffery Cast M.D. [email or web address]
[2025-01-14 12:58] LABS: Troponin 5 2HR < 6.0 ng/L (0-10); Troponin 5 2HR Delta 0 ABS# (0-10)
[2025-01-14 13:30] VITALS: BP 110/49; PULSE 69; O2SAT 94
[2025-01-14 13:57] VITALS: BP 116/78; PULSE 73; O2SAT 94
== END 2025-01-14 13:58 | disposition home or self-care (01) ==
PROVIDERS: Emergency Provider Family Medicine; PCP Nurse Practitioner Family
DX: J44.1 Chronic obstructive pulmonary disease with (acute) exacerbation (principal); I12.9 Hypertensive chronic kidney disease with stage 1 through stage 4 chronic kidney disease, or unspecified chronic kidney disease; N18.2 Chronic kidney disease, stage 2 (mild); J40 Bronchitis, not specified as acute or chronic
CPT/HCPCS: 36415; 71045; 80053; 84484; 85025; 93005; 94640; 96374; 99285; J2919; J9999

== ENCOUNTER 2025-02-07 12:40 | Outpatient (CLI) | payer MEDICARE, MEDICAID, SELFPAY ==
--- NOTE | 2025-02-07 12:45 | MR_ITS ---
WS: [id number] MRI BRAIN WITHOUT CONTRAST HISTORY: HX OF CVA/PERSONAL HX OF TIA COMPARISON: 01/12/2015 TECHNIQUE: Diffusion imaging, multiplanar T1, T2 and FLAIR imaging obtained. No acute infarcts. Diffusion imaging is normal. Mild progression of small vessel changes since 2014. There is still only minimal small vessel disease with no large territory infarct. Normal hippocampal formations. Very mild frontal and temporal lobe atrophy. Ventricles and extra-axial spaces are normal. No inferior displacement of cerebellar tonsils. The sella turcica and pituitary gland are unremarkable. Dural venous sinuses and [place] demonstrate no abnormality on this unenhanced studies. Paranasal sinuses: Mild mucoperiosteal thickening in the LEFT sphenoid sinus. Otherwise sinuses are clear. No air-fluid levels. Mastoid air cells: Normal. Calvarium and scalp: Intact. MR/MR head wo con* [id number] IMPRESSION: 1. No diffusion abnormalities. 2. Mild frontal and temporal lobe atrophy. 3. Mild small vessel disease with mild progression since 2014. No large territ ory infarct.
== END 2025-02-07 12:41 | disposition home or self-care (01) ==
LOC: RAD 12:41
PROVIDERS: PCP Nurse Practitioner Family; Visit Provider Nurse Practitioner Family
DX: I67.89 Other cerebrovascular disease (principal); G31.89 Other specified degenerative diseases of nervous system; Z86.73 Personal history of transient ischemic attack (TIA), and cerebral infarction without residual deficits
CPT/HCPCS: 70551

== ENCOUNTER 2025-03-01 08:52 | Outpatient (CLI) | payer MEDICARE, MEDICAID, SELFPAY ==
--- NOTE | 2025-03-01 09:00 | USCV_ITS ---
Diane Mendoza Age: 64 Gender: F : 1960 Exam Date: 03/01/2025 09:13 Ordering Phys: Candis RamseyP PROCUREMENT ENGINEER Technologist: Exam Location: [facility] [place] Indication: cp sob BP: 130 / 80 HR: 65 Rhythm: Sinus Technical Quality: Adequate MEASUREMENTS (Male / Female) Normal Values 2D ECHO LV Diastolic Diameter PLAX 4.0 cm 4.2 - 5.9 / 3.9 - 5.3 cm IVS Diastolic Thickness 1.1 cm 0.6 - 1.0 / 0.6 - 0.9 cm IVS Systolic Thickness 1.6 cm LVPW Diastolic Thickness 1.3 cm 0.6 - 1.0 / 0.6 - 0.9 cm LVOT Diameter 2.0 cm LV Ejection Fraction 2D Teich 73.9 % LV Ejection Fraction MOD 4C 65.2 % LV Ejection Fraction MOD 2C 76.1 % LV Ejection Fraction 2C AL 77.1 % LA Diameter 3.2 cm RA Systolic Volume 4C AL 22.4 ml RA Systolic Volume 4C MOD 21.4 ml Aorta at Sinotubular Diameter 2.9 cm IVC Diameter 2.0 cm M-MODE LA Ao Ratio MM 1.0 AV Cusp Separation MM 2.0 cm DOPPLER AV Peak Velocity 117.0 cm/s LVOT Peak Velocity 75.0 cm/s AV Area Cont Eq vti 1.9 cm squared AV Area Cont Eq pk 2.1 cm squared MV Area PHT 2.3 cm squared Mitral E to A Ratio 1.0 TV Peak Velocity 170.5 cm/s TR Peak Velocity 221.0 cm/s TR Peak Gradient 19.5 mmHg TV Peak E Velocity 79.0 cm/s PV Peak Velocity 95.0 cm/s FINDINGS Left Ventricle Left ventricle is normal size. LV systolic function normal with EF of 60-65%. No regional wall motion abnormalities are seen. Grade 1 diastolic dysfunction Right Ventricle Normal in size and function Right Atrium Normal in size Left Atrium Normal in size Mitral Valve Structurally normal mitral valve. Aortic Valve Structurally normal aortic valve. No significant stenosis or regurgitation. Tricuspid Valve Mild tricuspid regurgitation. Pulmonary artery systolic pressure is normal Pulmonic Valve Not well visualized Pericardium Normal Aorta Normal in size IVC Appears to be normal CONCLUSIONS LV systolic function is normal with EF of 60-65% Grade 1 diastolic dysfunction Mild tricuspid regurgitation Layton Boothe MD (Electronically Signed) Final Date: 01 March 2025 13:25 S
== END 2025-03-01 08:53 | disposition home or self-care (01) ==
LOC: RAD 08:53
PROVIDERS: PCP Nurse Practitioner Family; Visit Provider Nurse Practitioner Family
DX: I51.9 Heart disease, unspecified (principal); I07.1 Rheumatic tricuspid insufficiency; R55 Syncope and collapse
CPT/HCPCS: 93306

== ENCOUNTER → 2025-03-22 13:59 | Outpatient (BNVA) | payer MEDICARE, MEDICAID, SELFPAY | PROVIDERS: PCP Nurse Practitioner Family; Visit Provider Internal Medicine | DX: R55 Syncope and collapse (principal); R00.2 Palpitations; I10 Essential (primary) hypertension; F17.210 Nicotine dependence, cigarettes, uncomplicated; R06.02 Shortness of breath; R07.9 Chest pain, unspecified | CPT/HCPCS: 99214 ==

== ENCOUNTER 2025-03-30 08:01 | Outpatient (CLI) | payer MEDICARE, MEDICAID, SELFPAY ==
[2025-03-30 08:19] VITALS: BMI 24.9
--- NOTE | 2025-03-30 08:21 | ECG_ITS ---
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 Interpretive Statements Lung unchanged pre/post procedure; Intraprocedure shortess of breath; Symptoms resoled by discharge PROCEDURE: At the baseline, the EKG revealed normal sinus rhythm with normal ST Ts.. The baseline heart was 63 bpm with a blood pressue of 140/79 mm of Hg Lexiscan was infused over a period of 20 seconds. A total of 0.4 milligrams of Lexiscan was infused. The stress phase was continued for a total of 5 minutes. Heart rate at the end of the stress phase was 81 bpm with a blood pressure 140/73 mm of Hg. The EKG at the peak infusion revealed no significant changes. Sestamibi was injected 20 seconds after the Lexiscan infusion. Heart rate at the end of the recovery phase was 83 bpm with a blood pressure of 128/74 mm of Hg. CONCLUSION: 1. No significant EKG changes with the LexiScan infusion 2. No LexiScan induced chest pain or cardiac arrhythmia 3. Normal blood pressure and heart rate response 4. Sestamibi/sestamibi perfusion scan pending; see separate report. Electronically Signed On 04-01-2025 12:29:41 CDT by Moo Burnham M.D. [email or web address]
--- NOTE | 2025-03-30 08:21 | NMCV_ITS ---
NM hiren perf SPECT r/s* [id number] Diane Mendoza Age: 64 Gender: F : 1960 Exam Date: 03/30/2025 09:06 Ordering Phys: Layton Boothe M.D ([email or web address]) Technologist: SHA Nash Exam Location: [facility] Indications: cp STRESS TEST [facility] IMAGE PROTOCOL Rest/Stress 1 Lexiscan Day Radiopharmaceutical Dose (mCi) Administration Site Administered by Rest: Tc-99m 10.6 IV Tammy Delcid, STREAMING MEDIA SPECIALIST Sestamibi Stress:Tc-99m 32.6 IV Tammy De La Cruzgle, STREAMING MEDIA SPECIALIST Sestamibi Rest: 30-Mar-2025 60 Discovery 630 Stress: 30-Mar-2025 30 Discovery 630 0.4mg Lexiscan. Images obtained in supine and prone position. SPECT RESULTS Technical Quality: Good Raw Data Analysis: Normal Image Corrections: No attenuation or motion correction applied Summed Stress Score: 6 Summed Rest Score: 2 Summed Difference Score: 5 PERFUSION FINDINGS Moderate area of minimal to moderately decreased tracer uptake involving the mid and apical inferior, mid inferolateral and apical lateral segments. Significant reversibility was noted in the mid inferolateral, apical lateral and apical inferior segments with the supine imaging. However with the prone imaging, no significant perfusion normalities were noted. FUNCTIONAL RESULTS (calculated via Gated SPECT) Stress Image LV EF (%): 75 Stress EDV (mL):69 TID: 1.05 Stress ESV (mL):17 FUNCTIONAL FINDINGS: Segmental wall motion analysis revealing no gross wall motion abnormalities IMPRESSIONS 1. Myocardial perfusion imaging revealing moderate area of minimal to moderate reversible defect involving the mid inferolateral, apical lateral and apical inferior segments suggesting ischemia in the distribution of the left circumflex artery. However because of the inconsistency with the prone imaging, the reliability is questionable .Clinical correlation is recommended 2. Normal LV ejection fraction 75%. 3. LV wall motion analysis revealing no gross wall motion abnormalities. 4. Normal LV volume No similar previous studies are available for comparison Dr Moo Burnham MD [facility] (Electronically Signed) Final Date: 30 March 2025 11:58 S
[2025-03-30 09:46] VITALS: BP 128/74; PULSE 83
== END 2025-03-30 08:02 | disposition home or self-care (01) ==
PROVIDERS: PCP Nurse Practitioner Family; Visit Provider Internal Medicine
DX: R07.9 Chest pain, unspecified (principal); R06.02 Shortness of breath; R94.39 Abnormal result of other cardiovascular function study; I49.8 Other specified cardiac arrhythmias
CPT/HCPCS: 36415; 78452; 93017; 96374; A9500; J2785

== ENCOUNTER 2025-04-26 08:46 | Outpatient (CLI) | payer MEDICARE, MEDICAID, SELFPAY ==
[2025-04-26] VITALS (17 sets, daily range): BP systolic 104–152; BP diastolic 50–92; PULSE 69–103; RESP 11–25; TEMP 36.9; O2SAT 95–99; BMI 24.9
--- NOTE | 2025-04-26 09:00 | XACV_ITS ---
Exam Room: 2 Ht: 163 cm Wt: 66 kg BSA: 1.73 m2 Gender: Female : 1960 Any Known Allergies: Iodine Exam Priority: Routine Procedure(s): Procedure Description: Diagnostic procedure Procedure Description: Left Heart Catheterization Procedure Description: Left ventriculography Procedure Description: Miscellaneous Procedure Description: Angio-Seal Procedure Description: Coronary Angiography Diagnostic Cath Status: Elective Diagnostic Findings * INDICATION: Chest pain/ abnormal stress test/ syncope/ Non-sustained VT. * No significant disease noted in the Left Main, Left Anterior Descending, Right, or Circumflex coronary arteries. * Coronary angiography shows right dominance. Conclusions 1. No significant disease noted in the Left Main, Left Anterior Descending, Right, or Circumflex coronary arteries. 2. Normal left ventricular systolic function. Ejection fraction of 55%. Recommendations * We will uptitrate metoprolol. Aggressive risk factor modification. * Outpatient cardiology follow up in 2-4 weeks. Interventional RX Recommendation: medical therapy and/or counseling Diagnostic RX Recommendation: medical therapy and/or counseling Ventriculography Ejection Fraction: 55.0 % Pressures Phase:Rest AO : 173 / 87 ( 122 ) @ 12:15:00 PM 150 / 130 ( 115 ) @ 12:17:00 PM 148 / 102 ( 125 ) @ 12:21:00 PM 190 / 84 ( 129 ) @ 12:25:00 PM 189 / 83 ( 128 ) @ 12:25:00 PM LV : 187 / -15 12 @ 12:24:00 PM 190 / -14 / 15 @ 12:24:00 PM 190 / -14 / 15 @ 12:25:00 PM Valves Phase:DefaultPhase AV : 0.0 @ 11:36:09 AM AV Mean Gradient: 0.0 @ 11:36:09 AM Clinical Evaluation EBL: 5mL-10mL Procedural Details Pre-Procedure Time Out. Identified patient by full name and date of as verbalized by the patient/guarantor. Does the consent match the physician's order: Yes. Accurate & Complete Informed Consent: Yes. Inpatient/Outpatient History & Physical on Chart: Yes. If H&P is completed, is and addenduem needed: No; If yes, is the addendum complete: N/A. Visualize and Verify Site with Patient/Guarantor: N/A. Relevant Radiology Images available: Yes. Pre-op teaching completed and patient verbalized understanding. The risks, benefits, and alternatives of sedation and/or procedure were discussed by physician. The patient agrees to continue. Procedure started. Current Diagnosis : Chest Pain. HA Clinical Fraility Score: 3: Managing Well. Water/Wastewater Engineer Indications: Cardiac Arrhythmia. Chest Pain Symptom Assessment: Typical Angina Symptoms. Correct patient, site and procedure confirmed by cath team. Current diagnosis: Chest Pain. PERRLA. Strong, equal hand oil burner installer bilaterally. Lungs clear x 5 lobes. IV Site on Arrival: 20 gauge in the right anticubital. IV Fluids: 0.9% NaCl at KVO. 0 mL infused prior to slab puller. Pre Procedural Pulses: bilateral dorsalis pedis was Doppled. Pre Procedural Pulses: bilateral posterior tibial was Doppled. Pre Procedural Pulses: bilateral radial was 1+. Oxygen started at 2liters/min via nasal canula. right groin was prepped with chloroprep then draped in the usual sterile fashion. right radial was prepped with chloroprep then draped in the usual sterile fashion. Baseline sample Acquired. HR: 72 BPM. Physician arrived. Ultrasound being used to obtain arterial access. Lidocaine 1% infiltrated to the right radial. Arterial access obtained. A TR Band was successful obtaining hemostatsis at the Right Radial artery insertion site. Lidocaine 1% infiltrated to the right groin. Arterial access obtained with micropuncture set. A 5 pashto JL4 catheter in over wire. Multiple views taken of left coronary artery. Catheter removed over the exchange wire. A 5 pashto JR4 catheter in over wire. Multiple views taken of right coronary artery. Catheter removed over the exchange wire. A 5 pashto Angled Pig catheter in over wire. EDP Sample taken: LV 187/-16,12; HR: 70 BPM; SpO2: 98%. LV gram performed in COLLAZO @ 10 mL/second for a total of 30 mL. EDP Sample taken: LV 190/-15,15; HR: 70 BPM; SpO2: 98%. Pullback taken: LV 190/-15,15; AO 190/84(129); Mean: 0mmHg, Peak to Peak: 0mmHg, SEP: 7sec/min; HR: 70 BPM; SpO2: 98%. Catheter removed over the exchange wire. A Right femoral angiogram was performed to determine safe placement of closure device. Lidocaine 1% infiltrated to the right groin. A Angio-Seal VIP ([facility] [facility]) was successful obtaining hemostatsis at the Right Femoral artery insertion site. Post Procedure: Pulses reassessed and unchanged. PERRLA. Strong, equal hand oil burner installer bilaterally. No VTE prophylaxis required. Medication's Wasted: Nitro = 50 mcg. Medication's Wasted: Other = Fentanyl 50 mcg. Medication's Wasted: Other = Hydralazine 10mg. Total IV fluids: 30 mL. Post-op diagnosis: Non-obstructive CAD. Complications: None. Estimated blood loss: 5mL-10mL. Responsiveness - Normal response to verbal stimuli; alert and oriented, PERRLA. Airway - Unaffected, no intervention required; spontaneous ventilation. Circulation: W/N/L, pulses unchanged. Nausea/Vomiting: No. Procedure completed. Patient transferred by bed to 1st floor. Vital chart was stopped. Access Site Site: Right Radial artery Sheath Size: 6 Fr Hemostasis Method: TR Band Hemostasis Success: Successful Site: Right Femoral artery Sheath Size: 6 Fr Hemostasis Method: Angio-Seal VIP ([facility]) Hemostasis Success: Successful Procedure Medications Start: 10:52 AM Stop: 10:52 AM Medication: Versed 1 mg and Fentanyl 25 mcg Amount: 1 Route: I.V. Start: 11:00 AM Stop: 11:00 AM Medication: Versed Amount: 1 mg Route: I.V. Start: 11:10 AM Stop: 11:10 AM Medication: Versed Amount: 1 mg Route: I.V. Start: 11:11 AM Stop: 11:11 AM Medication: Versed 1 mg and Fentanyl 25 mcg Amount: 1 Route: I.V. Start: 11:25 AM Stop: 11:25 AM Medication: Hydralazine Amount: 10 mg Route: I.V. I, the attending physician, have reviewed and verified all procedure medications. Yes, all medications given per verbal order History/Risk Factors Hypertension: Yes Dyslipidemia: No Peripheral Arterial Disease (PAD): No Myocardial Infarction (MN): No Obesity: No Renal Disease: No Tobacco Use: Current/Recent(w/in 1 year) Prior Interventions PCI: No CABG: No Valve Surgery: No Report Signatures Finalized by Layton Boothe MD on 04/26/2025 11:52 AM
[2025-04-26 10:20] LABS: Hematocrit 37.7 % (36-47); Hemoglobin 12.60 g/dL (11.27-16.99); Mean Corpuscular HGB Conc 33.4 g/dL (30-55); Mean Corpuscular Hemoglobin 31.8 pg (27-33); Mean Corpuscular Volume 95.2 fl (85-98); Nucleated Red Blood Cells % 0 %; Platelet Count 185 10^3/cmm (157-399); Red Blood Count 3.96 10^6/uL (3.85-5.65); White Blood Count 7.62 10^3/uL (3.29-11.43)
--- NOTE | 2025-04-26 10:25 | W.PM.OPSFHP ---
Same Day Surgery H&P Indication for Procedure/HPI DATE OF PROCEDURE: April 26, 2025 CHIEF COMPLAINT/INDICATIONFOR SURGICAL PROCEDURE: Chest pain/ abnormal stress test/ syncope/ Non-sustained VT PREOP DIAGNOSIS: Chest pain/ abnormal stress test/ syncope/ Non-sustained VT PLANNED PROCEDURE: Operation Date: 04/26/25 10:00 Proposed Procedures p Cardiac Catheterization - [facility] w/wo & Coros(Left) - Layton Boothe M.D Possible percutaneous coronary intervention 64-year-old woman with past medical history of hyperlipidemia, hypertension who has been having recurrent syncopal episodes. Also feels chest tightness. Had stress test that is showing ischemia in the circumflex artery territory. property assessment monitor showed 1 episode of 7-second longer nonsustained ventricular tachycardia. Plan for coronary angiogram with possible percutaneous coronary intervention Medications/Allergies* Home Medications ?Medication ?Instructions ?Recorded ?Confirmed ?Type fexofenadine 180 mg tablet 180 mg PO QPM 10/12/24 04/26/25 History fluticasone propionate 50 50 mcg intranasal BID PRN allergies 10/12/24 04/26/25 History mcg/actuation nasal spray,suspension levothyroxine 25 mcg tablet 25 mcg PO QPM 10/12/24 04/26/25 History metoprolol tartrate 25 mg tablet 25 mg PO BID 10/12/24 04/25/25 History rosuvastatin 10 mg tablet 10 mg PO QPM 10/12/24 04/26/25 History cyanocobalamin (vitamin B-12) 1,000 mcg IM DIRECTED 10/14/24 04/26/25 History 1,000 mcg/mL injection solution hydrocodone 7.5 mg-acetaminophen 1 tab PO Q6H PRN Pain 10/24/24 04/25/25 History 325 mg tablet bupropion HCl 150 mg 24 hr tablet, 150 mg PO DAILY 01/14/25 04/26/25 History extended release dicyclomine 20 mg tablet 20 mg PO QID PRN Abdominal Pain 01/14/25 04/26/25 History escitalopram oxalate 10 mg tablet 10 mg PO DAILY 01/14/25 04/26/25 History pantoprazole 40 mg tablet,delayed 40 mg PO QPM 01/14/25 04/25/25 History release Allergies/Adverse Reactions Allergy/AdvReac Type Severity Reaction Status Date / Time iodine Allergy LULAJimmy Verified 03/22/25 14:48 Lip/Tongue/Throat Penicillins Allergy ALGY-Sergey Verified 03/22/25 14:48 Lip/Tongue/Throat Current Medications: Generic Name Dose Route Start Last Admin Trade Name Freq PRN Reason Stop Dose Admin Sodium Chloride 1,000 mls @ 50 mls/hr 04/26/25 09:00 04/26/25 09:56 Sodium Chloride 0.9% IV 04/27/25 04:59 Not Given .Q20H ONE Pertinent History/Comorbid Conditions* Medical History (Updated 03/22/25 @ 15:18 by Layton Boothe M.D) Hot flash, menopausal Postural dizziness with near syncope Bradycardia with 51-60 beats per minute Hematuria Stroke 2012 Chronic right hip pain CKD (chronic kidney disease) stage 2, GFR 60-89 ml/min Allergic rhinitis due to allergen Lactose intolerance Exocrine pancreatic insufficiency Hypothyroidism Hypertension SARAH (obstructive sleep apnea) CPAP Anxiety and depression GERD (gastroesophageal reflux disease) Surgical History (Updated 01/04/21 @ 12:35 by Kj Stephens MD) History of right shoulder replacement History of ERCP Status post decompression of compartment syndrome right leg with several surgeries after horse accident Hx of cholecystectomy History of carpal tunnel release H/O esophagogastroduodenoscopy 10/2013 H/O colonoscopy 2016 Hx of appendectomy H/O: hysterectomy Family History (Updated 09/05/19 @ 12:55 by Gloria Murillo LPN) Diabetes CAD (coronary artery disease) Denies family history of Anesthesia complication Bleeding disorder Social History Smoking and tobacco/nicotine status: current every day tobacco/nicotine user cigarettes Alcohol intake: never Substance/Drug Use: never Household members: spouse Marital status: Current occupational status: disabled Pertinent Exam Findings alert, oriented x 3, clear to auscultation bilaterally and regular rate & rhythm Conscious Sedation Assessment PATIENT ASSESSED PRIOR TO SEDATION, WITH NO CHANGE NOTED: Yes AIRWAY EVAL/ANESTHESIA PLAN: normal airway, ASA III, Local Anesthesia, Risks, benefits & alternatives of sedation and/or procedure discussed and Patient agrees to continue as planned ADDITIONAL INFORMATION: Moderate sedation Recommendations Risks and benefits of procedure reviewed and Patient/family agree to proceed Surgery/Procedure today (Left heart cath with possible percutaneous coronary intervention) Coding Level of Care Code Acute Code for Anuelg Fwd
[2025-04-26 10:42] LABS: Anion Gap 15.3 (5-19); Blood Urea Nitrogen 20 mg/dL (8-23); Calcium 9.9 mg/dL (8.5-10.5); Carbon Dioxide 26 mmol/L (22-29); Chloride 103 mmol/L (98-107); Creatinine Clr Calc Pharmacy 64.5690; Glucose 148 mg/dL (65-115); Osmolality Calculated 295 mOsm/kg (285-295); Potassium 4.3 mmol/L (3.5-5.1); Sodium 140 mmol/L (136-145)
--- NOTE | 2025-04-26 12:19 | PC.NURSE ---
At 1144, patient received from laborer aquatic life via bed. Patient is s/p [facility] with right radial access and right femoral access. TR band in place to right wrist, angioseal deployed to right femoral site. No s/s of bleeding or hematoma formation observed to either site. Instructed patient on site care with restrictions. Patient verbalized complete understanding. Patient does c/o chronic hip pain. Informed Neyda Broderick NP and received ok to restart home dose of Hydrocodone.
[2025-04-26] MEDS: HYDROcodone-acetaminophen 7.5-325 mg Tablet 1 TAB PO (12:24)
--- NOTE | 2025-04-26 14:41 | PC.NURSE ---
Initiated TR band removal at 1230 removing 2ml of air every 10-15min until all air removed at this time. TR band removed. No s/s of bleeding or hematoma formation observed. Instructed patient on site care with restrictions. Patient verbalized complete understanding. Patient denies pain or needs at this time. No distress observed.
--- NOTE | 2025-04-26 17:08 | PC.NURSE ---
Patient discharged to home. Instruction provided regarding follow up apointments, site care with restrictions and medication changes. Patient verbalized complete understanding. No bleeding or hematoma formation observed to either site. Patient denies pain or needs. No distress observed. Patient taken by wheelchair to private vehicle. Spouse to provided transportation.
== END 2025-04-26 17:11 | disposition home or self-care (01) ==
LOC: CCL 08:50 → CSU 11:37
PROVIDERS: PCP Nurse Practitioner Family; Visit Provider Internal Medicine
DX: R07.9 Chest pain, unspecified (principal); R55 Syncope and collapse; R94.39 Abnormal result of other cardiovascular function study; K21.9 Gastro-esophageal reflux disease without esophagitis; I12.9 Hypertensive chronic kidney disease with stage 1 through stage 4 chronic kidney disease, or unspecified chronic kidney disease; N18.2 Chronic kidney disease, stage 2 (mild); G47.33 Obstructive sleep apnea (adult) (pediatric); Z99.89 Dependence on other enabling machines and devices; E03.9 Hypothyroidism, unspecified; F41.8 Other specified anxiety disorders; R00.1 Bradycardia, unspecified; F17.210 Nicotine dependence, cigarettes, uncomplicated
CPT/HCPCS: 36415; 80048; 85025; 93458; 99152; 99153; C1760; C1769; C1887; C1894; G0269; J0360; J1644; J2250; J3010; J3490; J7030; J9999; Q0163; Q9967

== ENCOUNTER → 2025-06-12 13:04 | Outpatient (BNVA) | payer MEDICARE, MEDICAID, SELFPAY | PROVIDERS: PCP Nurse Practitioner Family; Visit Provider Internal Medicine | DX: Z09 Encounter for follow-up examination after completed treatment for conditions other than malignant neoplasm (principal); R07.89 Other chest pain | CPT/HCPCS: 99213 ==

== ENCOUNTER → 2025-06-13 08:13 | Outpatient (BNVA) | payer MEDICARE, MEDICAID, SELFPAY | PROVIDERS: PCP Nurse Practitioner Family; Visit Provider Podiatrist Foot & Ankle Surgery | DX: M79.672 Pain in left foot (principal); G57.62 Lesion of plantar nerve, left lower limb; I10 Essential (primary) hypertension | CPT/HCPCS: 64455; 73630; 99213; J1100; J3420; J3490 ==

== ENCOUNTER → 2025-07-05 09:14 | Outpatient (BNVA) | payer MEDICARE, MEDICAID, SELFPAY | PROVIDERS: PCP Nurse Practitioner Family; Visit Provider Podiatrist Foot & Ankle Surgery | DX: G57.62 Lesion of plantar nerve, left lower limb (principal) | CPT/HCPCS: 99214 ==

== ENCOUNTER 2025-07-19 12:49 | Outpatient (CLI) | payer MEDICARE, MEDICAID, SELFPAY ==
--- NOTE | 2025-07-19 13:00 | MRR_ITS ---
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 Exam focused on the forefoot. Contrast material: MULTIHANCE; Contrast volume: 14 ml; Contrast route: INTRAVENOUS (IV); COMPARISON: CR XR foot LT min 3V* [id number] 06/13/2025 8:22 AM FINDINGS: Bones/joints: There is mild scarring of the 3rd intermetatarsal space consistent with provided history of previous removal of Krueger neuroma. No recurrent mass is identified, series 501, image 27. Visible bone marrow is within normal limits. 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 No visible acute skeletal pathology. LIGAMENTS: Collateral ligaments of digits: Unremarkable. No evidence of tear. Lisfranc ligament: Lisfranc ligament is unremarkable. No evidence of tear. TENDONS: Flexor tendons of foot: The flexor tendons are unremarkable. Extensor tendons of foot: The extensor tendons are unremarkable. Soft tissues: Unremarkable. MR/MR foot LT wo/w con [id number] IMPRESSION: 1. No visible acute skeletal pathology. 2. There is mild scarring of the 3rd intermetatarsal space consistent with provided history of previous removal of Krueger neuroma. No recurrent mass is identified, series 501, image 27.
[2025-07-19] MEDS: gadobenate dimeglumine 20 mL vial 14 ML IV (13:40)
== END 2025-07-19 12:50 | disposition home or self-care (01) ==
LOC: RAD 12:52
PROVIDERS: PCP Nurse Practitioner Family; Visit Provider Podiatrist Foot & Ankle Surgery
DX: M79.672 Pain in left foot (principal); G57.62 Lesion of plantar nerve, left lower limb
CPT/HCPCS: 73720

== ENCOUNTER → 2025-07-26 09:58 | Outpatient (BNVA) | payer MEDICARE, MEDICAID, SELFPAY | PROVIDERS: PCP Nurse Practitioner Family; Visit Provider Podiatrist Foot & Ankle Surgery | DX: G57.62 Lesion of plantar nerve, left lower limb (principal) | CPT/HCPCS: 99213 ==